=== PATIENT | male | born 1935 | race Caucasian/White ===

== ENCOUNTER 2017-03-16 20:12 | Emergency (ER) | payer OTHER ==
[~2017-03-16] VITALS: Ht 185.4 cm; Wt 86.5 kg
[2017-03-16 20:17] VITALS: TEMP 36.6; Ht 185.4 cm; Wt 86.5 kg
[2017-03-16] MEDS ORDERED: FURO-85 PO (20:41)
[2017-03-16] MEDS ORDERED: AMOX875T PO (20:41)
[2017-03-16] MEDS ORDERED: FLUT0.15 NAE (20:44)
[2017-03-16] MEDS ORDERED: AZEL0.1S2 NAE (20:44)
--- NOTE | 2017-03-16 20:58 | DIAGNOSTIC IMAGING REPORT ---
CHEST ONE VIEW PORTABLE CLINICAL HISTORY: cough dyspnea COMPARISON STUDY: No previous studies for comparison. FINDINGS: Heart top normal in terms of size. Minimal interstitial infiltrates both lung bases. Mid and upper lungs are clear. IMPRESSION: Minimal bibasilar parenchymal infiltrates. The above report was generated using voice recognition software. It may contain grammatical, syntax or spelling errors. Electronically signed by: Linden Briones M.D. 03/16/2017 8:57 PM Dictated Date/Time: 03/16/2017 8:57 PM
--- NOTE | 2017-03-16 21:20 | EMERGENCY ROOM VISIT NOTE ---
History Report prepared by Ghada: Nima Gates Under the Supervision of: Dr. Claude Roth D.O. First contact with patient: 20:20 Chief Complaint: CARDIAC ASSESSMENT Stated Complaint: HEART FAILURE History of Present Illness The patient is an 82 year old male who presents to the Emergency Room with complaints of constant lower extremity edema beginning a week ago. The patient states that he was told to come to the emergency department today for CHF by a nurse at [facility]. He notes that he went to [facility] today for sinus issues, and was put on amoxicillin and Lasix. He also complains of SOB and congestion. He reports that his legs are currently not as swollen and tight as they were yesterday. He states that his SOB symptoms worsen when he walks and uses the stairs, but thought this was due to his sinus infection. He denies any chest pain and leg pain. He states that he is currently taking a thyroid pill. Outpatient pro BNP was 1691, for his age greater than 1800 is considered abnormal. Additional blood work today showed a BUN of 24, creatine of 1.3. Electrolytes were normal, CBC was normal. Patient was started on Lasix 20mg 1-2 times per day for slight swelling and amoxicillin. Source of History: patient Onset: a week ago Position: other (lower extremities) Quality: other (edema) Timing: constant Modifying Factors (Worsening): movement, other (walking up the stairs) Associated Symptoms: + SOB, No chest pain Note: He also complains of congestion. He denies any leg pain. Review of Systems See HPI for pertinent positives & negatives. A total of 10 systems reviewed and were otherwise negative. Past Medical & Surgical Medical Problems: (1) Sinus infection Family History No pertinent family history stated. Social History Smoking Status: Never Smoker Marital Status: single Occupation Status: employed Current/Historical Medications Scheduled Amoxicillin & Pot Clavulanate (Augmentin 875-125 mg), 1 TAB PO BID Azelastine HCl (Azelastine Hydrochloride), 1 SPRAY EDELMIRA BID Fluticasone Propionate (Nasal) (Flonase Allergy Relief), 1 SPRAYS EDELMIRA BID Furosemide (Lasix), 20 MG PO DAILY Allergies Coded Allergies: Sulfa Antibiotics (Unverified Allergy, Unknown, RASH, 03/16/17) Physical Exam Vital Signs Date Time Temp Pulse Resp B/P (MAP) Pulse Ox O2 Delivery O2 Flow Rate FiO2 12/5/17 21:01 95 03/16/17 20:42 Room Air 03/16/17 20:17 36.6 109 22 155/83 96 Room Air Physical Exam CONSTITUTIONAL/VITAL SIGNS: Reviewed / noted above. GENERAL: Non-toxic in appearance. INTEGUMENTARY: Warm, dry, and [place]. HEAD: Normocephalic. EYES: without scleral icterus or trauma. ENT/OROPHARYNX: clear and moist. LYMPHADENOPATHY/NECK: Is supple without lymphadenopathy or meningismus. RESPIRATORY: Lungs clear and equal. CARDIOVASCULAR: Regular rate and rhythm. GI/ABDOMEN: Soft and nontender. No organomegaly or pulsatile mass. No rebound or guarding. Normal bowel sounds. EXTREMITIES: Warm and well perfused. Bilateral pitting pedal edema noted. BACK: No CVA tenderness. NEUROLOGICAL: Intact without focal deficits. PSYCHIATRIC: normal affect. MUSCULOSKELETAL: Normally developed with good muscle tone. Medical Decision & Procedures ER Provider Diagnostic Interpretation: Radiology results as stated below per my review and radiologist interpretation: CHEST ONE VIEW PORTABLE FINDINGS: Heart top normal in terms of size. Minimal interstitial infiltrates both lung bases. Mid and upper lungs are clear. IMPRESSION: Minimal bibasilar parenchymal infiltrates. The above report was generated using voice recognition software. It may contain grammatical, syntax or spelling errors. Electronically signed by: Linden Briones M.D. 03/16/2017 8:57 PM Laboratory Results Test 03/16/17 20:44 Bedside Troponin I 0.050 ng/ml (0-0.045) Laboratory results as stated above per my review. ECG Indication: SOB/dyspnea Rate (beats per minute): 106 Rhythm: sinus tachycardia Findings: RBBB, no ectopy, other (no acute injury) ED Course 2022: Previous medical records were reviewed. The patient was evaluated in room C6. A complete history and physical examination was performed. 2124: On reevaluation, the patient is doing well. I discussed the results and findings with the patient. He verbalized agreement of the treatment plan. The patient was discharged home. Medical Decision the differential was considered includes acute myocardial infarction, acute coronary syndrome, myocarditis, pericarditis, pericardial effusions /tamponade, esophageal perforation, pulmonary embolism, pneumonia, pneumothorax, cardiomyopathy, congestive heart, anemia , COPD/asthma exacerbation. This is an 82-year-old male who presents to the ED with a chief complaint of being called marylu and told to come in to the hospital for evaluation of congestive heart failure. The patient states that he went to the office today for sinus issues and lower extremity edema. He has had the edema for a couple of weeks now. This was new onset for him. The patient was discharged on Lasix for his lower extremity edema and also placed on Augmentin. The patient does have a little shortness of breath at times. He states that he feels like he has postnasal drip and has to cough to clear his throat on occasion. I did review the [facility] notes on the patient. The patient had blood work performed including a proBNP was noted to be 1691. The reference reports greater than 75 years old and needs to be greater than 1800 40 just heart failure. The patient's CBC was normal and the BUN is 24 and creatinine is 1.3. Complete metabolic panel was unremarkable. Today's twelve-lead EKG reveals a sinus tach at a rate of 106. The patient's exam reveals bilateral pitting pedal edema that is symmetric. He denies any calf pain, leg pain, chest pains or shortness of breath. He has not had recent surgery. The lungs are clear. Chest x-ray does report minimal bibasilar infiltrates. The patient was told to continue his Augmentin. He has not hypoxic and his breathing appears comfortable. He is felt to be stable for discharge and outpatient follow-up. He does have an echocardiogram scheduled. Blood Pressure Screening Patient's blood pressure: Elevated blood pressure Blood pressure disposition: Referred to PCP Impression Primary Impression: Pneumonia Additional Impression: Pedal edema Scribe Attestation The scribe's documentation has been prepared under my direction and personally reviewed by me in its entirety. I confirm that the note above accurately reflects all work, treatment, procedures, and medical decision making performed by me. Departure Information Dispostion Home / Self-Care Referrals No Doctor, Assigned (PCP) Forms IMPORTANT VISIT INFORMATION Patient Instructions My [facility], Pneumonia Additional Instructions Continue medications as prescribed by your doctor. Follow-up with them for outpatient echocardiogram. Return for any new or worsening symptoms. Problem Qualifiers
[2017-03-16 21:31] VITALS: BP 156/95; PULSE 107; O2SAT 95
== END 2017-03-16 21:31 | disposition home or self-care (01) ==
LOC: C.EDB 20:15 → C.EDC 21:31
DX: J18.9 Pneumonia, unspecified organism (principal); R60.0 Localized edema

== ENCOUNTER 2017-05-06 15:42 | Inpatient (IN) | payer OTHER ==
[~2017-05-06] VITALS: Ht 185.4 cm; Wt 77.1 kg
[~2017-05-06 15:42] MED LIST: AMOX875T PO; AZEL0.1S2 NAE; FLUT0.15 NAE; FURO-85 PO
[2017-05-06] MEDS ORDERED: ASPIRIN 325 MG ECTAB PO ONE (17:00)
--- NOTE | 2017-05-06 17:33 | DIAGNOSTIC IMAGING REPORT ---
CHEST ONE VIEW PORTABLE HISTORY: 82 years-old Male SOB, h/o pneumonia acute shortness of breath with history of pneumonia COMPARISON: Chest radiograph 03/16/2017 TECHNIQUE: Portable AP view of the chest FINDINGS: Cardiac silhouette is mildly enlarged, unchanged. Atherosclerosis of the aorta. There is no pneumothorax. Chronic coarse interstitial opacities redemonstrated. Similar appearing ill-defined subsegmental opacities of the left greater than right lung bases. Chronic appearing blunting of the costophrenic angles without large pleural effusion. No overt pulmonary edema. Bones of the chest appear grossly intact. Multilevel endplate spurring of the spine. IMPRESSION: 1. Similar-appearing subsegmental opacities of the left greater then right lung bases suggests atelectasis/scarring with pneumonia thought to be less likely. 2. Chronic coarse interstitial opacities. 3. Mild cardiomegaly without overt pulmonary edema. The above report was generated using voice recognition software. It may contain grammatical, syntax or spelling errors. Electronically signed by: Bassam Judd M.D. 05/06/2017 5:31 PM Dictated Date/Time: 05/06/2017 5:28 PM
[2017-05-06] MEDS ORDERED: LEVO1TAB35 PO (17:47)
[2017-05-06] MEDS ORDERED: ASPI-232 PO (17:47)
[2017-05-06] MEDS ORDERED: CARV3.122 PO (17:47)
[2017-05-06] MEDS ORDERED: LEVO50TA PO (17:47)
[2017-05-06] MEDS ORDERED: ATOR-22 PO (17:47)
[2017-05-06 17:53] LABS: BASO % 0.2 %; BASO ABS # 0.02 K/uL (0-0.2); EOS % 1.5 %; EOS ABS # 0.15 K/uL (0-0.5); HEMATOCRIT 45.8 % (42-52); HEMOGLOBIN 15.9 g/dL (14.0-18.0); IG# 0.08 K/uL (0.00-0.02); LYMPH % 18.6 %; MEAN CELL VOLUME 90.3 fL (80-100); MEAN CORPUSCULAR HEMOGLOBIN 31.4 pg (25-34); MEAN CORPUSCULAR HGB CONC 34.7 g/dl (32-36); MEAN PLATELET VOLUME 10.2 fL (7.4-10.4); MONO % 10.5 %; MONO ABS # 1.07 K/uL (0.11-0.59); NEUT % 68.4 %; NEUT ABS # 7.01 K/uL (1.4-6.5); PLATELET COUNT 248 K/uL (130-400); RED CELL DISTRIBUTION WIDTH CV 12.7 % (11.5-14.5); RED CELL DISTRIBUTION WIDTH SD 41.9 fL (36.4-46.3); WHITE BLOOD COUNT 10.23 K/uL (4.8-10.8)
--- NOTE | 2017-05-06 18:03 | EMERGENCY ROOM VISIT NOTE ---
ED Visit Note First contact with patient: 16:24 The patient was seen and examined with Dr. Linden Shea. I agree with the history, physical and findings. Please see the note for disposition and details. Patient's electrocardiogram was interpreted by me and stated below. Sinus rhythm with a rate of 88. WI intervals are within normal limits. QRS interval is increased at 105. QTc interval is increased at 527. No ST elevation or depression. No acute ischemic change. Compared to 03/16/17 - no change was noted. Patient was admitted to medicine for CHF exacerbation. Elevated pro BNP, elevated troponin. Elevated troponin is most likely thought to be due to CHF exacerbation. Discussed the findings with the hospitalist team who admitted the patient. They state they will trend troponins. ADDENDUM 0014 05/07/17: D-dimer was positive, called and alerted [facility] hospitalist who admitted the patient and notified him of results states he will follow up and order necessary diagnostic testing.
--- NOTE | 2017-05-06 18:09 | EMERGENCY ROOM VISIT NOTE ---
History First contact with patient: 16:24 Chief Complaint: SHORTNESS OF BREATH Stated Complaint: SOB, WEAKNESS- PNEUMONIA Nursing Triage Summary: "I ran out of breath. I can't walk across the room without gasping for air" Cough. No fever. Started on an ABX on 04/28 for presumed pneumonia per daughter. History of Present Illness 82M with a PMHX of Hypothyroidism and LE edema p/w with an acute (2 days) on chronic (x 2 months) exacerbation of SOB. Pt was talking to his daughter over the phone, daughter states that the patient was slightly more confused than usual yesterday, and today the patient felt so SOB that he requested his daughter bring him into the ER. Patient was recently in March started on Lasix for bilateral LE edema. He was also recently seen by his PCP and started on Levoquin for pneumonia. Patient denies any significant cardiac history however at a recent doctor's visit pt was told he had a heart attack in the past. Pt denies chest pain, he does have a non productive cough. Per [facility] chart review pt has orders to get a BNP. Recent [facility] Xrays in Apr showed evidence of Pneumonia and/or mild CHF. ROS: Recent weight loss due to poor appetite, no fevers, no chills, + SOB, no diarrhea, no vomiting, no hematuria. Meds: Synthroid, 20mg of Lasix BID since March, , Levofloxacin (Started on Apr 26) - last took meds this AM. SHX: Pt lives on his own and takes care of himself, performs all ADLs on his own. Never smoker. 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 Source of History: patient, other (daughter) Onset: two days ago Symptom Intensity: moderate Modifying Factors (Worsening): exertion (SOB worse on exertion) Modifying Factors (Relieving): rest (SOB improved w exertion) Associated Symptoms: + cough, + SOB, No LOC, No fevers, No chills, No headache, No chest pain, No nausea, No vomiting, No abdominal pain, No diarrhea Review of Systems See HPI for pertinent positives and negatives. A total of ten systems were reviewed and were otherwise negative. Past Medical/Surgical History Medical Problems: (1) Elevated troponin (2) Sinus infection (3) SOB (shortness of breath) on exertion Social History Smoking Status: Never Smoker Marital Status: single Occupation Status: employed Current/Historical Medications Scheduled Aspirin (Aspir-81), 81 MG PO DAILY Atorvastatin (Lipitor), 20 MG PO DAILY Azelastine HCl (Azelastine Hydrochloride), 1 SPRAY EDELMIRA BID Carvedilol (Coreg), 3.125 MG PO BID Fluticasone Propionate (Nasal) (Flonase Allergy Relief), 1 SPRAYS EDELMIRA BID Furosemide (Lasix), 20 MG PO BID17 Levofloxacin (Levaquin), 750 MG PO DAILY Levothyroxine Sodium (Synthroid), 50 MCG PO DAILY Physical Exam Vital Signs Date Time Temp Pulse Resp B/P (MAP) Pulse Ox O2 Delivery O2 Flow Rate FiO2 05/06/17 19:19 100 20 144/86 98 Room Air 05/06/17 18:27 97 05/06/17 18:25 96 20 146/87 97 Room Air 05/06/17 17:38 95 Room Air 05/06/17 17:18 88 20 127/77 97 Room Air 05/06/17 15:48 36.3 97 22 135/74 95 Room Air Physical Exam Gen: No acute distress. HEENT: Head - normocephalic and atraumatic. Pupils are equal, round, and reactive to light. Extraocular eye muscles are intact and sclera are anicteric. Nose - moist nasal mucosa without discharge. Mouth - moist buccal mucosa. Oropharynx is nonerythematous and there is no tonsillar exudate or edema noted. Neck: Supple; no JVD, nuchal rigidity, cervical lymphadenopathy, or auscultated bruits. Heart: Regular rate and rhythm. There is a normal S1 and S2 with no murmurs, clicks, or gallops appreciated. No JVD. Heart non displaced. * Lungs: Bilateral crackes on the lung bases. Abdomen: Soft, completely nontender, nondistended, with good bowel sounds. There are no palpable pulsatile masses or hepatosplenomegaly. There is no guarding, rigidity, or rebound noted. * Extremities: No evidence of cyanosis, clubbing, 2+ pitting edema. There are easily palpable peripheral pulses. Neuro:The patient is awake and alert, oriented to day, time, and place. Muscle strength is 5/5 in all 4 extremities. 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 There are no cerebellar signs. Medical Decision & Procedures ER Provider Diagnostic Interpretation: CHEST ONE VIEW PORTABLE HISTORY: 82 years-old Male SOB, h/o pneumonia acute shortness of breath with history of pneumonia COMPARISON: Chest radiograph 03/16/2017 TECHNIQUE: Portable AP view of the chest FINDINGS: Cardiac silhouette is mildly enlarged, unchanged. Atherosclerosis of the aorta. There is no pneumothorax. Chronic coarse interstitial opacities redemonstrated. Similar appearing ill-defined subsegmental opacities of the left greater than right lung bases. Chronic appearing blunting of the costophrenic angles without large pleural effusion. No overt pulmonary edema. Bones of the chest appear grossly intact. Multilevel endplate spurring of the spine. IMPRESSION: 1. Similar-appearing subsegmental opacities of the left greater then right lung bases suggests atelectasis/scarring with pneumonia thought to be less likely. 2. Chronic coarse interstitial opacities. 3. Mild cardiomegaly without overt pulmonary edema. Laboratory Results 05/06/17 17:32 Red Blood Count 5.07, Mean Corpuscular Volume 90.3, Mean Corpuscular Hemoglobin 31.4, Mean Corpuscular Hemoglobin Concent 34.7, Mean Platelet Volume 10.2, Neutrophils (%) (Auto) 68.4, Lymphocytes (%) (Auto) 18.6, Monocytes (%) (Auto) 10.5, Eosinophils (%) (Auto) 1.5, Basophils (%) (Auto) 0.2, Neutrophils # (Auto ) 7.01, Lymphocytes # (Auto) 1.90, Monocytes # (Auto) 1.07, Eosinophils # (Auto ) 0.15, Basophils # (Auto) 0.02 05/06/17 17:32 Test 05/06/17 17:32 05/06/17 17:35 05/06/17 20:09 White Blood Count 10.23 K/uL (4.8-10.8) Red Blood Count 5.07 M/uL (4.7-6.1) Hemoglobin 15.9 g/dL (14.0-18.0) Hematocrit 45.8 % (42-52) Mean Corpuscular Volume 90.3 fL (80-100) Mean Corpuscular Hemoglobin 31.4 pg (25-34) Mean Corpuscular Hemoglobin Concent 34.7 g/dl (32-36) Platelet Count 248 K/uL (130-400) Mean Platelet Volume 10.2 fL (7.4-10.4) Neutrophils (%) (Auto) 68.4 % Lymphocytes (%) (Auto) 18.6 % Monocytes (%) (Auto) 10.5 % Eosinophils (%) (Auto) 1.5 % Basophils (%) (Auto) 0.2 % Neutrophils # (Auto) 7.01 K/uL (1.4-6.5) Lymphocytes # (Auto) 1.90 K/uL (1.2-3.4) Monocytes # (Auto) 1.07 K/uL (0.11-0.59) Eosinophils # (Auto) 0.15 K/uL (0-0.5) Basophils # (Auto) 0.02 K/uL (0-0.2) RDW Standard Deviation 41.9 fL (36.4-46.3) RDW Coefficient of Variation 12.7 % (11.5-14.5) Immature Granulocyte % (Auto) 0.8 % Immature Granulocyte # (Auto) 0.08 K/uL (0.00-0.02) D-Dimer 620 ug/L FEU (0-500) Anion Gap 7.0 mmol/L (3-11) Est Creatinine Clear Calc Drug Dose 43.9 ml/min Estimated GFR () 56.7 Estimated GFR (Non- 48.9 BUN/Creatinine Ratio 16.5 (10-20) Calcium Level 8.4 mg/dl (8.5-10.1) Total Bilirubin 0.8 mg/dl (0.2-1) Aspartate Amino Transf (AST/SGOT) 28 U/L (15-37) Alanine Aminotransferase (ALT/SGPT) 28 U/L (12-78) Alkaline Phosphatase 56 U/L (45-117) Troponin I 0.077 ng/ml (0-0.045) Pro-B-Type Natriuretic Peptide 3273 pg/ml (0-1800) Total Protein 7.2 gm/dl (6.4-8.2) Albumin 3.1 gm/dl (3.4-5.0) Globulin 4.1 gm/dl (2.5-4.0) Albumin/Globulin Ratio 0.8 (0.9-2) Thyroid Stimulating Hormone (TSH) 3.660 uIu/ml (0.300-4.500) Free Thyroxine 1.25 ng/dl (0.80-1.60) Influenza Type A Antigen Neg for Influ A (NEG) Influenza Type B Antigen Neg for Influ B (NEG) Medications Administered Medications (Trade) Dose Ordered Sig/Angelique Route Start Time Stop Time Status Last Admin Dose Admin Aspirin (Ecotrin Tab) 325 mg NOW ONCE PO 05/06/17 17:00 05/06/17 17:01 DC 05/06/17 18:24 325 MG Medical Decision The patient's care and disposition was discussed with Dr. Kwon, Attending ED Physician. This is a 82M with SOB. Differential diagnosis include pneumonia, bronchitis, COPD/Asthma exacerbation, pneumothorax, pulmonary embolism, congestive heart failure, acute coronary syndrome. Triage Nursing notes were reviewed. ED Course included an extensive history and physical exam, labs, CXR and EKG. BNP = 3273 Trop = 0.077 TSH, CBC, CMP = normal 4:30 - Pt was seen by myself. 4:45 - Case was discussed with Dr. Kwon and initial ordered were placed. 6:00 - XRAY reviewed. 6:30 - Case was discussed with Dr. Kwon and it was determined that the pt would benefit from inpatient management for his CHF and elevated Troponin. 6:45- Family was updated. 7:15 - [facility] hospitalist was paged. 7:20 - [facility]. 7[facility]25 - D-Dimer ordered, 20mg IV Lasix and Diet order was placed for the patient. The patient meets criteria for hospital admission for CHF. Patient may also have an underlying pneumonia, however based on clinic exam and history I find that less likely. The pt was informed about the findings as listed above. All questions were answered. Impression Primary Impression: Congestive heart failure Additional Impression: Elevated troponin Departure Information Dispostion Home / Self-Care Condition FAIR Referrals Román Hawthorne D.OStephanie (PCP) Patient Instructions My [facility] Resident Involvement: Resident Care Provided Care Provided: Adult ED Problem Qualifiers
[2017-05-06 18:19] LABS: ALBUMIN 3.1 gm/dl (3.4-5.0); CALCIUM 8.4 mg/dl (8.5-10.1); CREATININE 1.35 mg/dl (0.60-1.40); POTASSIUM 3.9 mmol/L (3.5-5.1)
[2017-05-06 18:38] LABS: INFLUENZA B ANTIGEN Neg for Influ B (NEG)
[2017-05-06 18:39] LABS: TOTAL PROTEIN 7.2 gm/dl (6.4-8.2)
[2017-05-06] MEDS ORDERED: FUROSEMIDE INJ 20 MG in SYRINGE 0 ML IV ONE (19:30)
[2017-05-06] MEDS ORDERED: POLYETHYLENE (MIRALAX) 17 GM PACK PO PRN (19:45)
[2017-05-06] MEDS ORDERED: MAGNESIUM HYDROXIDE SUSP 30 ML UDC PO PRN (19:45)
[2017-05-06] MEDS ORDERED: ACETAMINOPHEN 325 MG TAB PO PRN (19:45)
[2017-05-06] MEDS ORDERED: NITROGLYCERIN 0.4 MG SL PER TAB CHARGE SL PRN (19:45)
[2017-05-06] MEDS ORDERED: ALUMINUM/MAGNESIUM/SIMETH (MAALOX MAX) 30 ML UDC PO PRN (19:45)
[2017-05-06] MEDS ORDERED: FUROSEMIDE 40 MG/4 ML VIAL ONE (20:32)
--- NOTE | 2017-05-06 20:51 | History and Physical ---
History & Physical Date & Time of Service: May 06, 2017 at 20:19 Chief Complaint: Sob, Weakness- Pneumonia Primary Care Physician: Román Hawthorne D.O. History of Present Illness Source: patient, family (daughter at bedside), clinic records, hospital records This is an 82yo M with a PMH of 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 Patient was seen in the clinic in March for sinusitis and SOB. Was started on Augmentin as well as lasix for SOB/bilateral lower extremity pitting edema. In April, patient was seen in clinic for continued SOB and was found to have bilateral lobe PNA and was given PO Levaquin. Was also evaluated in the cardio clinic with an echo and was found to have mild ischemic cardiomyopathy 2/2 a remote silent TX. Despite having intermittent SOB over the past 2 months, patient continued trying to exercise regularly. Over the last 2 days, however, patient noticed a significant increase in SOB, feeling unable to catch his breath walking from room to room in his home. Also endorses poor PO intake 2/2 reduced appetite. Denies any fever, chills, productive cough, sore throat, lightheadedness, palpitations, chest pain, abd pain, nausea, vomiting, dysuria, diarrhea or constipation. States that his legs were much more swollen earlier this week but has since increased his PO lasix dose to 40mg daily and swelling has decreased. Denies any history of DVTs/PEs. Has not increased sodium or fluid intake. Past Medical/Surgical History Medical Problems: (1) Hypothyroidism Status: Chronic (2) Ischemic cardiomyopathy Status: Chronic (3) Sinusitis, chronic Status: Chronic Family History Denies any history of heart disease. Social History Smoking Status: Never Smoker Alcohol Use: none Marital Status: Occupational Status: employed Allergies Coded Allergies: Sulfa Antibiotics (Unverified Allergy, Unknown, RASH, 05/06/17) Home Medications Scheduled Aspirin (Aspir-81), 81 MG PO DAILY Atorvastatin (Lipitor), 20 MG PO DAILY Azelastine HCl (Azelastine Hydrochloride), 1 SPRAY EDELMIRA BID Carvedilol (Coreg), 3.125 MG PO BID Fluticasone Propionate (Nasal) (Flonase Allergy Relief), 1 SPRAYS EDELMIRA BID Furosemide (Lasix), 20 MG PO BID17 Levofloxacin (Levaquin), 750 MG PO DAILY Levothyroxine Sodium (Synthroid), 50 MCG PO DAILY Review of Systems Ten systems reviewed and negative except as noted in the HPI. Physical Exam Vital Signs Date Time Temp Pulse Resp B/P (MAP) Pulse Ox O2 Delivery O2 Flow Rate FiO2 05/06/17 19:19 100 20 144/86 98 Room Air 05/06/17 18:27 97 05/06/17 18:25 96 20 146/87 97 Room Air 05/06/17 17:38 95 Room Air 05/06/17 17:18 88 20 127/77 97 Room Air 05/06/17 15:48 36.3 97 22 135/74 95 Room Air General Appearance: WD/WN, no apparent distress Head: normocephalic, atraumatic Eyes: normal inspection, PERRL, sclerae normal ENT: normal ENT inspection, hearing grossly normal, pharynx normal (moist mucous membranes ) Neck: supple, thyroid normal, trachea midline, + JVD Respiratory/Chest: chest non-tender, lungs clear, no respiratory distress, no accessory muscle use, + crackles (bibasilar crackles ) Cardiovascular: regular rate, rhythm, no murmur, normal peripheral pulses Abdomen/GI: non tender, soft, no organomegaly Back: normal inspection Extremities/Musculoskelatal: normal inspection, no calf tenderness, + pertinent finding (1+ pitting edema bilaterally ) Neurologic/Psych: no motor/sensory deficits, alert, normal mood/affect, oriented x 3 Skin: normal color, warm/dry, no rash Diagnostics Laboratory Results Results Past 24 Hours Test 05/06/17 17:32 05/06/17 17:35 05/06/17 20:09 Range/Units White Blood Count 10.23 4.8-10.8 K/uL Red Blood Count 5.07 4.7-6.1 M/uL Hemoglobin 15.9 14.0-18.0 g/dL Hematocrit 45.8 42-52 % Mean Corpuscular Volume 90.3 80-100 fL Mean Corpuscular Hemoglobin 31.4 25-34 pg Mean Corpuscular Hemoglobin Concent 34.7 32-36 g/dl Platelet Count 248 130-400 K/uL Mean Platelet Volume 10.2 7.4-10.4 fL Neutrophils (%) (Auto) 68.4 % Lymphocytes (%) (Auto) 18.6 % Monocytes (%) (Auto) 10.5 % Eosinophils (%) (Auto) 1.5 % Basophils (%) (Auto) 0.2 % Neutrophils # (Auto) 7.01 1.4-6.5 K/uL Lymphocytes # (Auto) 1.90 1.2-3.4 K/uL Monocytes # (Auto) 1.07 0.11-0.59 K/uL Eosinophils # (Auto) 0.15 0-0.5 K/uL Basophils # (Auto) 0.02 0-0.2 K/uL RDW Standard Deviation 41.9 36.4-46.3 fL RDW Coefficient of Variation 12.7 11.5-14.5 % Immature Granulocyte % (Auto) 0.8 % Immature Granulocyte # (Auto) 0.08 0.00-0.02 K/uL D-Dimer 620 0-500 ug/L FEU Sodium Level 136 136-145 mmol/L Potassium Level 3.9 3.5-5.1 mmol/L Chloride Level 102 98-107 mmol/L Carbon Dioxide Level 27 21-32 mmol/L Anion Gap 7.0 3-11 mmol/L Blood Urea Nitrogen 22 7-18 mg/dl Creatinine 1.35 0.60-1.40 mg/dl Est Creatinine Clear Calc Drug Dose 43.9 ml/min Estimated GFR () 56.7 Estimated GFR (Non- 48.9 BUN/Creatinine Ratio 16.5 10-20 Random Glucose 86 70-99 mg/dl Calcium Level 8.4 8.5-10.1 mg/dl Total Bilirubin 0.8 0.2-1 mg/dl Aspartate Amino Transf (AST/SGOT) 28 15-37 U/L Alanine Aminotransferase (ALT/SGPT) 28 12-78 U/L Alkaline Phosphatase 56 45-117 U/L Troponin I 0.077 0-0.045 ng/ml Pro-B-Type Natriuretic Peptide 3273 0-1800 pg/ml Total Protein 7.2 6.4-8.2 gm/dl Albumin 3.1 3.4-5.0 gm/dl Globulin 4.1 2.5-4.0 gm/dl Albumin/Globulin Ratio 0.8 0.9-2 Thyroid Stimulating Hormone (TSH) 3.660 0.300-4.500 uIu/ml Free Thyroxine 1.25 0.80-1.60 ng/dl Influenza Type A Antigen Neg for Influ A NEG Influenza Type B Antigen Neg for Influ B NEG Diagnostic Radiology CXR: IMPRESSION: 1. Similar-appearing subsegmental opacities of the left greater then right lung bases suggests atelectasis/scarring with pneumonia thought to be less likely. 2. Chronic coarse interstitial opacities. 3. Mild cardiomegaly without overt pulmonary edema. EKG Normal sinus rhythm, left axis deviation, right bundle branch block. No change from prior EKG Impression Assessment and Plan This is an 82yo M with a PMH of 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 Acute CHF exacerbation: -In setting of mild ischemic cardiomyopathy -SOB, bilateral LE swelling, JVD, bibasilar crackles on exam -CXR with mild cardiomegaly, congestion without overt pulmonary edema -BNP elevated to 3,273 -Given full dose aspirin, 20mg IV lasix dose in ED -Plan to continue with IV lasix 40mg BID -Cont baby aspirin, beta luana, atorvastatin -Recent echo with EF 45-49% -Cardio consulted -Repeat echo -Low Na diet Elevated troponin: -Likely demand ischemia in setting of poor PO intake x 3 weeks -No chest pain, no ischemic changes on EKG -Initial troponin of 0.077. Trend troponin -Repeat EKG in AM -Monitor on telemetry Hypothyroidism: -TSH, free T4 wnl -Cont home dose levothyroxine H/o bilateral lobe PNA, sinusitis: -Treated with PO Levaquin as out-patient -No remaining clinical concern for PNA -No leukocytosis DVT Ppx: SQ heparin Code status: FULL PCP: [facility] Dispo: Admitted to telemetry. Discharge planning ordered (patient lives alone and is >80yo). Patient seen in collaboration with Dr. Chopra. Please see addendum. ATTENDING ADDENDUM : pt seen and examined, care co ordinated with Madeleine Gordon PA-C labs and images reviewed 82 yo M with hx of ischemic Cardiomyopathy EF 45 % , presents with SOB , SIMPSON , orthopnea and swelling in bilateral lower ext P/E: GEN ; elderly male , appears to be younger than his stated age , no sign of distress, pleasant HEENT; + JVD HT : regular s1/s2 LUNGS; + crackles at both base ABDOMEN : soft, non tender EXT : + 1 bilat edema NEURO: No focal neurological deficit A/P: ACUTE DECOMPENSATED CHF WITH SYSTOLIC DYSFUNCTION : presents with vol overload given 40 mg IV Lasix in ER pt reports improvement of symptom -SOB cont diuresis 40 mg IV BID monitor Vol status daily PRP to assess renal function while getting Lasix ECHO , cardiology consulted please refer to documentation of Madeleine Gordon PA-C for further discussion of other issues Nicolasa Chopra MD Level of Care Telemetry Resuscitation Status FULL RESUSCITATION VTE Prophylaxis VTE Risk Assessment Done? Y/N: Yes Risk Level: Moderate Given or contraindicated: Unfractionated heparin SQ
[2017-05-06] MEDS: FUROSEMIDE INJ 40 MG in SYRINGE 0 ML IV SCH (21:00)
[2017-05-06 21:06] VITALS: BP 142/84; PULSE 113; TEMP 36.6; O2SAT 95; BMI 23.2
[2017-05-06 21:25] LABS: INR 1.1 (0.9-1.1)
[2017-05-06] MEDS: FLUTICASONE PROPIONATE NA SPR 16 GM BTL NAE SCH (21:56)
[2017-05-06] MEDS: CARVEDILOL 3.125 MG TAB PO SCH (21:58)
[2017-05-06 23:10] VITALS: BP 110/66; PULSE 90; TEMP 36.8; O2SAT 95
[2017-05-07] VITALS (7 sets, daily range): BP systolic 97–150; BP diastolic 58–87; PULSE 76–98; TEMP 36.6–36.9; O2SAT 94–99
[2017-05-07] MEDS: HEPARIN SOD 5000 UNIT/0.5 ML CARP SQ SCH ×4 (00:11→22:00)
[2017-05-07] MEDS: LEVOTHYROXINE 50 MCG TAB PO SCH (06:08)
[2017-05-07 07:44] LABS: HEMATOCRIT 45.8 % (42-52); HEMOGLOBIN 15.6 g/dL (14.0-18.0); MEAN CELL VOLUME 91.2 fL (80-100); MEAN CORPUSCULAR HEMOGLOBIN 31.1 pg (25-34); MEAN CORPUSCULAR HGB CONC 34.1 g/dl (32-36); PLATELET COUNT 244 K/uL (130-400); RED CELL DISTRIBUTION WIDTH CV 12.9 % (11.5-14.5); RED CELL DISTRIBUTION WIDTH SD 42.6 fL (36.4-46.3); WHITE BLOOD COUNT 9.82 K/uL (4.8-10.8)
--- NOTE | 2017-05-07 07:49 | Clinical Documentation Query ---
CLINICAL DOCUMENTATION QUERY QUERY 1 OF 2 An 82yo M with a PMH of mild ischemic cardiomyopathy (EF: 45-49%), hypothyroidism and chronic sinusitis who presents with worsening SOB x 2 days and admitted with acute CHF exacerbation. In your clinical opinion is this patient being managed for: ( ) Type 2 DC due to demand ischemia ( x ) Not Agree ( ) Other explanation of clinical findings (Please Explain) ( ) Unable to determine (Please Define) ( ) Need to Discuss The medical record reflects the following clinical findings, treatment, and risk factors. Clinical Indicators: Troponin 0.077 trending up to 0.089, ischemic cardiomyopathy, SOB Treatment: Telemetry, serial troponins, O2, Cardiology consult Risk Factors: Age, acute CHF, hx pneumonia, hx "silent DC" QUERY 2 OF 2 In your clinical opinion is this patient being managed for: ( x ) Acute systolic CHF ( ) Acute diastolic CHF ( ) Not Agree ( ) Other explanation of clinical findings (Please Explain) ( ) Unable to determine (Please Define) ( ) Need to Discuss The medical record reflects the following clinical findings, treatment, and risk factors. Clinical Indicators: Mild cardiomegaly, EF = 45-49%, bilateral lower leg edema, bibasilar crackles breath sounds, BNP = 3273 Treatment: IV Lasix, I&O, Echo, Cardiology consult Risk Factors: Age, cardiomyopathy, hx pneumonia, HTN, hx "remote silent DC" Please clarify and document your clinical opinion in the progress notes and discharge summary. Terms such as "probable", "suspected", "likely", "questionable", "possible", or "still to be ruled out" are acceptable. IF IN AGREEMENT, YOU MUST DOCUMENT ABOVE DIAGNOSTIC STATEMENT IN DAILY PROGRESS NOTES AND DISCHARGE SUMMARY. This document is not part of the patient's record. Thank You, Beatriz Morrow RN [phone]
[2017-05-07] MEDS: FLUTICASONE PROPIONATE NA SPR 16 GM BTL NAE SCH ×2 (08:12→20:07)
[2017-05-07] MEDS: FUROSEMIDE INJ 40 MG in SYRINGE 0 ML IV SCH ×2 (08:12→20:06)
[2017-05-07] MEDS: ASPIRIN 81 MG ECTAB PO SCH (08:13)
[2017-05-07] MEDS: ATORVASTATIN 20 MG TAB PO SCH (08:13)
[2017-05-07] MEDS: CARVEDILOL 3.125 MG TAB PO SCH ×2 (08:13→21:00)
[2017-05-07 08:14] LABS: CALCIUM 8.9 mg/dl (8.5-10.1); CREATININE 1.38 mg/dl (0.60-1.40); POTASSIUM 4.1 mmol/L (3.5-5.1)
--- NOTE | 2017-05-07 11:47 | Cardiology Consultation ---
Cardiology Consultation Date of Consultation: May 07, 2017 Requesting Physician: Nav Attending Or Manager: Jose (Linden Lemus PA-C) History of Present Illness Mr. Desai is a very pleasant 82 year old male who is being seen at the request of Dr. Chopra. Reasons for consultation include congestive heart failure and elevated troponin Mr. Desai notes chronic issues with sinusitis of many years duration. In March he presented with sinus drainage and was noted to have bilateral lower extremity peripheral edema. He was given furosemide to take as needed and referred for resting echocardiography which showed evidence of an old inferior wall myocardial infarction, mild ischemic cardiomyopathy with an EF of 45-49%. He was seen in the ER in March 2017 and diagnosed with pneumonia. Over the last 7-10 days he noted worsening sinus drainage, "fluid filling up my lungs." He also notes increased peripheral edema for which he increased his furosemide with improvement. He notes becoming markedly dyspneic yesterday, "I got to where I wasn't functioning." He notes becoming markedly dyspnea with any activity, comfortable only at rest. His daughter visited yesterday afternoon and advised ER evaluation. He was given IV furosemide and admitted with further IV furosemide administered. He notes improvement in his sinus drainage/ congestion, some improvement in his dyspnea, and improvement in his lower extremity peripheral edema. + Cough. + Sinus and chest congestion. + Peripheral edema. No abdominal bloating. No penile/scrotal edema. One pillow orthopnea without PND. He denies chest pain. Denies palpitations. No lightheadedness, dizziness, near syncope or syncope. No fevers or chills. No night sweats. Appetite has been OK. No rash. (Linden Lemus PA-C) Past Medical/Surgical History Problem List: Silent RCA distribution myocardial infarction. Mild ischemic cardiomyopathy, EF 45% to 49%. Hypothyroidism Hernia repair Sinus surgery (Linden Lemus PA-C) Family History Not notable for CAD. Father with stomach cancer. (Linden Lemus PA-C) Social History Nonsmoker. Remote heavy alcohol use while in the service. No illegal drug use. 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 . Lives alone. Grown children. (Linden Lemus PA-C) Review Of Systems General: No fever, chills, or night sweats. HEENT: No headache. No head trauma. Cardiovascular: See above. No near syncope or syncope. Pulmonary: + Cough productive of slimy phlegm. No hemoptysis. Gastrointestinal: No nausea, vomiting, diarrhea, or significant constipation. No melena or hematochezia. Skin: No rash. Musculoskeletal: Arthritis. Neurological: Denies history of TIA, CVA, or seizures Complete review of systems is as stated above, negative, or noncontributory. (Linden Lemus PA-C) Allergies Coded Allergies: Sulfa Antibiotics (Unverified Allergy, Unknown, RASH, 05/06/17) Medications Reported Home Medications Medications Dose Route/Sig Max Daily Dose Days Date Category Dose Instructions Aspir-81 (Aspirin) 81 Mg Tab 81 Mg PO DAILY 05/06/17 Reported Lipitor (Atorvastatin Calcium) 20 Mg Tab 20 Mg PO DAILY 05/06/17 Reported Coreg (Carvedilol) 3.125 Mg Tab 3.125 Mg PO BID 05/06/17 Reported Levaquin (Levofloxacin) 750 Mg Tab 750 Mg PO DAILY 10 05/06/17 Reported STARTED 04/28/17 Synthroid (Levothyroxine Sodium) 50 Mcg Tab 50 Mcg PO DAILY 05/06/17 Reported Azelastine Hydrochloride (Azelastine HCl) 0.1 % Spr 1 Shelby EDELMIRA BID 03/16/17 Reported Flonase Allergy Relief (Fluticasone Propionate (Nasal)) 50 Mcg/Act Spr 1 Sprays EDELMIRA BID 03/16/17 Reported Lasix (Furosemide) 20 Mg Tab 20 Mg PO BID17 03/16/17 Reported (Linden Lemus PA-C) Physical Exam Vital Signs (Last 8hrs): Last 8 Hrs Date Time Temp Pulse Resp B/P (MAP) Pulse Ox O2 Delivery O2 Flow Rate FiO2 05/07/17 08:00 Room Air 05/07/17 07:48 36.8 82 18 112/66 (81) 99 05/07/17 04:00 Room Air 05/07/17 03:50 36.8 87 16 100/66 (77) 94 Room Air General: Alert and Oriented x3. Conversational dyspnea. HEENT: Normocephalic Atraumatic. PERRLA, EOMI, conjunctiva and sclera clear Neck: Elevated JVD, 6 cm. + HJD. Respiratory: Bibasilar rales. No wheeze. No rhonchi. Cardiovascular: Irregular around 100 bpm. + Gallop. No rub. PMI is not displaced. Abdomen: Normal bowel sounds, soft nontender. no abdominal bruits. Extremities: Minimal edema. Mild chronic changes. No clubbing. No cyanosis. Distal pulses 2/4 bilaterally. Neuro: No focal deficits. Psychiatric: Normal affect. (Linden Lemus, MILLY) Data Last 24 Hours Test 05/06/17 17:32 05/06/17 17:35 05/07/17 01:32 05/07/17 07:24 White Blood Count 10.23 K/uL 9.82 K/uL Red Blood Count 5.07 M/uL 5.02 M/uL Hemoglobin 15.9 g/dL 15.6 g/dL Hematocrit 45.8 % 45.8 % Mean Corpuscular Volume 90.3 fL 91.2 fL Mean Corpuscular Hemoglobin 31.4 pg 31.1 pg Mean Corpuscular Hemoglobin Concent 34.7 g/dl 34.1 g/dl Platelet Count 248 K/uL 244 K/uL Mean Platelet Volume 10.2 fL 10.0 fL Neutrophils (%) (Auto) 68.4 % Lymphocytes (%) (Auto) 18.6 % Monocytes (%) (Auto) 10.5 % Eosinophils (%) (Auto) 1.5 % Basophils (%) (Auto) 0.2 % Neutrophils # (Auto) 7.01 K/uL Lymphocytes # (Auto) 1.90 K/uL Monocytes # (Auto) 1.07 K/uL Eosinophils # (Auto) 0.15 K/uL Basophils # (Auto) 0.02 K/uL RDW Standard Deviation 41.9 fL 42.6 fL RDW Coefficient of Variation 12.7 % 12.9 % Immature Granulocyte % (Auto) 0.8 % Immature Granulocyte # (Auto) 0.08 K/uL Prothrombin Time 11.4 SECONDS Prothromb Time International Ratio 1.1 D-Dimer 620 ug/L FEU Sodium Level 136 mmol/L 138 mmol/L Potassium Level 3.9 mmol/L 4.1 mmol/L Chloride Level 102 mmol/L 103 mmol/L Carbon Dioxide Level 27 mmol/L 28 mmol/L Anion Gap 7.0 mmol/L 6.0 mmol/L Blood Urea Nitrogen 22 mg/dl 24 mg/dl Creatinine 1.35 mg/dl 1.38 mg/dl Est Creatinine Clear Calc Drug Dose 43.9 ml/min 46.6 ml/min Estimated GFR () 56.7 55.2 Estimated GFR (Non- 48.9 47.6 BUN/Creatinine Ratio 16.5 17.4 Random Glucose 86 mg/dl 91 mg/dl Calcium Level 8.4 mg/dl 8.9 mg/dl Total Bilirubin 0.8 mg/dl Aspartate Amino Transf (AST/SGOT) 28 U/L Alanine Aminotransferase (ALT/SGPT) 28 U/L Alkaline Phosphatase 56 U/L Troponin I 0.077 ng/ml 0.089 ng/ml 0.074 ng/ml Pro-B-Type Natriuretic Peptide 3273 pg/ml Total Protein 7.2 gm/dl Albumin 3.1 gm/dl Globulin 4.1 gm/dl Albumin/Globulin Ratio 0.8 Thyroid Stimulating Hormone (TSH) 3.660 uIu/ml Free Thyroxine 1.25 ng/dl Influenza Type A Antigen Neg for Influ A Influenza Type B Antigen Neg for Influ B Magnesium Level 2.1 mg/dl April 07, 2017 Interpretation Summary (Dr. Med Larkin): The left ventricular cavity size is normal. The LV wall thickness is moderately increased (concentric). The inferior and posterior robbins are hypokinetic at the base and lmid level with all other wall segments bianka in a low normal fashion. The qualitative LV ejection fraction is 45-49% (mildly reduced). Mild aortic valve regurgitation is present. Mild mitral regurgitation is present. There is no evidence of pulmonary hypertension. EKG dated and timed 06-MAY-2017 @ 16:59:28: Normal sinus rhythm at 88 bpm with possible Left atrial enlargement, left axis deviation, right bundle branch block , old inferior infarct. EKG dated and timed 07-MAY-2017 @ 06:18:23: Normal sinus rhythm at 82 bpm with left axis deviation, right bundle branch block Telemetry: Currently sinus tachycardia at 110 bpm. Bradycardia down to 44 bpm overnight. Atrial and ventricular ectopy including PAC's, PVC's in singles and couplets, intermittent right bundle branch block. Admission CXR: Subsegmental opacities of the left greater then right lung bases suggests atelectasis/scarring with pneumonia thought to be less likely. Chronic coarse interstitial opacities. Mild cardiomegaly without overt pulmonary edema. (Linden Lemus PA-C) Assessment & Plan Signs and symptoms of acute decompensated systolic congestive heart failure though the degree of reported/observed dyspnea appears to be out of proportion to his physical examination findings this morning. History of mild ischemic cardiomyopathy with EF 45-49% RECOMMENDATIONS/PLAN: Consider further evaluation of PE. Resting echocardiography Continue IV furosemide Add Losartan 25 mg/day Continue evidence based beta-luana, ASA and statin Maintain telemetry ? Lexiscan nuclear stress testing versus diagnostic cardiac catheterization when compensated. Further recommendations pending the above, evaluation by Dr. Garcia, and his ongoing hospitalization. (Linden Lemus PA-C) Cardiology attending: Pt seen and examined, agree with findings and assessment as per Linden Jim. Pt does not examine as significantly volume overloaded and given acute sob would recommend PE work-up. Cardiac gaston would continue outpatient regimen along with addition of losartan as above. Will consider outpatient Lexiscan nuclear stress test based on follow up evaluation but no sign of active ischemia at this time. (Brendon Garcia, Wilmer.O.)
[2017-05-07] MEDS ORDERED: OPTIRAY 320 IV PRN (15:15)
--- NOTE | 2017-05-07 15:47 | DIAGNOSTIC IMAGING REPORT ---
CT ANGIOGRAM OF THE CHEST CLINICAL HISTORY: Dyspnea. COMPARISON STUDY: Chest x-ray dated 05/06/2017. TECHNIQUE: Following the IV administration of 94 cc of Optiray 320, CT angiogram of the chest was performed from the upper abdomen to the thoracic inlet utilizing the pulmonary embolus protocol. Images are reviewed in the axial, sagittal, and coronal planes. 3-D MIPS images are created and assessed. IV contrast was administered without complication. A dose lowering technique was utilized adhering to the principles of ALARA. The examination is moderately compromised by motion artifact. CT DOSE: 334.57 mGy.cm FINDINGS: Thyroid: Atrophic. Thoracic aorta: The thoracic aorta is normal in caliber and demonstrates standard 3-vessel arch anatomy. The thoracic aorta is not well opacified. Pulmonary vasculature: The pulmonary trunk is normal in caliber. There are no filling defects identified in main, lobar, or proximal segmental pulmonary branches to suggest pulmonary embolus. Evaluation of the peripheral vessels is degraded by motion artifact. Heart: The heart is markedly enlarged and there is a small pericardial effusion. The coronary arteries are densely calcified. Lungs and pleural spaces: Evaluation of the lung parenchyma is degraded by motion artifact. Subpleural reticulation is seen throughout both lungs, greatest at the lung bases where there is associated dependent groundglass change. No lobar consolidation or pleural effusion is identified. The trachea and central airways appear clear. Scattered calcified granulomas are identified. Mediastinum: There is no mediastinal lymphadenopathy. Veronica: Clear. Axillae: There is no axillary lymphadenopathy. Upper abdomen: Partially visualized upper abdominal viscera is within normal limits. Skeletal structures: The skeletal structures are osteopenic. Mild degenerative change is noted throughout the thoracic spine. No lytic or blastic bony lesions are seen. IMPRESSION: 1. There is no evidence of pulmonary embolus in the main, lobar, or proximal segmental pulmonary arteries. Evaluation of the peripheral branches is degraded by motion artifact. 2. Marked cardiomegaly and small pericardial effusion. 3. There is no lobar consolidation or pleural effusion. 4. Subpleural reticulation is seen throughout both lungs and is likely related to chronic lung disease. Dependent groundglass change is seen at both lung bases. This could be related to chronic lung disease, atelectasis, and/or an infectious/inflammatory pneumonitis. Clinical correlation will be required. Electronically signed by: Pino Yeager M.D. 05/07/2017 3:46 PM Dictated Date/Time: 05/07/2017 3:42 PM
--- NOTE | 2017-05-07 19:00 | Progress Note ---
Medicine Progress Note Date & Time of Visit: May 07, 2017 at 18:57. Subjective Patient states his only complaint is sinus drainage and ongoing post nasal drip. He feels his breathing has improved. No overnight events noted. Tolerating PO without difficulty. Has been ambulating without difficulty. LE edema improved. Objective Last 8 Hrs Date Time Temp Pulse Resp B/P (MAP) Pulse Ox O2 Delivery O2 Flow Rate FiO2 05/07/17 16:00 95 Room Air 05/07/17 15:03 36.6 76 18 100/63 (75) 95 Room Air 05/07/17 12:00 Room Air 05/07/17 11:43 36.7 92 16 113/75 (88) 98 Physical Exam: GENERAL: Patient is in no acute distress. HEENT: No acute trauma, normocephalic, mucous membranes moist, no nasal congestion, no scleral icterus, conjunctivae clear. NECK: No stridor, trachea is midline. LUNGS: Clear to auscultation bilaterally, no wheeze, no rhonchi, breath sounds equal. HEART: + gallop, regular rate and rhythm. S1 and S2 auscultated ABDOMEN: Soft, nontender, bowel sounds positive, no hepatosplenomegaly EXTREMITIES: No cyanosis or edema, full range of motion of all the joints without pain or difficulty, no signs for acute trauma. NEUROLOGIC: Oriented x 3, no acute motor or sensory deficits, no focal weakness. SKIN: No rash, no jaundice, no diaphoresis. Laboratory Results: Last 24 Hours Test 05/07/17 01:32 05/07/17 07:24 05/07/17 14:02 Troponin I 0.089 ng/ml 0.074 ng/ml 0.071 ng/ml White Blood Count 9.82 K/uL Red Blood Count 5.02 M/uL Hemoglobin 15.6 g/dL Hematocrit 45.8 % Mean Corpuscular Volume 91.2 fL Mean Corpuscular Hemoglobin 31.1 pg Mean Corpuscular Hemoglobin Concent 34.1 g/dl RDW Standard Deviation 42.6 fL RDW Coefficient of Variation 12.9 % Platelet Count 244 K/uL Mean Platelet Volume 10.0 fL Sodium Level 138 mmol/L Potassium Level 4.1 mmol/L Chloride Level 103 mmol/L Carbon Dioxide Level 28 mmol/L Anion Gap 6.0 mmol/L Blood Urea Nitrogen 24 mg/dl Creatinine 1.38 mg/dl Est Creatinine Clear Calc Drug Dose 46.6 ml/min Estimated GFR () 55.2 Estimated GFR (Non- 47.6 BUN/Creatinine Ratio 17.4 Random Glucose 91 mg/dl Calcium Level 8.9 mg/dl Magnesium Level 2.1 mg/dl Assessment & Plan ACUTE CHF EXACERBATION: -In setting of mild ischemic cardiomyopathy -SOB, bilateral LE swelling, JVD, bibasilar crackles on exam -CXR with mild cardiomegaly, congestion without overt pulmonary edema -BNP elevated to 3,273 -Given full dose aspirin, 20mg IV lasix dose in ED -Plan to continue with IV lasix 40mg BID -Cont baby aspirin, beta luana, atorvastatin -Recent echo with EF 45-49% -Cardio consulted, appreciate recs -TTE: -Low Na diet -CT negative for PE TROPONIN ELEVATION: -Likely demand ischemia in setting of poor PO intake x 3 weeks -No chest pain, no ischemic changes on EKG -Initial troponin of 0.077. Trend troponin -Repeat EKG in AM -Monitor on telemetry HYPOTHYROIDISM: -TSH, free T4 normal -continue home dose levothyroxine RECENT PNEUMONIA and SINUSITIS: -Treated with PO Levaquin as out-patient -No remaining clinical concern for infection but patient does complain of persistent drainage Current Inpatient Medications: Current Inpatient Medications Medications (Trade) Dose Ordered Sig/Angelique Route Start Time Stop Time Status Last Admin Dose Admin Heparin Sodium (Porcine) (Heparin Sq 5000 Unit/0.5ml) 5,000 unit Q8 SQ 05/06/17 23:00 06/05/17 22:59 05/07/17 13:31 5,000 UNIT Acetaminophen (Tylenol Tab) 650 mg Q4H PRN PO 05/06/17 19:45 06/05/17 19:44 Al Hydrox/Mg Hydrox/Simethicone (Maalox Max Susp) 15 ml Q4H PRN PO 05/06/17 19:45 06/05/17 19:44 Magnesium Hydroxide (Milk Of Magnesia Susp) 30 ml Q12H PRN PO 05/06/17 19:45 06/05/17 19:44 Nitroglycerin (Nitrostat Tab) 0.4 mg UD PRN SL 05/06/17 19:45 06/05/17 19:44 Aspirin (Ecotrin Tab) 81 mg QAM PO 05/07/17 09:00 06/06/17 08:59 05/07/17 08:13 81 MG Polyethylene (Miralax Powder Packet) 17 gm DAILY PRN PO 05/06/17 19:45 06/05/17 19:44 Furosemide 40 mg/ Syringe 4 ml @ 4 mls/min Q12 IV 05/06/17 21:00 06/05/17 20:59 05/07/17 08:12 4 MLS/MIN Atorvastatin Calcium (Lipitor Tab) 20 mg DAILY PO 05/07/17 09:00 06/06/17 08:59 05/07/17 08:13 20 MG Carvedilol (Coreg Tab) 3.125 mg BID PO 05/06/17 21:00 06/05/17 20:59 05/07/17 08:13 3.125 MG Fluticasone Propionate (Flonase Nasal [place]) 1 sprays BID EDELMIRA 05/06/17 21:00 06/05/17 20:59 05/07/17 08:12 1 SPRAYS Levothyroxine Sodium (Synthroid Tab) 50 mcg DAILYBB PO 05/07/17 06:00 06/06/17 06:59 05/07/17 06:08 50 MCG Losartan Potassium (coZAAR TAB) 25 mg QPM PO 05/07/17 21:00 06/06/17 20:59 Ioversol (Optiray 320) 100 ml UD PRN IV 05/07/17 15:15 05/11/17 15:14
[2017-05-07] MEDS: LOSARTAN POTASSIUM 25 MG TAB PO SCH (20:09)
[2017-05-08 03:55] VITALS: BP 103/63; PULSE 87; TEMP 36.9; O2SAT 96
[2017-05-08] MEDS: HEPARIN SOD 5000 UNIT/0.5 ML CARP SQ SCH ×3 (06:17→21:10)
[2017-05-08] MEDS: LEVOTHYROXINE 50 MCG TAB PO SCH (06:17)
[2017-05-08 06:42] LABS: HEMATOCRIT 48.2 % (42-52); HEMOGLOBIN 16.6 g/dL (14.0-18.0); MEAN CELL VOLUME 91.8 fL (80-100); MEAN CORPUSCULAR HEMOGLOBIN 31.6 pg (25-34); MEAN CORPUSCULAR HGB CONC 34.4 g/dl (32-36); PLATELET COUNT 279 K/uL (130-400); RED CELL DISTRIBUTION WIDTH CV 13.1 % (11.5-14.5); RED CELL DISTRIBUTION WIDTH SD 43.3 fL (36.4-46.3); WHITE BLOOD COUNT 15.05 K/uL (4.8-10.8)
[2017-05-08 07:16] LABS: CALCIUM 9.1 mg/dl (8.5-10.1); CREATININE 1.9 mg/dl (0.60-1.40); POTASSIUM 3.6 mmol/L (3.5-5.1)
[2017-05-08 07:42] VITALS: BP 103/61; PULSE 70; TEMP 36.5; O2SAT 97
[2017-05-08] MEDS: FLUTICASONE PROPIONATE NA SPR 16 GM BTL NAE SCH ×2 (09:26→21:08)
[2017-05-08] MEDS: ATORVASTATIN 20 MG TAB PO SCH (09:26)
[2017-05-08] MEDS: CARVEDILOL 3.125 MG TAB PO SCH ×2 (09:26→21:09)
[2017-05-08] MEDS: FUROSEMIDE INJ 40 MG in SYRINGE 0 ML IV SCH (09:26)
[2017-05-08] MEDS: ASPIRIN 81 MG ECTAB PO SCH (09:27)
[2017-05-08 11:15] VITALS: BP 95/60; PULSE 75; TEMP 36.6; O2SAT 96
[2017-05-08] MEDS ORDERED: SODIUM CHLORIDE 0.9% 500ML 500 ML IV SCH (11:15)
[2017-05-08 12:05] LABS: CALCIUM 8.9 mg/dl (8.5-10.1); CREATININE 1.57 mg/dl (0.60-1.40); PHOSPHORUS 4.5 mg/dl (2.5-4.9); POTASSIUM 3.5 mmol/L (3.5-5.1)
--- NOTE | 2017-05-08 12:18 | PROGRESS NOTE ---
DATE: 05/08/2017 FOLLOWUP VISIT SUBJECTIVE: This is an 82-year-old male patient who was admitted with shortness of breath. The patient has chronic sinusitis with postnasal drip, which may be contributing to his shortness of breath as he only was found to have a mild ischemic cardiomyopathy with an estimated left ventricular ejection fraction of 45%-49% in the past. The patient does have an echocardiogram pending. This morning, he had some dizziness, which may have been brought on by intravenous Lasix that was given to him. He is receiving some IV fluids. He is also eating lunch. OBJECTIVE: VITAL SIGNS: Blood pressure is 90/60, pulse is regular at 75. He is afebrile. GENERAL: He is alert and oriented, no acute distress. HEENT: Normocephalic. Pupils are equal and reactive to light. Extraocular muscles are intact bilaterally. NECK: The neck veins are flat. Carotids have good upstrokes bilaterally without bruits. Thyroid is nonpalpable. RESPIRATORY: Breath sounds equal bilaterally and clear to auscultation. CARDIOVASCULAR: Heart has a regular rhythm. Normal S1, S2. No S3, S4. No cardiac rubs or murmurs. GASTROINTESTINAL: Abdomen is soft, nontender without organomegaly. EXTREMITIES: Free of edema, digit clubbing, or cyanosis. NEUROLOGIC: Grossly intact. SKIN: Warm to touch. LYMPH NODES: Negative to palpation. LABORATORY DATA: WBC count is 15, hemoglobin 16.6, potassium is 3.6, creatinine is 1.9. IMPRESSION: 1. Chronic sinusitis with possible bronchitis. 2. Mild congestive heart failure. RECOMMENDATIONS: As mentioned above, the patient was given IV diuretics this morning and then became dizzy with hypotension. The diuretics have been cut back. At this point, I will review his echocardiogram when it is completed and make further recommendations following the above.
[2017-05-08 14:58] VITALS: BP 111/66; PULSE 86; TEMP 36.4; O2SAT 94
[2017-05-08] MEDS: FUROSEMIDE 20 MG TAB PO SCH (16:58)
--- NOTE | 2017-05-08 18:26 | Progress Note ---
Medicine Progress Note Date & Time of Visit: May 08, 2017 at 18:26. Subjective Patient was having a great deal of cramping in his legs overnight and also began having episodes of dizziness with standing or position changes. No other overnight events noted. Has been taking in PO well. Daughter was at the bedside and was updated. Re-evaluated later after a small amount of IV fluids and patient's symptoms of dizziness and cramping have improved. Objective Last 8 Hrs Date Time Temp Pulse Resp B/P (MAP) Pulse Ox O2 Delivery O2 Flow Rate FiO2 05/08/17 16:00 Room Air 05/08/17 14:58 36.4 86 20 111/66 (81) 94 Room Air 05/08/17 12:00 Room Air 05/08/17 11:15 36.6 75 18 95/60 (72) 96 Room Air Physical Exam: GENERAL: Patient is in no acute distress. HEENT: No acute trauma, normocephalic, mucous membranes moist, no nasal congestion, no scleral icterus, conjunctivae clear. NECK: No stridor, trachea is midline. LUNGS: Clear to auscultation bilaterally, no wheeze, no rhonchi, breath sounds equal. HEART: + gallop, regular rate and rhythm. S1 and S2 auscultated ABDOMEN: Soft, nontender, bowel sounds positive, no hepatosplenomegaly EXTREMITIES: No cyanosis or edema, full range of motion of all the joints without pain or difficulty, no signs for acute trauma. NEUROLOGIC: Oriented x 3, no acute motor or sensory deficits, no focal weakness. SKIN: No rash, no jaundice, no diaphoresis. Laboratory Results: Last 24 Hours Test 05/08/17 06:16 05/08/17 11:02 05/08/17 11:12 White Blood Count 15.05 K/uL Red Blood Count 5.25 M/uL Hemoglobin 16.6 g/dL Hematocrit 48.2 % Mean Corpuscular Volume 91.8 fL Mean Corpuscular Hemoglobin 31.6 pg Mean Corpuscular Hemoglobin Concent 34.4 g/dl RDW Standard Deviation 43.3 fL RDW Coefficient of Variation 13.1 % Platelet Count 279 K/uL Mean Platelet Volume 10.0 fL Sodium Level 134 mmol/L 134 mmol/L Potassium Level 3.6 mmol/L 3.5 mmol/L Chloride Level 98 mmol/L 100 mmol/L Carbon Dioxide Level 28 mmol/L 24 mmol/L Anion Gap 8.0 mmol/L 10.0 mmol/L Blood Urea Nitrogen 36 mg/dl 37 mg/dl Creatinine 1.90 mg/dl 1.57 mg/dl Est Creatinine Clear Calc Drug Dose 33.5 ml/min 40.5 ml/min Estimated GFR () 37.5 47.2 Estimated GFR (Non- 32.3 40.7 BUN/Creatinine Ratio 18.8 23.5 Random Glucose 130 mg/dl 124 mg/dl Calcium Level 9.1 mg/dl 8.9 mg/dl Magnesium Level 2.4 mg/dl 2.2 mg/dl Bedside Glucose 117 mg/dl Phosphorus Level 4.5 mg/dl Troponin I 0.059 ng/ml Assessment & Plan ACUTE CHF EXACERBATION: -in setting of mild ischemic cardiomyopathy -on presentation was SOB, with bilateral LE swelling, JVD, bibasilar crackles on exam -CXR with mild cardiomegaly, congestion without overt pulmonary edema -BNP elevated to 3,273 -Given full dose aspirin, 20mg IV lasix dose in ED -was on IV lasix 40mg BID, stopped today and switched to PO -continue aspirin, beta luana, atorvastatin -Recent echo with EF 45-49% -Cardio consulted, appreciate recs -TTE repeat: -CT negative for PE, no evidence of pneumonia TROPONIN ELEVATION: -likely from demand ischemia -No chest pain, no ischemic changes on EKG -Initial troponin of 0.077. Trended down -Monitor on telemetry HYPOTHYROIDISM: -TSH, free T4 normal -continue home dose levothyroxine RECENT PNEUMONIA and SINUSITIS: -completed a course of PO Levaquin as outpatient -No remaining clinical concern for infection but patient does complain of persistent drainage Current Inpatient Medications: Current Inpatient Medications Medications (Trade) Dose Ordered Sig/Angelique Route Start Time Stop Time Status Last Admin Dose Admin Heparin Sodium (Porcine) (Heparin Sq 5000 Unit/0.5ml) 5,000 unit Q8 SQ 05/06/17 23:00 06/05/17 22:59 05/08/17 14:06 5,000 UNIT Acetaminophen (Tylenol Tab) 650 mg Q4H PRN PO 05/06/17 19:45 06/05/17 19:44 Al Hydrox/Mg Hydrox/Simethicone (Maalox Max Susp) 15 ml Q4H PRN PO 05/06/17 19:45 06/05/17 19:44 Magnesium Hydroxide (Milk Of Magnesia Susp) 30 ml Q12H PRN PO 05/06/17 19:45 06/05/17 19:44 Nitroglycerin (Nitrostat Tab) 0.4 mg UD PRN SL 05/06/17 19:45 06/05/17 19:44 Aspirin (Ecotrin Tab) 81 mg QAM PO 05/07/17 09:00 06/06/17 08:59 05/08/17 09:27 81 MG Polyethylene (Miralax Powder Packet) 17 gm DAILY PRN PO 05/06/17 19:45 06/05/17 19:44 Atorvastatin Calcium (Lipitor Tab) 20 mg DAILY PO 05/07/17 09:00 06/06/17 08:59 05/08/17 09:26 20 MG Carvedilol (Coreg Tab) 3.125 mg BID PO 05/06/17 21:00 06/05/17 20:59 05/08/17 09:26 3.125 MG Fluticasone Propionate (Flonase Nasal [place]) 1 sprays BID EDELMIRA 05/06/17 21:00 06/05/17 20:59 05/08/17 09:26 1 SPRAYS Levothyroxine Sodium (Synthroid Tab) 50 mcg DAILYBB PO 05/07/17 06:00 06/06/17 06:59 05/08/17 06:17 50 MCG Losartan Potassium (coZAAR TAB) 25 mg QPM PO 05/07/17 21:00 06/06/17 20:59 05/07/17 20:09 25 MG Ioversol (Optiray 320) 100 ml UD PRN IV 05/07/17 15:15 05/11/17 15:14 Furosemide (Lasix Tab) 20 mg BID17 PO 05/08/17 17:00 06/07/17 16:59 05/08/17 16:58 20 MG Enteral Nutritional Formula (Boost) 1 can DAILY PO 05/09/17 09:00 06/08/17 08:59
[2017-05-08 18:40] VITALS: Ht 185.4 cm; Wt 77.1 kg
[2017-05-08 19:25] VITALS: BP 113/65; PULSE 87; TEMP 36.4; O2SAT 93
[2017-05-08] MEDS: LOSARTAN POTASSIUM 25 MG TAB PO SCH (21:09)
[2017-05-08 23:22] VITALS: BP 103/57; PULSE 89; TEMP 36.7; O2SAT 95
[2017-05-09] VITALS (8 sets, daily range): BP systolic 95–127; BP diastolic 56–73; PULSE 76–91; TEMP 36.5–37; O2SAT 94–97
[2017-05-09] MEDS: LEVOTHYROXINE 50 MCG TAB PO SCH (05:47)
[2017-05-09] MEDS: HEPARIN SOD 5000 UNIT/0.5 ML CARP SQ SCH ×3 (05:48→21:46)
[2017-05-09 06:34] LABS: HEMATOCRIT 43.5 % (42-52); HEMOGLOBIN 14.8 g/dL (14.0-18.0); MEAN CORPUSCULAR HEMOGLOBIN 31.3 pg (25-34); MEAN PLATELET VOLUME 10.3 fL (7.4-10.4); PLATELET COUNT 258 K/uL (130-400); RED CELL DISTRIBUTION WIDTH CV 12.9 % (11.5-14.5); RED CELL DISTRIBUTION WIDTH SD 43.4 fL (36.4-46.3); WHITE BLOOD COUNT 10.29 K/uL (4.8-10.8)
[2017-05-09 06:42] LABS: CALCIUM 8.6 mg/dl (8.5-10.1); CREATININE 1.5 mg/dl (0.60-1.40); POTASSIUM 3.9 mmol/L (3.5-5.1)
[2017-05-09] MEDS: FLUTICASONE PROPIONATE NA SPR 16 GM BTL NAE SCH ×2 (08:06→20:50)
[2017-05-09] MEDS: BOOST VANILLA PO SCH (08:06)
[2017-05-09] MEDS: ASPIRIN 81 MG ECTAB PO SCH (08:07)
[2017-05-09] MEDS: ATORVASTATIN 20 MG TAB PO SCH (08:07)
[2017-05-09] MEDS: CARVEDILOL 3.125 MG TAB PO SCH (08:07)
[2017-05-09] MEDS: FUROSEMIDE 20 MG TAB PO SCH (08:07)
--- NOTE | 2017-05-09 11:39 | PROGRESS NOTE ---
DATE: 05/09/2017 FOLLOWUP VISIT SUBJECTIVE: The patient is an 82-year-old male who was admitted with mild congestive heart failure, but has been having symptoms of dizziness and what he describes as wooziness since at home and now after admission. He states this morning he was fine and then got up to do his bathroom routine and just has not felt well. He feels out of sorts, lightheadedness and woozy. He denies shortness of breath or chest pain. He had an echocardiogram that was ordered earlier in the admission that has not been completed and I will call the cardiopulmonary lab to see if that can be done today. OBJECTIVE: VITAL SIGNS: Blood pressure is 95/60 and pulse is regular at 88. He is afebrile. HEENT: Normocephalic. Pupils are equal and reactive to light. Extraocular muscles are intact bilaterally. NECK: The neck veins are flat. Carotids have good upstrokes bilaterally without bruits. Thyroid is nonpalpable. RESPIRATORY: Breath sounds are equal bilaterally and clear to auscultation. CARDIOVASCULAR: Heart has a regular rhythm. Normal S1 and S2. No S3 or S4. No cardiac rubs or murmurs. GASTROINTESTINAL: Abdomen is soft and nontender without organomegaly. EXTREMITIES: Free of edema, digit clubbing, or cyanosis. NEUROLOGIC: Grossly intact. SKIN: Warm to touch. LYMPH NODES: Negative to palpation. IMPRESSION: 1. Dizziness and wooziness, which may be related to low blood pressure and to the addition of medications this admission. 2. Mild congestive heart failure. 3. Mild systolic dysfunction. RECOMMENDATIONS: The patient has been given Lasix and started on losartan since his admission here to the hospital. His blood pressure is low this morning and may be contributing to the above symptoms. His Lasix was discontinued and I agree with that maneuver. I would also hold his carvedilol for now and allow his blood pressure to come up. As stated above, the echocardiogram that was ordered earlier in the admission has not been completed and I will check cardiopulmonary to make sure that is done today.
--- NOTE | 2017-05-09 13:17 | ECHOCARDIOGRAM REPORT ---
*NOTICE TO RECEIVING DEMOCRAT AGENCY This information is strictly Confidential and protected under [place] law. [place] law prohibits you from making any further disclosure of this information unless further disclosure is expressly permitted by the written consent of the person to whom it pertains or is authorized by law. A general authorization for the release of medical or other information is not sufficient for this purpose. Hospital accepts no responsibility if the information is made available to any other person, INCLUDING THE PATIENT. Interpretation Summary * Name: VICTOR HUGO GODDARD Study Date: 05/09/2017 11:10 AM BP: 95/58 mmHg * Patient Location: C.2T\S\S239\S\2 HR: 88 * : 1935 (M/d/yyy) Gender: Male Height: 72 in * Age: 82 yrs Ethnicity: [place] Weight: 171 lb * Ordering Physician: Silvio Houston * Referring Physician: Self, Referred * Performed By: Janay Quigley RDCS * * Reason For Study: Congestive Heart Failure * BSA: 2.0 m2 * -- Conclusions -- * The left ventricular cavity is small. * There is severe concentric left ventricular hypertrophy. * Ejection Fraction = 50-55%. * The right ventricular systolic function is normal. * The left atrium is mildly dilated. * The right atrium is mildly dilated. * Mild aortic regurgitation. * There is trace mitral regurgitation. * There is mild to moderate tricuspid regurgitation. Procedure Details * A complete two-dimensional transthoracic echocardiogram was performed (2D, M-mode, Doppler and color flow Doppler). Left Ventricle * The left ventricular cavity is small. * There is severe concentric left ventricular hypertrophy. * Ejection Fraction = 50-55%. * Left ventricular systolic function is normal. * The left ventricular wall motion is normal. Right Ventricle * The right ventricle is normal size. * The right ventricular systolic function is normal. Atria * The left atrium is mildly dilated. * The right atrium is mildly dilated. * The interatrial septum is intact with no evidence for an atrial septal defect. Mitral Valve * The mitral valve leaflets appear thickened, but open well. * There is trace mitral regurgitation. Tricuspid Valve * The tricuspid valve is not well visualized, but is grossly normal. * There is mild to moderate tricuspid regurgitation. Aortic Valve * The aortic valve is tricuspid. The leaflet thickness if normal. There is no aortic stenosis, and no significant insufficiency. * The aortic valve opens well. * Mild aortic regurgitation. Pulmonic Valve * The pulmonic valve is not well visualized. Great Vessels * The aortic root and proximal ascending aorta are normal sized. Pericardium/Pleural * There is no pericardial effusion. MMode 2D Measurements and Calculations IVSd 1.6 cm IVSs 1.7 cm LVIDd 3.9 cm LVIDs 2.9 cm LVPWd 1.8 cm LVPWs 2.2 cm IVS/LVPW 0.90 FS 25.6 % EDV(Teich) 64.4 ml ESV(Teich) 31.5 ml EF(Teich) 51.1 % EDV(cubed) 57.6 ml ESV(cubed) 23.7 ml EF(cubed) 58.8 % % IVS thick 8.4 % % LVPW thick 23.5 % LV mass(C)d 269.7 grams LV mass(C)dI 135.3 grams/m\S\2 LV mass(C)s 244.2 grams LV mass(C)sI 122.5 grams/m\S\2 SV(Teich) 32.9 ml SI(Teich) 16.5 ml/m\S\2 SV(cubed) 33.9 ml SI(cubed) 17.0 ml/m\S\2 EPSS 1.3 cm Ao root diam 3.0 cm Ao root area 7.3 cm\S\2 ACS 2.0 cm LA dimension 4.1 cm LA/Ao 1.3 LVAd ap4 26.8 cm\S\2 LVLd ap4 8.9 cm EDV(MOD-sp4) 72.0 ml EDV(sp4-el) 68.8 ml LVAs ap4 17.4 cm\S\2 LVLs ap4 8.1 cm ESV(MOD-sp4) 36.1 ml ESV(sp4-el) 31.8 ml EF(MOD-sp4) 49.9 % EF(sp4-el) 53.8 % LVAd ap2 21.0 cm\S\2 LVLd ap2 8.9 cm EDV(MOD-sp2) 43.2 ml EDV(sp2-el) 42.4 ml LVAs ap2 13.9 cm\S\2 LVLs ap2 8.0 cm ESV(MOD-sp2) 21.3 ml ESV(sp2-el) 20.6 ml EF(MOD-sp2) 50.7 % EF(sp2-el) 51.4 % LVLd %diff -0.14 % EDV(MOD-bp) 55.7 ml LVLs %diff -1.18 % ESV(MOD-bp) 27.6 ml EF(MOD-bp) 50.4 % SV(MOD-sp4) 35.9 ml SI(MOD-sp4) 18.0 ml/m\S\2 SV(MOD-sp2) 21.9 ml SI(MOD-sp2) 11.0 ml/m\S\2 SV(MOD-bp) 28.1 ml SI(MOD-bp) 14.1 ml/m\S\2 SV(sp4-el) 37.0 ml SI(sp4-el) 18.6 ml/m\S\2 SV(sp2-el) 21.8 ml SI(sp2-el) 10.9 ml/m\S\2 Doppler Measurements and Calculations MV E max palomo 75.9 cm/sec MV dec time 0.31 sec Ao V2 max 100.0 cm/sec Ao max PG 4.0 mmHg Ao max PG (full) 0.47 mmHg AI max palomo 349.7 cm/sec AI max PG 49.8 mmHg AI dec slope 279.5 cm/sec\S\2 AI P1/2t 366.5 msec LV V1 max PG 3.5 mmHg LV V1 max 94.0 cm/sec MR max palomo 404.6 cm/sec MR max PG 65.5 mmHg MR mean aplomo 311.4 cm/sec MR mean PG 42.4 mmHg MR VTI 112.5 cm PA V2 max 79.3 cm/sec PA max PG 2.5 mmHg PI max palomo 91.2 cm/sec PI max PG 3.3 mmHg PI dec slope 101.7 cm/sec\S\2 PI P1/2t 262.6 msec TR max palomo 240.9 cm/sec
--- NOTE | 2017-05-09 18:21 | Progress Note ---
Medicine Progress Note Date & Time of Visit: May 09, 2017 at 18:21. Subjective Patient is complaining of feeling a bit lightheaded today; is worried that he will have to come back to the hospital if he were to go home. No overnight events noted. He had some cramping in his legs last night. States he was fine until he took his AM meds. Objective Last 8 Hrs Date Time Temp Pulse Resp B/P (MAP) Pulse Ox O2 Delivery O2 Flow Rate FiO2 05/09/17 16:00 Room Air 05/09/17 15:24 36.5 87 20 127/73 (91) 96 Room Air 05/09/17 12:00 Room Air 05/09/17 11:00 89 108/56 (73) 05/09/17 11:00 84 104/57 (73) 05/09/17 11:00 36.6 80 20 103/62 (76) 94 Room Air Physical Exam: GENERAL: Patient is in no acute distress. HEENT: No acute trauma, normocephalic, mucous membranes moist, no nasal congestion, no scleral icterus, conjunctivae clear. NECK: No stridor, trachea is midline. LUNGS: Clear to auscultation bilaterally, no wheeze, no rhonchi, breath sounds equal. HEART: + gallop, regular rate and rhythm. S1 and S2 auscultated ABDOMEN: Soft, nontender, bowel sounds positive, no hepatosplenomegaly EXTREMITIES: No cyanosis or edema, full range of motion of all the joints without pain or difficulty, no signs for acute trauma. NEUROLOGIC: Oriented x 3, no acute motor or sensory deficits, no focal weakness. SKIN: No rash, no jaundice, no diaphoresis. Laboratory Results: Last 24 Hours Test 05/09/17 05:41 White Blood Count 10.29 K/uL Red Blood Count 4.73 M/uL Hemoglobin 14.8 g/dL Hematocrit 43.5 % Mean Corpuscular Volume 92.0 fL Mean Corpuscular Hemoglobin 31.3 pg Mean Corpuscular Hemoglobin Concent 34.0 g/dl RDW Standard Deviation 43.4 fL RDW Coefficient of Variation 12.9 % Platelet Count 258 K/uL Mean Platelet Volume 10.3 fL Sodium Level 136 mmol/L Potassium Level 3.9 mmol/L Chloride Level 101 mmol/L Carbon Dioxide Level 32 mmol/L Anion Gap 4.0 mmol/L Blood Urea Nitrogen 32 mg/dl Creatinine 1.50 mg/dl Est Creatinine Clear Calc Drug Dose 42.4 ml/min Estimated GFR () 49.9 Estimated GFR (Non- 43.0 BUN/Creatinine Ratio 21.1 Random Glucose 92 mg/dl Calcium Level 8.6 mg/dl Magnesium Level 2.3 mg/dl Assessment & Plan ACUTE CHF EXACERBATION: -in setting of mild ischemic cardiomyopathy -on presentation was SOB, with bilateral LE swelling, JVD, bibasilar crackles on exam -CXR with mild cardiomegaly, congestion without overt pulmonary edema -BNP elevated to 3,273 -Given full dose aspirin, 20mg IV lasix dose in ED -was on IV lasix 40mg BID, stopped today and switched to PO; held for today since this AM was feeling dizzy and hypotensive -continue aspirin, beta luana, atorvastatin; coreg held for today per Cardio due to hypotension and dizziness -Recent echo with EF 45-49% -Cardio consulted, appreciate recs -TTE repeat: -CT negative for PE, no evidence of pneumonia TROPONIN ELEVATION: -likely from demand ischemia -No chest pain, no ischemic changes on EKG -Initial troponin of 0.077. Trended down -Monitor on telemetry HYPOTHYROIDISM: -TSH, free T4 normal -continue home dose levothyroxine RECENT PNEUMONIA and SINUSITIS: -completed a course of PO Levaquin as outpatient -No remaining clinical concern for infection but patient does complain of persistent drainage Current Inpatient Medications: Current Inpatient Medications Medications (Trade) Dose Ordered Sig/Angelique Route Start Time Stop Time Status Last Admin Dose Admin Heparin Sodium (Porcine) (Heparin Sq 5000 Unit/0.5ml) 5,000 unit Q8 SQ 05/06/17 23:00 06/05/17 22:59 05/09/17 13:58 5,000 UNIT Acetaminophen (Tylenol Tab) 650 mg Q4H PRN PO 05/06/17 19:45 06/05/17 19:44 Al Hydrox/Mg Hydrox/Simethicone (Maalox Max Susp) 15 ml Q4H PRN PO 05/06/17 19:45 06/05/17 19:44 Magnesium Hydroxide (Milk Of Magnesia Susp) 30 ml Q12H PRN PO 05/06/17 19:45 06/05/17 19:44 Nitroglycerin (Nitrostat Tab) 0.4 mg UD PRN SL 05/06/17 19:45 06/05/17 19:44 Aspirin (Ecotrin Tab) 81 mg QAM PO 05/07/17 09:00 06/06/17 08:59 05/09/17 08:07 81 MG Polyethylene (Miralax Powder Packet) 17 gm DAILY PRN PO 05/06/17 19:45 06/05/17 19:44 Atorvastatin Calcium (Lipitor Tab) 20 mg DAILY PO 05/07/17 09:00 06/06/17 08:59 05/09/17 08:07 20 MG Fluticasone Propionate (Flonase Nasal [place]) 1 sprays BID EDELMIRA 05/06/17 21:00 06/05/17 20:59 05/09/17 08:06 1 SPRAYS Levothyroxine Sodium (Synthroid Tab) 50 mcg DAILYBB PO 05/07/17 06:00 06/06/17 06:59 05/09/17 05:47 50 MCG Losartan Potassium (coZAAR TAB) 25 mg QPM PO 05/07/17 21:00 06/06/17 20:59 05/08/17 21:09 25 MG Ioversol (Optiray 320) 100 ml UD PRN IV 05/07/17 15:15 05/11/17 15:14 Furosemide (Lasix Tab) 20 mg BID17 PO 05/08/17 17:00 06/07/17 16:59 Future Hold 05/09/17 08:07 20 MG Enteral Nutritional Formula (Boost) 1 can DAILY PO 05/09/17 09:00 06/08/17 08:59 05/09/17 08:06 1 CAN
[2017-05-09] MEDS: LOSARTAN POTASSIUM 25 MG TAB PO SCH (20:50)
[2017-05-10 03:45] VITALS: BP 106/65; PULSE 86; TEMP 36.7; O2SAT 98
[2017-05-10 04:00] VITALS: O2SAT 98
[2017-05-10] MEDS: LEVOTHYROXINE 50 MCG TAB PO SCH (05:41)
[2017-05-10] MEDS: HEPARIN SOD 5000 UNIT/0.5 ML CARP SQ SCH (05:46)
[2017-05-10 07:05] LABS: HEMATOCRIT 44.1 % (42-52); MEAN CELL VOLUME 92.1 fL (80-100); MEAN CORPUSCULAR HEMOGLOBIN 31.3 pg (25-34); MEAN PLATELET VOLUME 9.8 fL (7.4-10.4); PLATELET COUNT 256 K/uL (130-400); RED CELL DISTRIBUTION WIDTH SD 43.7 fL (36.4-46.3); WHITE BLOOD COUNT 13.04 K/uL (4.8-10.8)
[2017-05-10 07:36] LABS: CALCIUM 8.8 mg/dl (8.5-10.1); CREATININE 1.37 mg/dl (0.60-1.40); POTASSIUM 4.2 mmol/L (3.5-5.1)
[2017-05-10 07:37] VITALS: BP 99/62; PULSE 87; TEMP 37; O2SAT 95
[2017-05-10] MEDS: BOOST VANILLA PO SCH (08:23)
[2017-05-10] MEDS: ASPIRIN 81 MG ECTAB PO SCH (08:23)
[2017-05-10] MEDS: FLUTICASONE PROPIONATE NA SPR 16 GM BTL NAE SCH (08:23)
[2017-05-10] MEDS: ATORVASTATIN 20 MG TAB PO SCH (08:23)
--- NOTE | 2017-05-10 10:16 | PROGRESS NOTE ---
DATE: 05/10/2017 FOLLOWUP VISIT SUBJECTIVE: The patient is an 82-year-old admitted with mild congestive heart failure and symptoms of dizziness and wooziness while at home. His medications have been adjusted. We stopped his carvedilol yesterday. He is feeling much improved and he has had no further symptoms of dizziness, lightheadedness or wheeziness. He feels well enough and wants to go home today. OBJECTIVE: GENERAL: He is alert and oriented in no acute distress. VITAL SIGNS: Blood pressure is 100/60, pulse is regular at 87 beats per minute. He is afebrile. HEENT: Normocephalic. Pupils are equal and reactive to light. Extraocular muscles are intact bilaterally. NECK: The neck veins are flat. Carotids have good upstrokes bilaterally without bruits. Thyroid is nonpalpable. RESPIRATORY: Breath sounds equal bilaterally and clear to auscultation. CARDIOVASCULAR: Heart has a regular rhythm. Normal S1, S2. No S3, S4. No cardiac rubs or murmurs. GASTROINTESTINAL: Abdomen is soft, nontender without organomegaly. EXTREMITIES: Free of edema, digit clubbing, or cyanosis. NEUROLOGIC: Grossly intact. SKIN: Warm to touch. LYMPH NODES: Negative to palpation. IMPRESSION: 1. Mild congestive heart failure. 2. Mild systolic dysfunction. RECOMMENDATIONS: I believe the patient may be discharged to outpatient followup. He has no new complaints today. He is on a good and stable group of medications. I will arrange followup.
--- NOTE | 2017-05-10 10:27 | Discharge Instructions ---
Discharge Instructions Date of Service May 10, 2017. Admission Reason for Admission: Elevated Troponin, Sob On Exertion Discharge Discharge Diagnosis / Problem: Dyspnea, elevated troponin, dizziness/ lightheadedness Discharge Goals Goal(s): Therapeutic intervention Activity Recommendations Activity Limitations: as noted below Lifting Limitations: gradually increase as tolerated Exercise/Sports Limitations: gradually increase as tolerated . Instructions / Follow-Up Instructions / Follow-Up Please see Dr. Hawthorne on May 12 at 11 AM for hospital follow up Please follow up with Cardiology as scheduled Please follow up with ENT (Otolaryngology) June 10 at 8 AM with Shayy Mitchell Current Hospital Diet Patient's current hospital diet: Low Sodium Diet (2gm Na) Discharge Diet Recommended Diet: AHA Diet (Heart Healthy) Pending Studies Studies pending at discharge: no Medical Emergencies . Who to Call and When: Medical Emergencies: If at any time you feel your situation is an emergency, please call 911 immediately. . Non-Emergent Contact Non-Emergency issues call your: Primary Care Provider, Forest Manager . . "Provider Documentation" section prepared by Sakshi Yanez. . VTE Core Measure Inpt VTE Proph given/why not?: Unfractionated heparin SQ
--- NOTE | 2017-05-10 10:30 | Discharge Summary ---
Discharge Summary Date of Service May 10, 2017. Discharge Summary Admission Date: May 06, 2017 at 19:35 Discharge Date: May 10, 2017 Medication Reconciliation Continued Medications: Aspirin (Aspir-81) 81 Mg Tab 81 MG PO DAILY, TAB Atorvastatin (Lipitor) 20 Mg Tab 20 MG PO DAILY, TAB Azelastine HCl (Azelastine Hydrochloride) 0.1 % Spr 1 SPRAY EDELMIRA BID Carvedilol (Coreg) 3.125 Mg Tab 3.125 MG PO BID, TAB Fluticasone Propionate (Nasal) (Flonase Allergy Relief) 50 Mcg/Act Spr 1 SPRAYS EDELMIRA BID Furosemide (Lasix) 20 Mg Tab 20 MG PO BID17, TAB Levofloxacin (Levaquin) 750 Mg Tab 750 MG PO DAILY for 10 Days, TAB STARTED 04/28/17 Levothyroxine Sodium (Synthroid) 50 Mcg Tab 50 MCG PO DAILY, TAB Admission Information HPI (per Admitting provider): This is an 82yo M with a PMH of 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 Patient was seen in the clinic in March for sinusitis and SOB. Was started on Augmentin as well as lasix for SOB/bilateral lower extremity pitting edema. In April, patient was seen in clinic for continued SOB and was found to have bilateral lobe PNA and was given PO Levaquin. 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 Despite having intermittent SOB over the past 2 months, patient continued trying to exercise regularly. Over the last 2 days, however, patient noticed a significant increase in SOB, feeling unable to catch his breath walking from room to room in his home. Also endorses poor PO intake 2/2 reduced appetite. Denies any fever, chills, productive cough, sore throat, lightheadedness, palpitations, chest pain, abd pain, nausea, vomiting, dysuria, diarrhea or constipation. States that his legs were much more swollen earlier this week but has since increased his PO lasix dose to 40mg daily and swelling has decreased. Denies any history of DVTs/PEs. Has not increased sodium or fluid intake. Physical Exam (per Admitting): General Appearance: WD/WN, no apparent distress Head: normocephalic, atraumatic Eyes: normal inspection, PERRL, sclerae normal ENT: normal ENT inspection, hearing grossly normal, pharynx normal (moist mucous membranes ) Neck: supple, thyroid normal, trachea midline, + JVD Respiratory/Chest: chest non-tender, lungs clear, no respiratory distress, no accessory muscle use, + crackles (bibasilar crackles ) Cardiovascular: regular rate, rhythm, no murmur, normal peripheral pulses Abdomen/GI: non tender, soft, no organomegaly Back: normal inspection Extremities/Musculoskelatal: normal inspection, no calf tenderness, + pertinent finding (1+ pitting edema bilaterally ) Neurologic/Psych: no motor/sensory deficits, alert, normal mood/affect, oriented x 3 Skin: normal color, warm/dry, no rash Hospital Course ACUTE CHF EXACERBATION: -in setting of mild ischemic cardiomyopathy -on presentation was SOB, with bilateral LE swelling, JVD, bibasilar crackles on exam -CXR with mild cardiomegaly, congestion without overt pulmonary edema -BNP elevated to 3,273 -Given full dose aspirin, 20mg IV lasix dose in ED -was on IV lasix 40mg BID, stopped today and switched to PO; held for today since this AM was feeling dizzy and hypotensive -continue aspirin, beta luana, atorvastatin; coreg held for today per Cardio due to hypotension and dizziness -Recent echo with EF 45-49% -Cardio consulted, appreciate recs -TTE repeat: -CT negative for PE, no evidence of pneumonia TROPONIN ELEVATION: -likely from demand ischemia -No chest pain, no ischemic changes on EKG -Initial troponin of 0.077. Trended down -Monitor on telemetry HYPOTHYROIDISM: -TSH, free T4 normal -continue home dose levothyroxine RECENT PNEUMONIA and SINUSITIS: -completed a course of PO Levaquin as outpatient -No remaining clinical concern for infection but patient does complain of persistent drainage Total time spent on discharge = This includes examination of the patient, discharge planning, medication reconciliation, and communication with other providers. Discharge Instructions 05/10/17 06:53 05/10/17 06:53 Test 05/10/17 06:53 Red Blood Count 4.79 M/uL (4.7-6.1) Mean Corpuscular Volume 92.1 fL (80-100) Mean Corpuscular Hemoglobin 31.3 pg (25-34) Mean Corpuscular Hemoglobin Concent 34.0 g/dl (32-36) RDW Standard Deviation 43.7 fL (36.4-46.3) RDW Coefficient of Variation 13.0 % (11.5-14.5) Mean Platelet Volume 9.8 fL (7.4-10.4) Anion Gap 8.0 mmol/L (3-11) Est Creatinine Clear Calc Drug Dose 46.1 ml/min Estimated GFR () 55.7 Estimated GFR (Non- 48.0 BUN/Creatinine Ratio 19.2 (10-20) Calcium Level 8.8 mg/dl (8.5-10.1) Magnesium Level 2.3 mg/dl (1.8-2.4)
[2017-05-10 11:06] VITALS: BP 99/62; PULSE 87; TEMP 37; O2SAT 95
[2017-05-10 11:22] VITALS: BP 117/67; PULSE 88; TEMP 36.5; O2SAT 95
== END 2017-05-10 12:20 | disposition home or self-care (01) | DRG 292 ==
LOC: C.EDB 15:43 → C.2T 19:35 → ENRESERV 20:01 → C.2T 05-08 13:55
PROVIDERS: ADMIT Hospitalist; ATTEND Internal Medicine
DX: I50.23 Acute on chronic systolic (congestive) heart failure (principal); I24.8 Other forms of acute ischemic heart disease; I25.5 Ischemic cardiomyopathy; I25.2 Old myocardial infarction; J32.9 Chronic sinusitis, unspecified; E03.9 Hypothyroidism, unspecified; Z51.81 Encounter for therapeutic drug level monitoring; Z79.899 Other long term (current) drug therapy; Z79.82 Long term (current) use of aspirin; Z87.01 Personal history of pneumonia (recurrent); Z82.49 Family history of ischemic heart disease and other diseases of the circulatory system; Z80.0 Family history of malignant neoplasm of digestive organs

== ENCOUNTER 2020-10-25 15:45 | Inpatient (IN) ==
--- NOTE | 2020-10-25 16:08 | Emergency Department Note ---
Impression & Plan Congestive heart failure, SOB (shortness of breath), Bilateral lower extremity edema, Elevated troponin ED Provider Note INFORMANT: Patient ED PROVIDER(S): Ismael Blanco MD CHIEF COMPLAINT: Shortness of breath PLAN: Disposition: Admitted Condition: Good Outpatient prescription management: none Referral: None MEDICAL DECISION MAKING: Patient presented secondary to shortness of breath. His physical examination was concerning for possible CHF. Chest x-ray was performed and revealed findings concerning for CHF. Patient's blood work and ECG revealed some mild tachycardia, and unremarkable CBC and elevated BNP and troponin. The patient was reassessed. He denied any chest pain. His ECG did not show any obvious ischemia. He does have inferior and anterior Q waves. The patient was given a dose of IV Lasix. Further management in the hospital was deemed appropriate. Consultation was made with the [facility]. Patient will be admitted by Dr. Vargas for further management. Triage Nursing notes reviewed and agree them. Vital Signs: reviewed and remarkable for no significant abnormalities Differential diagnosis: CHF, Infection, dehydration, metabolic abnormality, hypo/hyperglycemia, electrolyte disturbance, anemia, hypoxia, cardiac sources, intracerebral event, toxicologic, neurologic, as well as other pathologies. Diagnostics interpreted by me: ECG: Rate:112 Rhythm: sinus tach [place]:LAD QRS:RBBB ST segements:No elevation or depression Other:No PACs or PVCs, inf and ant Q waves Cardiac Monitoring:Cardiac monitoring ordered by me: The patient was placed on continuous cardiac monitoring and observed. It revealed a ST rhythm at 108 beats per minute without ectopy or evidence of dysrhythmia. Imaging studies: Chest x-ray shows cardiomegaly, pleural effusion, and increased markings kyle rning for CHF. HPI: The patient is a 85 year old male who presents to the Emergency Room with complaints of SOB. This started a few weeks ago and is worsening. The patient also notes the following associated symptoms, weakness, leg swelling, lack of energy. Today the weakness was significant and he called EMS. The patient has been trying lasix for relieving factors. Current pain is rated as 0/10. Pt denies LOC, headache, fevers, chills, diaphoresis, visual changes, neck pain, chest pain, nausea, vomiting, abdominal pain, back pain, melena, hematochezia, urinary symptoms, numbness, lymphadenopathy, rash, or other complaints. ROS: See above HPI for pertinent positives & negatives. A total of 10 systems reviewed and were otherwise negative. PAST MEDICAL HISTORY:See Below , CM PAST SURGICAL HISTORY:See Below, FAMILY HISTORY:See Below SOCIAL HISTORY:See Below, retired HOME MEDICATIONS:See Below ALLERGIES:See Below VITALS:See Below PHYSICAL EXAMINATION: GENERAL: Awake, tired-appearing, in no distress HENT: Normocephalic, atraumatic. Oropharynx unremarkable. EYES: Normal conjunctiva. Sclera non-icteric. NECK: Inspection normal. Non-tender. Supple. No nuchal rigidity. FROM. No masses. RESPIRATORY: Clear to auscultation. No wheezes. No rales. Normal respiratory effort. CARDIAC: Borderline tachycardic rate. Normal rhythm. No murmurs. No rubs. Extremities warm and well perfused. Pulses equal. + JVD. GI: Soft, non-distended. No tenderness to palpation. No rebound or guarding. No masses. RECTAL: Deferred. MUSCULOSKELETAL: Atraumatic. Chest examination reveals no tenderness. The back is symmetrical on inspection without obvious abnormality. There is no CVA tenderness to palpation. No joint edema. LOWER EXTREMITIES: Calves are equal size bilaterally and non-tender. +2 edema. Chronic venous discoloration. NEURO: Normal sensorium. No sensory or motor deficits noted. SKIN: No rash or jaundice noted. CRITICAL CARE I have personally spent greater than 31 minutes of critical care time in the direct management of this patient. This includes bedside care, interpretation of diagnostic studies, and testing, discussion with consultants, patient, and family members, and other required patient management activities. These minutes are in excess of all separately billable procedures. Ismael Blanco MD Past Med/Surg History Social History (System 10/02/19 @ 14:39 by Pearl Alegria) Smoking Status: Never smoker Feels Safe at Home: Yes Allergies Allergies Allergy/AdvReac Type Severity Reaction Status Date / Time Sulfa (Sulfonamide Allergy Unknown RASH Unverified 10/25/20 17:37 Antibiotics) Home Meds Home Medications Medication Instructions Recorded Confirmed aspirin 81 mg tablet,delayed 81 mg PO DAILY 10/25/20 10/25/20 release atorvastatin 20 mg tablet 20 mg PO DAILY 10/25/20 10/25/20 azelastine 137 mcg (0.1 %) nasal 1 - 2 spray INTRANASAL BID 10/25/20 10/25/20 spray aerosol carvedilol 3.125 mg tablet 3.125 mg PO BID 10/25/20 10/25/20 fluticasone propionate 50 1 - 2 spray INTRANASAL Q12H 10/25/20 10/25/20 mcg/actuation nasal spray,suspension (Flonase Allergy Relief) furosemide 20 mg tablet 40 mg PO DAILY 10/25/20 10/25/20 levothyroxine 50 mcg tablet 50 mcg PO DAILYBB 10/25/20 10/25/20 omeprazole 20 mg tablet,delayed 20 mg PO DAILY 10/25/20 10/25/20 release polyethylene glycol 3350 17 17 g PO DIRECTED PRN 10/25/20 10/25/20 gram/dose oral powder (Miralax) Results & Data (ED) Vital Signs Vital Signs - 24 hr 10/25/20 15:49 10/25/20 15:54 10/25/20 16:19 Temperature 36.6 C Temperature Source Oral Pulse Rate 112 H 112 H Pulse Rate from SpO2 Sensor 115 H Respiratory Rate 27 H 23 Respiratory Effort / Characteristics Non-Labored Spontaneous Respiratory Depth Normal Blood Pressure 119/76 119/76 Blood Pressure Mean 90 90 Blood Pressure Position Sitting Pulse Oximetry 94 96 96 Oxygen Delivery Method Room Air Room Air Sepsis Recent Fever Within 48 Hours No Sepsis New/Unexplained Change in Mental Status No Sepsis Action Taken by Nursing Physician Notified 10/25/20 16:53 10/25/20 17:00 10/25/20 17:30 Temperature Temperature Source Pulse Rate 111 H 106 H 110 H Pulse Rate from SpO2 Sensor 112 H 113 H 114 H Respiratory Rate 35 H 34 H 32 H Respiratory Effort / Characteristics Respiratory Depth Blood Pressure 139/87 132/84 140/85 Blood Pressure Mean 104 100 103 Blood Pressure Position Pulse Oximetry 90 95 90 Oxygen Delivery Method Sepsis Recent Fever Within 48 Hours Sepsis New/Unexplained Change in Mental Status Sepsis Action Taken by Nursing 10/25/20 18:00 10/25/20 18:30 Temperature Temperature Source Pulse Rate 111 H 111 H Pulse Rate from SpO2 Sensor 112 H 117 H Respiratory Rate 25 H 23 Respiratory Effort / Characteristics Respiratory Depth Blood Pressure 127/95 123/95 Blood Pressure Mean 105 104 Blood Pressure Position Pulse Oximetry 90 95 Oxygen Delivery Method Sepsis Recent Fever Within 48 Hours Sepsis New/Unexplained Change in Mental Status Sepsis Action Taken by Nursing Laboratory Data Result diagrams: 10/25/20 16:00 10/25/20 16:00 Lab Results 10/25/20 10/25/20 10/25/20 Range/Units 16:00 16:00 16:40 WBC 7.54 (4.8-10.8) K/uL RBC 5.01 (4.7-6.1) M/uL Hgb 16.2 (14.0-18.0) g/dL Hct 48.2 (42-52) % MCV 96.2 (80-100) fL MCH 32.3 (25-34) pg MCHC 33.6 (32-36) g/dL RDW Std Deviation 53.2 H (36.4-46.3) fL RDW Coeff of Lesley 15.2 H (11.5-14.5) % Plt Count 177 (130-400) K/uL MPV 10.7 H (7.4-10.4) fL Immature Gran % (Auto) 0.1 % Neut % (Auto) 64.5 % Lymph % (Auto) 18.8 % [place] % (Auto) 15.0 % Eos % (Auto) 1.3 % Baso % (Auto) 0.3 % Neut # (Auto) 4.86 (1.4-6.5) K/uL Lymph # (Auto) 1.42 (1.2-3.4) K/uL [place] # (Auto) 1.13 H (0.11-0.59) K/uL Eos # (Auto) 0.10 (0-0.5) K/uL Baso # (Auto) 0.02 (0-0.2) K/uL Immature Gran # (Auto) 0.01 (0.00-0.02) K/uL Sodium 139 (136-145) mmol/L Potassium 4.2 (3.5-5.1) mmol/L Chloride 111 H (98-107) mmol/L Carbon Dioxide 23 (21-32) mmol/L Anion Gap 5.0 (3-11) BUN 51 H (7-18) mg/dl Creatinine 1.59 H (0.6-1.4) mg/dl Est Cr Clr Drug Dosing 38.5 ml/min Est GFR ( Amer) 45.5 ml/min Est GFR (Non-Af Amer) 39.3 ml/min BUN/Creatinine Ratio 32.1 H (10-20) Glucose 108 H (70-99) mg/dl Calcium 9.2 (8.5-10.1) mg/dl Magnesium 2.4 (1.8-2.4) mg/dl Total Bilirubin 2.8 H (0.2-1) mg/dl AST 29 (15-37) U/L ALT 25 (12-78) U/L Alkaline Phosphatase 94 (45-117) U/L Troponin I 0.056 H* (0-0.045) ng/ml NT-Pro-B Natriuret Pep 9232 H (0-1800) pg/ml Total Protein 7.3 (6.4-8.2) gm/dl Albumin 3.4 (3.4-5.0) gm/dl Globulin 3.9 (2.5-4.0) gm/dl Albumin/Globulin Ratio 0.9 (0.9-2) COVID-19 Eval Order Covid19 at [facility] SARS-CoV-2 (PCR) (Negative) 10/25/20 Range/Units 16:40 WBC (4.8-10.8) K/uL RBC (4.7-6.1) M/uL Hgb (14.0-18.0) g/dL Hct (42-52) % MCV (80-100) fL MCH (25-34) pg MCHC (32-36) g/dL RDW Std Deviation (36.4-46.3) fL RDW Coeff of Lesley (11.5-14.5) % Plt Count (130-400) K/uL MPV (7.4-10.4) fL Immature Gran % (Auto) % Neut % (Auto) % Lymph % (Auto) % [place] % (Auto) % Eos % (Auto) % Baso % (Auto) % Neut # (Auto) (1.4-6.5) K/uL Lymph # (Auto) (1.2-3.4) K/uL [place] # (Auto) (0.11-0.59) K/uL Eos # (Auto) (0-0.5) K/uL Baso # (Auto) (0-0.2) K/uL Immature Gran # (Auto) (0.00-0.02) K/uL Sodium (136-145) mmol/L Potassium (3.5-5.1) mmol/L Chloride (98-107) mmol/L Carbon Dioxide (21-32) mmol/L Anion Gap (3-11) BUN (7-18) mg/dl Creatinine (0.6-1.4) mg/dl Est Cr Clr Drug Dosing ml/min Est GFR ( Amer) ml/min Est GFR (Non-Af Amer) ml/min BUN/Creatinine Ratio (10-20) Glucose (70-99) mg/dl Calcium (8.5-10.1) mg/dl Magnesium (1.8-2.4) mg/dl Total Bilirubin (0.2-1) mg/dl AST (15-37) U/L ALT (12-78) U/L Alkaline Phosphatase (45-117) U/L Troponin I (0-0.045) ng/ml NT-Pro-B Natriuret Pep (0-1800) pg/ml Total Protein (6.4-8.2) gm/dl Albumin (3.4-5.0) gm/dl Globulin (2.5-4.0) gm/dl Albumin/Globulin Ratio (0.9-2) COVID-19 Eval Order SARS-CoV-2 (PCR) NEGATIVE (Negative) Administered Medications Discontinued Medications Furosemide (Furosemide 40 Mg/4 Ml Vial) 40 mg IV NOW STA Stop: 10/25/20 17:08 Last Admin: 10/25/20 17:58 Dose: 40 mg Documented by: [id number] Imaging Data Radiologist's Impression: Chest X-Ray 10/25/20 16:00 XR chest 1V portable HISTORY: Dyspnea COMPARISON: Chest 05/06/2017. FINDINGS: No pneumothorax. The cardiac silhouette is moderately enlarged. This has progressed in the interval. There are small bilateral pleural effusions and diffuse interstitial/vascular thickening consistent with pulmonary edema. IMPRESSION: Interval progression of the cardiomegaly, small bilateral pleural effusions, and mild interstitial pulmonary edema. ACT 112: Negative or not required by law. Electronically signed by: Mikel Whitfield M.D. 10/25/2020 4:24 PM Discharge Plan Visit Data Chief Complaint: Shortness of Breath/Dyspnea Stated Complaint: Increased SOB/Leg Swelling ED Provider: Ismael Blanco Discharge Problem: Congestive heart failure, SOB (shortness of breath), Bilateral lower extremity edema, Elevated troponin Forms Stand Alone Forms: My [facility] Prescriptions Prescriptions: No Action atorvastatin 20 mg tablet 20 mg PO DAILY RF: 0 aspirin 81 mg Tablet,Delayed Release (Dr/Ec) 81 mg PO DAILY RF: 0 carvedilol 3.125 mg tablet 3.125 mg PO BID RF: 0 levothyroxine 50 mcg Tablet 50 mcg PO DAILYBB RF: 0 furosemide 20 mg tablet 40 mg PO DAILY RF: 0 azelastine 137 mcg (0.1 %) Aerosol,[place] 1 - 2 spray INTRANASAL BID RF: 0 polyethylene glycol 3350 [Miralax] 17 gram/dose Powder 17 g PO DIRECTED PRN (Reason: Constipation) RF: 0 fluticasone propionate [Flonase Allergy Relief] 50 mcg/actuation [place],Suspension 1 - 2 spray INTRANASAL Q12H RF: 0 omeprazole 20 mg Tablet,Delayed Release (Dr/Ec) 20 mg PO DAILY RF: 0 Referrals Referrals: Román Hawthorne DO [Primary Care Provider] -
[2020-10-25 16:11] LABS: Basophils # (auto) 0.02 K/uL (0-0.2); Basophils % (auto) 0.3 %; Eosinophils % (auto) 1.3 %; Hematocrit (blood only) 48.2 % (42-52); Hemoglobin 16.2 g/dL (14.0-18.0); Immature Granulocytes # (auto) 0.01 K/uL (0.00-0.02); Immature Granulocytes % (auto) 0.1 %; Lymphocytes # (auto) 1.42 K/uL (1.2-3.4); Lymphocytes % (auto) 18.8 %; Mean Corpuscular Hemoglobin 32.3 pg (25-34); Mean Corpuscular Hgb Conc 33.6 g/dL (32-36); Mean Corpuscular Volume 96.2 fL (80-100); Mean Platelet Volume 10.7 fL (7.4-10.4); Monocytes # (auto) 1.13 K/uL (0.11-0.59); Neutrophils # (auto) 4.86 K/uL (1.4-6.5); Neutrophils % (auto) 64.5 %; Platelet Count 177 K/uL (130-400); RDW Coefficient of Variation 15.2 % (11.5-14.5); RDW Standard Deviation 53.2 fL (36.4-46.3); Red Blood Count 5.01 M/uL (4.7-6.1); White Blood Count 7.54 K/uL (4.8-10.8)
--- NOTE | 2020-10-25 16:25 | XRay Report ---
XR chest 1V portable HISTORY: Dyspnea COMPARISON: Chest 05/06/2017. FINDINGS: No pneumothorax. The cardiac silhouette is moderately enlarged. This has progressed in the interval. There are small bilateral pleural effusions and diffuse interstitial/vascular thickening co nsistent with pulmonary edema. IMPRESSION: Interval progression of the cardiomegaly, small bilateral pleural effusions, and mild interstitial pu lmonary edema. ACT 112: Negative or not required by law. Electronically signed by: Mikel Whitfield M.D. 10/25/2020 4:24 PM
[2020-10-25 16:34] LABS: Albumin Level 3.4 gm/dl (3.4-5.0); BUN Creatinine Ratio 32.1 (10-20); Calcium 9.2 mg/dl (8.5-10.1); Creatinine Clr Calc Pharmacy 38.5 ml/min; Est GFR (African American) 45.5 ml/min; Est GFR (Non-African American) 39.3 ml/min; Magnesium 2.4 mg/dl (1.8-2.4); Potassium 4.2 mmol/L (3.5-5.1)
[2020-10-25 16:45] LABS: Albumin Globulin Ratio 0.9 (0.9-2); Bilirubin,Total 2.8 mg/dl (0.2-1); Globulin 3.9 gm/dl (2.5-4.0); Total Protein 7.3 gm/dl (6.4-8.2); Troponin I 0.056 ng/ml (0-0.045)
[2020-10-25] MEDS ORDERED: FUROSEMIDE 40 MG/4 ML VIAL IV STA (17:07)
--- NOTE | 2020-10-25 19:57 | History & Physical Report ---
Date of Service October 25, 2020 Assessment & Plan (1) Acute on chronic combined systolic and diastolic heart failure: Plan: Pt is 85 y/o M with PMH CAD, ischemic cardiomyopathy, EF: 36% on 09/24/2020, grade III diastolic dysfunction, CKD III, hypothyroidism presented to ER with complaint of increased lower extremity edema, SOB x1-2 weeks. CXR:Interval progression of the cardiomegaly, small bilateral pleural effusions, and mild interstitial pulmonary edema. BNP: 9232 In ER given Lasix 40 mg IV Monitor I's and O's, daily weights, low-sodium diet Lasix 40 mg IV twice daily Recent echo from 09/24/2020: EF: 36%, grade III diastolic dysfunction (EF had decreased from prior echo with EF 45-49%) Will hold on additional echo at this time Cardiology consult CBC, BMP in a.m. (2) Generalized weakness: Plan: Complains of generalized weakness past week UA unremarkable No focal weakness on exam PT/OT eval (3) CAD (coronary artery disease): (4) Elevated troponin: Plan: History CAD/[place] Troponin: 0.056. History troponin elevation in past 0.07 Trend troponin Continue atorvastatin, carvedilol, aspirin EKG in a.m. (5) CKD (chronic kidney disease), stage III: Plan: Cr: 1.5. Baseline~1.3 Monitor renal functions, avoid nephrotoxic agents when possible (6) Hypothyroidism: Plan: Continue levothyroxine DVT Prophylaxis Heparin SQ Full Code as per discussion with pt Follows with Dr Hawthorne for routine care Pt was seen and care coordinated with Dr Vargas. See addendum History of Present Illness Chief Complaint: Leg edema Primary Care Provider: Román Hawthorne DO Pt is 85 y/o M with PMH CAD, ischemic cardiomyopathy, EF: 36% on 09/24/2020, grade III diastolic dysfunction, CKD III, hypothyroidism presented to ER with complaint of increased lower extremity edema x1-2 weeks. Patient also reports increased shortness of breath, orthopnea. He also reports increased generalized weakness and having difficulty ambulating recently. denies fall or trauma. In 09/2020 patient's Lasix was increased by cardiology to 40 mg a day. Patient rep orts med compliance and following low-sodium diet. He reports drinking 4 glasses of water, 1 cup coffee and 2 to 3 cups of tea daily. Denies fever/chills, diaphoresis, N/V/D/C, BONNER, dizziness, syncope, vision changes, neck pain, CP, palpitations, cough, sore throat, choking, otalgia, rhinorrhea, abdominal pain, paresthesias, rashes, urinary symptoms. Allergies Allergy/AdvReac Type Severity Reaction Status Date / Time Sulfa (Sulfonamide Allergy Unknown RASH Unverified 10/25/20 17:37 Antibiotics) Home Medications Medication Instructions Recorded Confirmed Type aspirin 81 mg tablet,delayed 81 mg PO DAILY 10/25/20 10/25/20 History release atorvastatin 20 mg tablet 20 mg PO DAILY 10/25/20 10/25/20 History azelastine 137 mcg (0.1 %) nasal 1 - 2 spray INTRANASAL BID 10/25/20 10/25/20 History spray aerosol carvedilol 3.125 mg tablet 3.125 mg PO BID 10/25/20 10/25/20 History fluticasone propionate 50 1 - 2 spray INTRANASAL Q12H 10/25/20 10/25/20 History mcg/actuation nasal spray,suspension (Flonase Allergy Relief) furosemide 20 mg tablet 40 mg PO DAILY 10/25/20 10/25/20 History levothyroxine 50 mcg tablet 50 mcg PO DAILYBB 10/25/20 10/25/20 History omeprazole 20 mg tablet,delayed 20 mg PO DAILY 10/25/20 10/25/20 History release polyethylene glycol 3350 17 17 g PO DIRECTED PRN 10/25/20 10/25/20 History gram/dose oral powder (Miralax) Past Med/Surg History Medical History (Updated 10/25/20 @ 21:51 by Maryse Leon PA-C) CAD (coronary artery disease) CKD (chronic kidney disease), stage III Diastolic CHF, chronic Hypothyroidism Ischemic cardiomyopathy Surgical History (Updated 10/25/20 @ 21:38 by Maryse Leon PA-C) History of cataract surgery History of inguinal hernia repair History of nasal septoplasty Family History (Updated 10/25/20 @ 21:38 by Maryse Leon PA-C) Father Cancer Social History (Updated 10/25/20 @ 21:38 by Maryse Leon PA-C) Smoking Status: Never smoker Hx Alcohol Use: Yes Alcohol Intake Frequency: Monthly or Less Hx Substance Use: No Preferred Language: Bruneian Communication Ability: Effective Materials Analyst Required: No Beliefs That Will Affect Care: None Current Living Situation: Alone Other Information That Helps Us Care for You: No Feels Safe at Home: Yes Assistive Devices: Glasses Review of Systems Review of Systems: All systems reviewed & are unremarkable except as noted in HPI & below Physical Exam Physical Exam: General: no distress, WDWN Head: normocephalic, atraumatic Eyes: PERRL, EOM's intact, conjunctiva non-injected, anicteric ENT: normal inspection external ears, nose, mucous membranes moist Neck: supple, trachea midline Lungs: no respiratory distress, +rales bases bilaterally CV: tachycardia, rate 108, regular rhythm, 2-3+ pretibial edema Abd: normal BS, soft, non-tender Ext: no cyanosis, no calf tenderness Neuro: A&O x 3, no focal deficits noted, normal affect Skin: warm, dry Results & Data Results & Data ([facility]) Vital Signs (Past 12 Hours) Vital Signs Temp Pulse Resp BP Pulse Ox 10/25/20 18:30 111 H 23 123/95 95 10/25/20 18:00 111 H 25 H 127/95 90 10/25/20 17:30 110 H 32 H 140/85 90 10/25/20 17:00 106 H 34 H 132/84 95 10/25/20 16:53 111 H 35 H 139/87 90 10/25/20 16:19 96 10/25/20 15:54 36.6 C 112 H 23 119/76 96 10/25/20 15:49 112 H 27 H 119/76 94 Laboratory Results Short CBC 10/25/20 Range/Units 16:00 WBC 7.54 (4.8-10.8) K/uL Hgb 16.2 (14.0-18.0) g/dL Hct 48.2 (42-52) % Plt Count 177 (130-400) K/uL BMP 10/25/20 16:00 Sodium 139 Potassium 4.2 Chloride 111 H Carbon Dioxide 23 BUN 51 H Creatinine 1.59 H Glucose 108 H Calcium 9.2 Cardiac Enzymes 10/25/20 Range/Units 16:00 Troponin I 0.056 H* (0-0.045) ng/ml Liver Function 10/25/20 Range/Units 16:00 Total Bilirubin 2.8 H (0.2-1) mg/dl AST 29 (15-37) U/L ALT 25 (12-78) U/L Alkaline Phosphatase 94 (45-117) U/L Albumin 3.4 (3.4-5.0) gm/dl Urine 10/25/20 Range/Units 20:00 Urine Color Dark Yellow Urine Appearance Clear (Clear) Urine pH 5.0 (4.5-7.5) Ur Specific [place] 1.016 (1.000-1.030) Urine Protein 1+ H (Negative) Urine Glucose (UA) Negative (Negative) Diagnostic Findings Chest X-Ray 10/25/20 16:00 XR chest 1V portable HISTORY: Dyspnea COMPARISON: Chest 05/06/2017. FINDINGS: No pneumothorax. The cardiac silhouette is moderately enlarged. This has progressed in the interval. There are small bilateral pleural effusions and diffuse interstitial/vascular thickening consistent with pulmonary edema. IMPRESSION: Interval progression of the cardiomegaly, small bilateral pleural effusions, and mild interstitial pulmonary edema. ACT 112: Negative or not required by law. Electronically signed by: Mikel Whitfield M.D. 10/25/2020 4:24 PM ECG Rate (beats per minute): 112 Rhythm: sinus tachycardia Findings: + PVC, + Q waves (Inferior) and + RBBB Supervising Physician Co-Signing Physician Notes I have seen and examined the patient and have discussed the case with the dipak valencia above. I agree with the assessment and plan as stated. 85 yo M with progressive leg swelling and dyspnea on exertion. CXR reveals fluid overload and BNP elevated. Physical exam as above except I observed only 1+ edema bilaterally and lower extremity erythroderma with a pattern that may include leukocytoclastic vasculitis in the differential as patient states this is new for him about one month ago. May consider outpatient followup with dermatology for skin biopsy and PCP followup to see if this improves or changes with time. For now, agree with treatment plan as outlined above. Appreciate cardiology input. DO Sam
[2020-10-25 20:39] LABS: Appearance Urine Clear (Clear); Bacteria Urine Automated Negative (Negative); Bilirubin Urine Negative (Negative); Blood Urine Negative (Negative); Color Urine Dark Yellow; Epithelial Cell Urine Auto 0-5 /lpf (0-5); Glucose Urine UA Negative (Negative); Ketones Urine Negative (Negative); Leukocyte Esterase Urine Negative (Negative); Nitrite Urine Negative (Negative); Protein Urine 1+ (Negative); RBC Urine Automated 0-4 /hpf (0-4); Specific Gravity Urine 1.016 (1.000-1.030); Urobilinogen Urine Negative (Negative)
[2020-10-25] MEDS ORDERED: POLYETHYLENE (MIRALAX) 17 GM PACK PO PRN ×2 (21:29)
[2020-10-25] MEDS ORDERED: carvediloL 3.125 MG TAB PO SCH (21:29)
[2020-10-25] MEDS ORDERED: ACETAMINOPHEN 325 MG TAB PO PRN (21:29)
[2020-10-25] MEDS: HEPARIN SOD 5,000 UNIT/0.5 ML VIAL SQ SCH (22:41)
[2020-10-26] MEDS ORDERED: carvediloL 3.125 MG TAB PO SCH (03:35)
[2020-10-26 04:12] LABS: Basophils # (auto) 0.02 K/uL (0-0.2); Basophils % (auto) 0.2 %; Eosinophils # (auto) 0.18 K/uL (0-0.5); Eosinophils % (auto) 1.9 %; Hematocrit (blood only) 48.9 % (42-52); Hemoglobin 16.3 g/dL (14.0-18.0); Immature Granulocytes # (auto) 0.02 K/uL (0.00-0.02); Immature Granulocytes % (auto) 0.2 %; Lymphocytes # (auto) 1.74 K/uL (1.2-3.4); Lymphocytes % (auto) 18.6 %; Mean Corpuscular Hemoglobin 31.6 pg (25-34); Mean Corpuscular Hgb Conc 33.3 g/dL (32-36); Mean Corpuscular Volume 94.8 fL (80-100); Mean Platelet Volume 10.9 fL (7.4-10.4); Monocytes # (auto) 1.37 K/uL (0.11-0.59); Monocytes % (auto) 14.6 %; Neutrophils # (auto) 6.04 K/uL (1.4-6.5); Neutrophils % (auto) 64.5 %; Platelet Count 179 K/uL (130-400); RDW Coefficient of Variation 14.9 % (11.5-14.5); RDW Standard Deviation 51.3 fL (36.4-46.3); Red Blood Count 5.16 M/uL (4.7-6.1); White Blood Count 9.37 K/uL (4.8-10.8)
[2020-10-26 04:38] LABS: BUN Creatinine Ratio 27.7 (10-20); Calcium 9.3 mg/dl (8.5-10.1); Creatinine Clr Calc Pharmacy 32.3 ml/min; Est GFR (African American) 38.9 ml/min; Est GFR (Non-African American) 33.6 ml/min; Magnesium 2.3 mg/dl (1.8-2.4); Potassium 4.2 mmol/L (3.5-5.1)
[2020-10-26 04:45] LABS: Troponin I 0.074 ng/ml (0-0.045)
[2020-10-26] MEDS: LEVOTHYROXINE SODIUM 50 MCG TABLET PO SCH (06:04)
[2020-10-26] MEDS: HEPARIN SOD 5,000 UNIT/0.5 ML VIAL SQ SCH ×2 (08:18→20:50)
[2020-10-26] MEDS: ASPIRIN 81 MG ECTAB PO SCH (08:20)
[2020-10-26] MEDS: PANTOprazole 40 MG TAB PO SCH (08:21)
[2020-10-26] MEDS: ATORVASTATIN 20 MG TAB PO SCH (08:21)
[2020-10-26] MEDS ORDERED: FUROSEMIDE 40 MG in SYRINGE 0 ML IV SCH (09:00)
[2020-10-26] MEDS ORDERED: FUROSEMIDE 40 MG/4 ML VIAL IV SCH (09:00)
--- NOTE | 2020-10-26 10:28 | Electrocardiogram Report ---
Test Reason : Blood Pressure : / mmHG Vent. Rate : 112 BPM Atrial Rate : 112 BPM P-R Int : 180 ms QRS Dur : 166 ms QT Int : 404 ms P-R-T Axes : 101 -79 027 degrees QTc Int : 551 ms Probably an atrial flutter Left axis deviation Right bundle branch block Inferior infarct (cited on or before 16-MAR-2017) Anterior infarct , age undetermined Abnormal ECG When compared with ECG of 08-MAY-2017 11:05, Vent. rate has increased BY 45 BPM Anterior infarct is now Present Atrial flutter has replaced Normal sinus rhythm Confirmed by Freddy Floyd ([id number]) on 10/26/2020 10:28:14 AM Referred By: REFERRED SELF Confirmed By:Freddy Floyd
--- NOTE | 2020-10-26 10:49 | Electrocardiogram Report ---
Test Reason : Blood Pressure : / mmHG Vent. Rate : 110 BPM Atrial Rate : 110 BPM P-R Int : 216 ms QRS Dur : 166 ms QT Int : 372 ms P-R-T Axes : 122 -81 029 degrees QTc Int : 503 ms Atrial flutter Left anterior fascicular block Right bundle branch block Inferior infarct (cited on or before 16-MAR-2017) Anteroseptal infarct (cited on or before 25-OCT-2020) T wave abnormality, consider lateral ischemia Abnormal ECG When compared with ECG of 25-OCT-2020 15:54, (unconfirmed) No significant change was found Confirmed by Freddy Floyd ([id number]) on 10/26/2020 10:48:48 AM Referred By: REFERRED SELF Confirmed By:Freddy Floyd
--- NOTE | 2020-10-26 17:05 | Hospitalist Progress Note ---
Date of Service October 26, 2020 Assessment & Plan (1) Acute on chronic combined systolic and diastolic heart failure: Plan: Progressive shortness of breath over the last 2 weeks with progressive lower extremity edema, known history of 35% ejection fraction per echo in September 2020, along with interval progression of small bilateral pleural effusions and mild interstitial pulmonary edema and BNP of 9200 supported the diagnosis of acute systolic heart failure. The patient does have a grade 3 diastolic dysfunction noted on previous echocardiogram. He was given 40 mg of Lasix through his IV yesterday with good response however this was not tract as the patient does not have a Young in place. He additionally did not have any monitoring of his output overnight secondary to self-reported diarrhea making it difficult to catch the urine to be tracked. Diarrhea has since ceased per patient. Lasix was stopped by overnight physician. Cardiology consulted, appreciate recommendations. Continue low-salt diet, daily weights. (2) Sinus tachycardia: Plan: Uncertain cause with etiologies including but not limited to pain (patient states he has none), dehydration or hypovolemia (this is possible in setting of recent diuretic therapy although he was tachycardic on arrival to the ER. He did mention diarrhea overnight but denies any diarrhea prior to arrival), OH (clinical picture not consistent with ACS-serial trop elevated but not flat, thought 2/2 passive congestion in acute heart failure, patient denies chest pain), pulmonary embolus (again patient denies pain or pain with inspiration, l ow risk for this), toxins/stimulants (less likely), withdrawal from beta- blockade (still taking his home coreg), anxiety ? Cont to monitor on telemetry for now and cont to hold diuretic therapy. (3) ROSA (acute kidney injury): Plan: Slight worsening of creatinine to 1.81 likely related to diuretic therapy. Diuretics were stopped overnight. Repeat BMP in a.m. (4) CKD (chronic kidney disease), stage III: Plan: Cr: 1.8. Baseline~1.3 Monitor renal functions, avoid nephrotoxic agents when possible (5) CAD (coronary artery disease): Plan: Continue medical management with aspirin 81, atorvastatin 20 mg daily, Coreg 3.125 mg p.o. twice daily. (6) Hypothyroidism: Plan: Continue levothyroxine, with ongoing tachycardia, will repeat TSH which has not been updated in 6 months. (7) Generalized weakness: Plan: No gross focal deficits on exam. PT/OT to evaluate. (8) DVT prophylaxis: Plan: Heparin SQ Full Code Dispo-cont telemetry monitoring. DO [facility] Hospital[facility] Admission and Anticipated Discharge Date Admission Date: October 25, 2020 Subjective 85-year-old man with a history of ischemic cardiomyopathy presented with increased lower extremity edema and shortness of breath x2 weeks. Output was not tracked successfully overnight and patient reports 6 episodes of diarrhea and urine output that was not able to be tracked. Diarrhea has since slowed down. He is feeling better from a breathing standpoint. He feels his leg swelling is improving although still present. He denies any chest pain, coughing, shortness of breath or other issues at this time. Encouraged to ambulate. Sinus tachy on monitor overnight. Review of Systems Review of Systems: All systems were reviewed and negative except as indicated in HPI above. Physical Exam Physical Exam: CONSTITUTIONAL: WNWD, vitals as above, generally well- appearing EYES: normal conjunctivae, no scleral icterus ENT: external ear and nose normal, MMM RESPIRATORY: clear to auscultation bilaterally, no crackles, rales or wheezes, normal respiratory effort CARDIOVASCULAR: regular rate and rhythm, S1 and 2 heard without murmurs, gallops or rubs, no JVD, 1+ peripheral edema GASTROINTESTINAL: soft, nontender, nondistended. MUSCULOSKELETAL: strength 5/5 throughout, head is normocephalic and atraumatic SKIN: warm and dry NEUROLOGIC: CN 2-12 grossly intact, no sensory deficit, normal cognition, normal speech, no gross focal deficits. PSYCHIATRIC: alert cooperative and oriented to person, place and time. Results & Data Results & Data ([facility]) Vital Signs (Past 12 Hours) Vital Signs Temp Pulse Resp BP Pulse Ox 10/26/20 15:58 36.4 C L 18 L 20 117/79 96 10/26/20 07:41 36.8 C 110 H 20 102/68 93 Laboratory Results Short CBC 10/26/20 Range/Units 03:49 WBC 9.37 (4.8-10.8) K/uL Hgb 16.3 (14.0-18.0) g/dL Hct 48.9 (42-52) % Plt Count 179 (130-400) K/uL [facility] 10/26/20 03:49 Sodium 139 Potassium 4.2 Chloride 109 H Carbon Dioxide 25 BUN 50 H Creatinine 1.81 H Glucose 91 Calcium 9.3 Cardiac Enzymes 10/25/20 10/26/20 Range/Units 22:21 03:49 Troponin I 0.058 H* 0.074 H* (0-0.045) ng/ml Urine 10/25/20 Range/Units 20:00 Urine Color Dark Yellow Urine Appearance Clear (Clear) Urine pH 5.0 (4.5-7.5) Ur Specific [place] 1.016 (1.000-1.030) Urine Protein 1+ H (Negative) Urine Glucose (UA) Negative (Negative) Medications Administered Current Inpatient Medications Acetaminophen (Acetaminophen 325 Mg Tab) 650 mg PO Q4H PRN PRN Reason: Pain or Fever Stop: 11/24/20 21:28 Aspirin (Aspirin 81 Mg Ectab) 81 mg PO DAILY BRANDT Stop: 11/25/20 08:59 Last Admin: 10/26/20 08:20 Dose: 81 mg Documented by: Atorvastatin Calcium (Atorvastatin 20 Mg Tab) 20 mg PO DAILY BRANDT Stop: 11/25/20 08:59 Last Admin: 10/26/20 08:21 Dose: 20 mg Documented by: Carvedilol (Carvedilol 3.125 Mg Tab) 3.125 mg PO BID BRANDT Stop: 11/25/20 03:34 Last Admin: 10/26/20 04:17 Dose: 3.125 mg Documented by: Heparin Sodium (Porcine) (Heparin Sod 5,000 Unit/0.5 Ml Vial) 5,000 units SQ Q12 BRANDT Stop: 11/24/20 21:28 Last Admin: 10/26/20 08:18 Dose: 5,000 units Documented by: Levothyroxine Sodium (Levothyroxine Sodium 50 Mcg Tablet) 50 mcg PO DAILYBB [facility] Stop: 11/25/20 06:29 Last Admin: 10/26/20 06:04 Dose: 50 mcg Documented by: Pantoprazole Sodium (Pantoprazole 40 Mg Tab) 40 mg PO DAILY BRANDT Stop: 11/25/20 08:59 Last Admin: 10/26/20 08:21 Dose: 40 mg Documented by: Polyethylene Glycol (Polyethylene (Miralax) 17 Gm Pack) 17 gm PO DAILY PRN PRN Reason: Constipation Stop: 11/24/20 21:28
--- NOTE | 2020-10-26 18:15 | Cardiology Consultation ---
Date of Consultation October 26, 2020 Assessment & Plan (1) Acute on chronic combined systolic and diastolic heart failure: Echocardiogram performed as an outpatient 09/24/2020 reviewed independently revealing severe concentric left ventricular hypertrophy, moderate left ventricular systolic dysfunction, grade 3 diastolic dysfunction, small circumferential pericardial effusion. The patient has a longstanding history of severe concentric left ventricular hypertrophy on serial echocardiograms, that is out of proportion to his relatively mild degree of hypertension. Chest x-ray this admission reveals interstitial edema, fluid in the right horizontal fissure of the lung, increased cardiac silhouette. EKG this admission reveals chronic right bundle branch block. Is difficult distinguish whether or not he is in a sinus tachycardia or perhaps an atrial flutter. I am hesitant to anticoagulate him pending further assessment with repeat echocardiogram as his pericardial effusion could have progressed over the last month. Diagnostics: Repeat transthoracic echocardiogram. Work-up has been in progress for infiltrative cardiomyopathy as an outpatient. Proceed with serum immunofixation, urine immunofixation/electrophoresis for work-up of infiltrative cardiomyopathy/amyloidosis. Will discontinue carvedilol, transition to metoprolol for better rate control. He received a dose of IV furosemide initially in the emergency room. Held today as his creatinine had trended up to 1.86. Will reassess renal function tomorrow with regards to ongoing diuretic therapy. History of Present Illness Attending Physician: Pallavi Vargas, History of Present Illness Faizan Desai is an 85-year-old male seen in cardiology consultation per the request of Demi Leon PA-C for the evaluation of congestive heart failure. Patient tells me he presented due to worsening lower extremity edema and fatigue. He notes his legs are so tired that he could not get up to go shopping even though he tried on multiple occasions. He just did not have the energy. The patient's primary credit union field examiner is Dr. Garcia of our practice. He has a history of coronary heart disease with resultant ischemic cardiomyopathy. At the time of his most recent follow-up visit in our office on 10/03/2020 he described ongoing fatigue and lower extremity edema. Furosemide was increased to 40 mg daily. Recent echocardiogram performed as an outpatient on 09/24/2020 revealed severe concentric left ventricular hypertrophy with moderate diffuse left ventricular hypokinesis, LVEF 36%, moderate MR, moderate TR, small circumferential pericardial effusion with grade 3 diastolic dysfunction. 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 PAST MEDICAL HISTORY: 1.CAD, Silent RCA distribution myocardial infarction, first seen on echo in 2017 2.Mild ischemic cardiomyopathy, chronic systolic heart failure, EF 45-49%, reduced on echo 09/2020 36% 3.Hypothyroidism. 4.Chronic sinusitis. 5. COPD Allergies Allergy/AdvReac Type Severity Reaction Status Date / Time Sulfa (Sulfonamide Allergy Unknown RASH Unverified 10/25/20 17:37 Antibiotics) Home Medications Medication Instructions Recorded Confirmed Type aspirin 81 mg tablet,delayed 81 mg PO DAILY 10/25/20 10/25/20 History release atorvastatin 20 mg tablet 20 mg PO DAILY 10/25/20 10/25/20 History azelastine 137 mcg (0.1 %) nasal 1 - 2 spray INTRANASAL BID 10/25/20 10/25/20 History spray aerosol carvedilol 3.125 mg tablet 3.125 mg PO BID 10/25/20 10/25/20 History fluticasone propionate 50 1 - 2 spray INTRANASAL Q12H 10/25/20 10/25/20 History mcg/actuation nasal spray,suspension (Flonase Allergy Relief) furosemide 20 mg tablet 40 mg PO DAILY 10/25/20 10/25/20 History levothyroxine 50 mcg tablet 50 mcg PO DAILYBB 10/25/20 10/25/20 History omeprazole 20 mg tablet,delayed 20 mg PO DAILY 10/25/20 10/25/20 History release polyethylene glycol 3350 17 17 g PO DIRECTED PRN 10/25/20 10/25/20 History gram/dose oral powder (Miralax) Patient History Medical History CAD (coronary artery disease) CKD (chronic kidney disease), stage III Diastolic CHF, chronic Hypothyroidism Ischemic cardiomyopathy Surgical History History of cataract surgery History of inguinal hernia repair History of nasal septoplasty Family History Father Cancer Social History Smoking Status: Never smoker Hx Alcohol Use: Yes Alcohol Intake Frequency: Monthly or Less Hx Substance Use: No Preferred Language: Thai Communication Ability: Effective Operator Catalyst Concentration Required: No Beliefs That Will Affect Care: None Current Living Situation: Alone Other Information That Helps Us Care for You: No Feels Safe at Home: Yes Assistive Devices: Glasses Review of Systems Review of Systems: All systems reviewed & are unremarkable except as noted in HPI & below Physical Exam Physical Exam: Temp Pulse Resp BP Pulse Ox 36.4 C L 18 L 20 117/79 96 10/26/20 15:58 10/26/20 15:58 10/26/20 15:58 10/26/20 15:58 10/26/20 15:58 Constitutional: cooperative; no acute distress (Chronically ill in appearance) Respiratory: Mildly decreased breath sounds at the bases bilaterally Cardiovascular: Extremities: + edema (1+ bilateral lower extremity edema, chronic venous stasis changes) Regular rhythm, no murmurs Neurologic: PERRL, EOMI, accommodation nl, no face palsy, no dysarthria Results & Data ([facility]) Vital Signs (Past 12 Hours) Vital Signs Temp Pulse Resp BP Pulse Ox 10/26/20 15:58 36.4 C L 18 L 20 117/79 96 10/26/20 07:41 36.8 C 110 H 20 102/68 93 Diagnostic Findings EKG performed today reveals sinus tachycardia versus atrial flutter at 110 bpm, right bundle branch block pattern, age-indeterminate inferior infarct pattern. CXR :IMPRESSION: Interval progression of the cardiomegaly, small bilateral pleural effusions, and mild interstitial pulmonary edema.
[2020-10-26] MEDS ORDERED: METOPROLOL TARTRATE 25 MG TAB PO SCH (21:00)
[2020-10-27] MEDS ORDERED: ALBUMIN 25% 12.5 GM/50 ML VIAL IV ONE ×2 (00:43→02:02)
[2020-10-27 01:06] LABS: Appearance Urine Clear (Clear); Bacteria Urine Automated Negative (Negative); Bilirubin Urine Negative (Negative); Blood Urine Negative (Negative); Color Urine Dark Yellow; Epithelial Cell Urine Auto 0-5 /lpf (0-5); Glucose Urine UA Negative (Negative); Ketones Urine Negative (Negative); Leukocyte Esterase Urine Negative (Negative); Nitrite Urine Negative (Negative); Protein Urine 1+ (Negative); RBC Urine Automated 0-4 /hpf (0-4); Specific Gravity Urine 1.022 (1.000-1.030); Urobilinogen Urine Negative (Negative); WBC Urine Automated 0 /hpf (0-5)
[2020-10-27 01:19] LABS: Basophils # (auto) 0.02 K/uL (0-0.2); Basophils % (auto) 0.2 %; Eosinophils # (auto) 0.19 K/uL (0-0.5); Eosinophils % (auto) 2.1 %; Hemoglobin 17.7 g/dL (14.0-18.0); Immature Granulocytes # (auto) 0.02 K/uL (0.00-0.02); Immature Granulocytes % (auto) 0.2 %; Lymphocytes # (auto) 2.35 K/uL (1.2-3.4); Lymphocytes % (auto) 25.6 %; Mean Corpuscular Hemoglobin 32.2 pg (25-34); Mean Corpuscular Hgb Conc 33.4 g/dL (32-36); Mean Corpuscular Volume 96.4 fL (80-100); Monocytes # (auto) 1.13 K/uL (0.11-0.59); Monocytes % (auto) 12.3 %; Neutrophils # (auto) 5.48 K/uL (1.4-6.5); Neutrophils % (auto) 59.6 %; Platelet Count 192 K/uL (130-400); RDW Coefficient of Variation 15.1 % (11.5-14.5); RDW Standard Deviation 53.4 fL (36.4-46.3); White Blood Count 9.19 K/uL (4.8-10.8)
[2020-10-27] MEDS: MELATONIN 3 MG TAB PO PRN (01:26)
[2020-10-27 01:35] LABS: BUN Creatinine Ratio 26.2 (10-20); Calcium 9.2 mg/dl (8.5-10.1); Est GFR (African American) 34.1 ml/min; Est GFR (Non-African American) 29.4 ml/min; Magnesium 2.5 mg/dl (1.8-2.4); Potassium 4.4 mmol/L (3.5-5.1)
[2020-10-27 01:46] LABS: Thyroid Stimulating Hormone 5.9 uIu/ml (0.300-4.500)
--- NOTE | 2020-10-27 01:57 | Communication Note ---
Date of Service: October 27, 2020 12:35 AM Patient noted to be confused as per RN. serum crea 2.02 from 1.81 yesterday ammonia 90s Ap Encephalopathy Multifactorial Hyperammonemia, no prior documentation of liver disease Worsening kidney dysfunction Lactulose Liver ultrasound, may need GI consult if abnormalities found Baseline UA, renal ultrasound, monitor creatinine response to IVF (colloid preferred over crystalloid given pulmonary congestion on x-ray) Will relay to AM provider.
[2020-10-27 01:58] LABS: T4 Free Thyroxine 1.12 ng/dl (0.8-1.6)
[2020-10-27] MEDS ORDERED: ACETAMINOPHEN 325 MG TAB PO PRN (02:15)
[2020-10-27 02:19] LABS: Albumin Level 3.6 gm/dl (3.4-5.0); Bilirubin Direct 1.4 mg/dl (0-0.2); Bilirubin,Total 2.6 mg/dl (0.2-1); Total Protein 7.7 gm/dl (6.4-8.2)
[2020-10-27] MEDS: LACTULOSE SYRUP 30 GM/45 ML UDP PO SCH ×2 (02:34→08:33)
[2020-10-27] MEDS: METOPROLOL TARTRATE 25 MG TAB PO SCH ×2 (06:25→20:30)
[2020-10-27] MEDS: LEVOTHYROXINE SODIUM 50 MCG TABLET PO SCH (06:25)
[2020-10-27 07:11] LABS: INR 1.4 (0.9-1.1); Prothrombin Time 14.1 Seconds (9.0-12.0)
[2020-10-27 07:27] LABS: Albumin Level 3.7 gm/dl (3.4-5.0); BUN Creatinine Ratio 27.4 (10-20); Calcium 9.3 mg/dl (8.5-10.1); Creatinine Clr Calc Pharmacy 30.3 ml/min; Est GFR (Non-African American) 31.1 ml/min; Potassium 4.2 mmol/L (3.5-5.1)
[2020-10-27 07:30] LABS: Bilirubin,Total 2.9 mg/dl (0.2-1); Globulin 3.6 gm/dl (2.5-4.0); Total Protein 7.3 gm/dl (6.4-8.2)
--- NOTE | 2020-10-27 08:02 | Ultrasound Report ---
RENAL ULTRASOUND CLINICAL HISTORY: Renal failure. COMPARISON STUDY: None. TECHNIQUE: Sonography of the kidneys and the urinary bladder was performed. FINDINGS: Right kidney measures 10.8 cm in maximal dimension and the left measures 10.6 cm. There is no hydronephrosis. Several bilateral renal cysts measure up to 2.5 cm. No renal calculi or solid mass es are identified by sonography. Both ureteral jets were identified. Bladder wall thickening and irre gularity is noted with trabeculations. Prostate is enlarged and indents the base of the bladder. IMPRESSION: 1. No hydronephrosis. 2. Enlarged prostate. Thickened, trabeculated bladder wall, likely chronic. ACT 112: Negative or not required by law. Electronically signed by: Praful Rizo M.D. 10/27/2020 8:00 AM
--- NOTE | 2020-10-27 08:04 | Ultrasound Report ---
US liver CLINICAL HISTORY: hyperammonemia. Evaluate for liver disease. COMPARISON STUDY: No previous studies for comparison. FINDINGS: Right pleural effusion is incidentally noted. There is no biliary ductal dilatation. The co mmon bile duct measures 4 mm in caliber. Pancreas is obscured. No hepatic lesions are identified. The re is a small amount of perihepatic ascites. There is slight nodularity of the liver surface. Gallbla dder is normal. There are no gallstones. There is no right hydronephrosis. IMPRESSION: 1. No gallstones or biliary ductal dilatation. 2. Slight nodularity of the liver surface. This may indicate cirrhosis. Small amount of perihepatic a scites. 3. Right pleural effusion. ACT 112: Negative or not required by law. Electronically signed by: Praful Rizo M.D. 10/27/2020 8:02 AM
[2020-10-27] MEDS: PANTOprazole 40 MG TAB PO SCH (08:30)
[2020-10-27] MEDS: ASPIRIN 81 MG ECTAB PO SCH (08:30)
[2020-10-27] MEDS: ATORVASTATIN 20 MG TAB PO SCH (08:30)
[2020-10-27] MEDS: HEPARIN SOD 5,000 UNIT/0.5 ML VIAL SQ SCH ×2 (08:31→21:12)
--- NOTE | 2020-10-27 08:44 | XRay Report ---
XR chest 1V portable HISTORY: renal failure COMPARISON: Chest 10/25/2020. FINDINGS: No pneumothorax. The heart remains enlarged. Slight progression of the asymmetric pulmonary edema and small bilateral pleural effusion/densities. IMPRESSION: Interval progression of the asymmetric pulmonary edema and bibasilar effusions/densities. ACT 112: Negative or not required by law. Electronically signed by: Mikel Whitfield M.D. 10/27/2020 8:43 AM
[2020-10-27] MEDS ORDERED: FUROSEMIDE 20 MG in SYRINGE 0 ML IV ONE (11:09)
--- NOTE | 2020-10-27 11:21 | Cardiology Progress Note ---
Date of Service October 27, 2020 Assessment & Plan (1) Tachycardia: (2) Acute on chronic combined systolic and diastolic heart failure: (3) Pericardial effusion: (4) ROSA (acute kidney injury): Plan: I reviewed echo results with the patient. The LVEF had previously been 45-50% historically, down to 36% September,, and 25-30% now with a small circumferential pericardial effusion. Patient likely has ROSA from cardiorenal syndrome with poor cardiac output, congestive hepatopathy. Will proceed with another trial of low dose IV furosemide as BP and renal function permits. Discussed placing Young catheter given patient's exhaustion walking to the bathroom, he prefers to delay this for now. With regards to his tachycardia. Difficult to discern if this is sinus tachycardia or atrial flutter. May be a physiologic sinus tachycardia due to low LVEF . Was in SR in the 80s a month ago. I am hesitant to anticoagulate him as his INR is already 1.4, and want to minimize risk of bleeding into the pericardial space. With regards to the differential diagnosis, severe global left ventricular hypokinesis as well as right ventricular hypokinesis is present, I think is echocardiogram is more compatible with a nonischemic cardiomyopathy rather than ischemic cardiomyopathy. Given the degree of left ventricular hypertrophy as well as the pericardial effusion, this raises the question of an infiltrative cardiomyopathy such as AL amyloidosis or transthyretin amyloidosis. Work-up to this regard has been initiated with serum and urine immunofixation, kappa and lambda serum protein levels. Another concern is that he did receive COVID-19 vaccine in August/September, timeframe, and he feels like his symptoms have been present for about a month dating back to September, and then is of course when he presented acutely and had his echocardiogram performed and therefore a COVID-19 vaccine related myocarditis is also a consideration , however typically has been seen in adolescents and young adults. Case discussed with Dr Vargas. I called patient's daughter Becki and provided her updates. Admission and Anticipated Discharge Date Admission Date: October 25, 2020 Subjective Patient seen in cardiology follow-up. His mental status is improved compared to when he had been seen by the on-call hospitalist last night for change in mental status. He notes ongoing severe fatigue minimal exertion such as walking to the bathroom for a bowel movement. Telemetry reveals ongoing right bundle branch block with tachycardia in the range of 110 bpm. Review of Systems Review of Systems: All systems reviewed & are unremarkable except as noted in HPI & below Physical Exam Physical Exam: Temp Pulse Resp BP Pulse Ox 36.3 C L 108 H 18 122/81 93 10/27/20 07:21 18 07:21 18 07:21 10/27/20 07:21 10/27/20 07:21 Constitutional: ill in appearance without distress Respiratory: Auscultation: + diminished lung sounds (decreased breath sounds at the bases ) Neurologic: PERRL, EOMI, accommodation nl, no face palsy, no dysarthria Results & Data ([facility]) Vital Signs (Past 12 Hours) Vital Signs Temp Pulse Pulse Resp BP Pulse Ox 10/27/20 07:21 36.3 C L 108 H 18 122/81 93 10/27/20 06:37 107 H 10/27/20 04:14 36.4 C L 107 H 18 119/67 95 10/27/20 00:00 109 H 10/26/20 23:27 36.3 C L 109 H 18 105/69 93 Laboratory Results UA: 1 + urine protein Ammonia level: 91 Cardiac Enzymes 10/27/20 10/27/20 Range/Units 00:59 06:28 AST 35 34 (15-37) U/L Coagulation INR 1.4 10/27/20 Range/Units 06:28 PT 14.1 H (9.0-12.0) Seconds CBC 10/27/20 Range/Units 00:59 WBC 9.19 (4.8-10.8) K/uL RBC 5.50 (4.7-6.1) M/uL Hgb 17.7 (14.0-18.0) g/dL Hct 53.0 H (42-52) % Plt Count 192 (130-400) K/uL Neut # (Auto) 5.48 (1.4-6.5) K/uL Lymph # (Auto) 2.35 (1.2-3.4) K/uL Boyd # (Auto) 1.13 H (0.11-0.59) K/uL Eos # (Auto) 0.19 (0-0.5) K/uL Baso # (Auto) 0.02 (0-0.2) K/uL Comprehensive Metabolic Panel 10/27/20 10/27/20 Range/Units 00:59 06:28 Sodium 137 140 (136-145) mmol/L Potassium 4.4 4.2 (3.5-5.1) mmol/L Chloride 109 H 108 H (98-107) mmol/L Carbon Dioxide 20 L 25 (21-32) mmol/L BUN 53 H 53 H (7-18) mg/dl Creatinine 2.02 H 1.93 H (0.6-1.4) mg/dl Glucose 143 H 106 H (70-99) mg/dl Calcium 9.2 9.3 (8.5-10.1) mg/dl Direct Bilirubin 1.4 H (0-0.2) mg/dl AST 35 34 (15-37) U/L ALT 28 26 (12-78) U/L Alkaline Phosphatase 109 91 (45-117) U/L Total Protein 7.7 7.3 (6.4-8.2) gm/dl Albumin 3.6 3.7 (3.4-5.0) gm/dl Intake and Output 10/26/20 10/27/20 10/27/20 22:59 06:59 14:59 Intake Total 450 / 1080 Output Total 125 / 125 Balance 325 / 955 Intake: IV 100 / 100 Albumin 25% 12.5 gm In 50 ml @ 100 / 100 50 mls/hr IV ONE ONE Rx#: [id number] Oral 350 / 980 Output: Urine 125 / 125 Other: # Unmeasured Voids 1 Weight 75.3 kg
--- NOTE | 2020-10-27 15:11 | Hospitalist Progress Note ---
Date of Service October 27, 2020 Assessment & Plan (1) Acute on chronic combined systolic and diastolic heart failure: Plan: Progressive shortness of breath over the last 2 weeks with progressive lower extremity edema, known history of 35% ejection fraction per echo in September 2020, along with interval progression of small bilateral pleural effusions and mild interstitial pulmonary edema and BNP of 9200 supported the diagnosis of acute systolic heart failure. The patient does have a grade 3 diastolic dysfunction noted on previous echocardiogram. Echo performed this admission now reveals EF of 25 to 30% with a new small circumferential pericardial effusion. Patient is thought to have ROSA from cardiorenal syndrome with poor cardiac output and congestive hepatopathy. Lasix trial has been resumed as blood pressure and renal function permits. Patient still declines Young catheter. (2) Sinus tachycardia: Plan: Possible physiologic sinus tachycardia due to low ejection fraction. He also has extreme diarrhea from receiving 2 doses of lactulose overnight. He is already had 10 bowel movements this morning alone. Encouraged to hydrate orally including water and Powerade. We will not restrict fluids at this time but will avoid IV fluids given low ejection fraction. Continue monitoring telemetry. (3) Diarrhea: Plan: 2/2 lactulose given overnight which has been stopped. Encourage hydration and would not fluid restrict at this time. May add to worsening renal function. Encourage Powerade/Gatorade. (4) ROSA (acute kidney injury): Plan: Slight worsening of creatinine to 1.81 likely related to diuretic therapy but consideration also given to cardiorenal syndrome per cardiology notes. Resume Lasix trial, BMP in a.m. If creatinine continues to rise, consider consulting nephrology. (5) CKD (chronic kidney disease), stage III: Plan: Cr: 2.0. Baseline~1.3 Monitor renal functions, avoid nephrotoxic agents when possible (6) CAD (coronary artery disease): Plan: Continue medical management with aspirin 81, atorvastatin 20 mg daily, Coreg 3.125 mg p.o. twice daily. (7) Hypothyroidism: Plan: Continue levothyroxine, with ongoing tachycardia, repeat TSH is only slightly elevated from normal range. No adjustments to Synthroid. (8) Generalized weakness: Plan: No gross focal deficits on exam. PT/OT to evaluate. (9) DVT prophylaxis: Plan: Heparin SQ Full Code Dispo-cont telemetry monitoring. Transferred to PCU. Pallavi Vargas DO [facility] Hospitalist Admission and Anticipated Discharge Date Admission Date: October 25, 2020 Subjective 85-year-old man with a history of ischemic cardiomyopathy presented with increased lower extremity edema and shortness of breath x2 weeks. Still reports some dyspnea with exertion but denies giovanna SOB or chest pain. Reports swelling in his legs has improved. Oriented, but evidently he had some confusion overnight. An ammonia was drawn and elevated and lactulose 30gm x 2 doses was given. Unfortunately, he has had severe diarrhea all day as a result with >10 episodes of stool so far. Tolerating PO. Review of Systems Review of Systems: All systems were reviewed and negative except as indicated in HPI above. Physical Exam Physical Exam: CONSTITUTIONAL: WNWD, vitals as above, generally well- appearing EYES: normal conjunctivae, no scleral icterus ENT: external ear and nose normal, MMM RESPIRATORY: mild crackles at bases bilaterally, no rales or wheezes, normal respiratory effort CARDIOVASCULAR: tachy rate and rhythm, S1 and 2 heard without murmurs, gallops or rubs, no JVD, 1+ peripheral edema GASTROINTESTINAL: soft, nontender, nondistended. MUSCULOSKELETAL: strength 5/5 throughout, head is normocephalic and atraumatic SKIN: warm and dry NEUROLOGIC: CN 2-12 grossly intact, no sensory deficit, normal cognition, normal speech, no gross focal deficits. PSYCHIATRIC: alert cooperative and oriented to person, place and time. Results & Data Results & Data ([facility]) Vital Signs (Past 12 Hours) Vital Signs Temp Pulse Pulse Resp BP Pulse Ox 10/27/20 11:22 36.4 C L 109 H 20 132/87 98 10/27/20 07:21 36.3 C L 108 H 18 122/81 93 10/27/20 06:37 107 H 10/27/20 04:14 36.4 C L 107 H 18 119/67 95 Laboratory Results Short CBC 10/27/20 Range/Units 00:59 WBC 9.19 (4.8-10.8) K/uL Hgb 17.7 (14.0-18.0) g/dL Hct 53.0 H (42-52) % Plt Count 192 (130-400) K/uL BMP 10/27/20 10/27/20 00:59 06:28 Sodium 137 140 Potassium 4.4 4.2 Chloride 109 H 108 H Carbon Dioxide 20 L 25 BUN 53 H 53 H Creatinine 2.02 H 1.93 H Glucose 143 H 106 H Calcium 9.2 9.3 Liver Function 10/27/20 10/27/20 Range/Units 00:59 06:28 Total Bilirubin 2.6 H 2.9 H (0.2-1) mg/dl Direct Bilirubin 1.4 H (0-0.2) mg/dl AST 35 34 (15-37) U/L ALT 28 26 (12-78) U/L Alkaline Phosphatase 109 91 (45-117) U/L Albumin 3.6 3.7 (3.4-5.0) gm/dl Urine 10/26/20 Range/Units 23:30 Urine Color Dark Yellow Urine Appearance Clear (Clear) Urine pH 5.0 (4.5-7.5) Ur Specific [place] 1.022 (1.000-1.030) Urine Protein 1+ H (Negative) Urine Glucose (UA) Negative (Negative) Medications Administered Current Inpatient Medications Acetaminophen (Acetaminophen 325 Mg Tab) 325 mg PO Q6H PRN PRN Reason: Mild Pain Stop: 11/26/20 02:14 Aspirin (Aspirin 81 Mg Ectab) 81 mg PO DAILY BRANDT Stop: 11/25/20 08:59 Last Admin: 10/27/20 08:30 Dose: 81 mg Documented by: Atorvastatin Calcium (Atorvastatin 20 Mg Tab) 20 mg PO DAILY BRANDT Stop: 11/25/20 08:59 Last Admin: 10/27/20 08:30 Dose: 20 mg Documented by: Heparin Sodium (Porcine) (Heparin Sod 5,000 Unit/0.5 Ml Vial) 5,000 units SQ Q12 BRANDT Stop: 11/24/20 21:28 Last Admin: 10/27/20 08:31 Dose: 5,000 units Documented by: Furosemide 20 mg/ Syringe 2 mls @ 4 mls/min IV BID@0800,1400 BRANDT Stop: 11/27/20 07:59 Lactulose (Lactulose Syrup 30 Gm/45 Ml Udp) 30 gm PO TID BRANDT Stop: 11/26/20 01:59 Last Admin: 10/27/20 08:33 Dose: 30 gm Documented by: Levothyroxine Sodium (Levothyroxine Sodium 50 Mcg Tablet) 50 mcg PO DAILYBB BRANDT Stop: 11/25/20 06:29 Last Admin: 10/27/20 06:25 Dose: 50 mcg Documented by: Melatonin (Melatonin 3 Mg Tab) 3 mg PO HS PRN PRN Reason: Sleep Stop: 11/26/20 00:38 Last Admin: 10/27/20 01:26 Dose: 3 mg Documented by: Metoprolol Tartrate (Metoprolol Tartrate 25 Mg Tab) 25 mg PO BID BRANDT Stop: 11/26/20 05:19 Last Admin: 10/27/20 06:25 Dose: 25 mg Documented by: Pantoprazole Sodium (Pantoprazole 40 Mg Tab) 40 mg PO DAILY BRANDT Stop: 11/25/20 08:59 Last Admin: 10/27/20 08:30 Dose: 40 mg Documented by: Polyethylene Glycol (Polyethylene (Miralax) 17 Gm Pack) 17 gm PO DAILY PRN PRN Reason: Constipation Stop: 11/24/20 21:28
[2020-10-28 06:03] LABS: Calcium 9.4 mg/dl (8.5-10.1); Creatinine Clr Calc Pharmacy 31.3 ml/min; Est GFR (African American) 37.4 ml/min; Est GFR (Non-African American) 32.3 ml/min; Magnesium 2.3 mg/dl (1.8-2.4); Potassium 3.9 mmol/L (3.5-5.1)
[2020-10-28] MEDS: LEVOTHYROXINE SODIUM 50 MCG TABLET PO SCH (06:04)
[2020-10-28] MEDS: FUROSEMIDE 20 MG in SYRINGE 0 ML IV SCH ×2 (08:42→13:51)
[2020-10-28] MEDS: HEPARIN SOD 5,000 UNIT/0.5 ML VIAL SQ SCH ×2 (08:43→20:14)
--- NOTE | 2020-10-28 10:04 | Hospitalist Progress Note ---
Date of Service October 28, 2020 Assessment & Plan (1) Acute on chronic combined systolic and diastolic heart failure: Plan: Progressive shortness of breath over the last 2 weeks with progressive lower extremity edema, known history of 35% ejection fraction per echo in September 2020, along with interval progression of small bilateral pleural effusions and mild interstitial pulmonary edema and BNP of 9200 supported the diagnosis of acute systolic heart failure. The patient does have a grade 3 diastolic dysfunction noted on previous echocardiogram. Echo performed this admission now reveals EF of 25 to 30% with a new small circumferential pericardial effusion. Patient is thought to have ROSA from cardiorenal syndrome with poor cardiac output and congestive hepatopathy. Lasix trial has been resumed as blood pressure and renal function permits. Patient still declines Young catheter. (2) Sinus tachycardia: Plan: Possible physiologic sinus tachycardia due to low ejection fraction. He also has extreme diarrhea from receiving 2 doses of lactulose overnight. He is already had 10 bowel movements this morning alone. Encouraged to hydrate orally including water and Powerade. We will not restrict fluids at this time but will avoid IV fluids given low ejection fraction. Continue monitoring telemetry. (3) Diarrhea: Plan: 2/2 lactulose given overnight which has been stopped. Encourage hydration and would not fluid restrict at this time. May add to worsening renal function. Encourage Powerade/Gatorade. (4) ROSA (acute kidney injury): Plan: Slight worsening of creatinine to 1.81 likely related to diuretic therapy but consideration also given to cardiorenal syndrome per cardiology notes. Resume Lasix trial, BMP in a.m. If creatinine continues to rise, consider consulting nephrology. (5) CKD (chronic kidney disease), stage III: Plan: Cr: 2.0. Baseline~1.3 Monitor renal functions, avoid nephrotoxic agents when possible (6) CAD (coronary artery disease): Plan: Continue medical management with aspirin 81, atorvastatin 20 mg daily, Coreg 3.125 mg p.o. twice daily. (7) Hypothyroidism: Plan: Continue levothyroxine, with ongoing tachycardia, repeat TSH is only slightly elevated from normal range. No adjustments to Synthroid. (8) Generalized weakness: Plan: No gross focal deficits on exam. PT/OT to evaluate. (9) DVT prophylaxis: Plan: Heparin SQ Full Code Dispo-cont telemetry monitoring. Labs checked Plan: 85-year-old man with a history of ischemic cardiomyopathy presented with increased lower extremity edema and shortness of breath x2 weeks. ROS-No Headache, No Visual Changes, No Nausea, No Vomiting, No Fever, No Chills, No Neck Pain or Stiffness, No Chest Pain, No Palpitations, No SOB, No SIMPSON, No Cough, No Sputum, No Wheezing, No Abdominal Pain, No Diarrhea, No Hematemesis, No Hemoptysis, No Unexpected Weight Loss, No Flank pain, No Melena, No Hematochezia, No Frequency, No Urgency, No Burning, No Hematuria, No Rashes, No Diaphoresis. Appetite is Normal Physical Exam Gen-AAO x 3, NAD, Afebrile Head-NCAT, EOMI, PERRLA, Anicteric Sclera, No Posterior Pharyngeal Erythema Neck-Supple, No JVD, No Thyromegaly, No Masses, No LAD, No Bruits Lungs-Clear to Auscultation Bilaterally, No Rales, No Rhonchi, No Wheezing, No Crepitus Chest-Tachy, Regular, No S4, +S1, +S2, No S3, No Murmurs, No Rubs, No Gallops, No Ectopy Abdomen-Soft, Bowel Sounds Present, Non Tender, Non Distended, No Hepatomegaly, No Splenomegaly, No Palpable Masses, No Rebound, No Rigidity, No Guarding Musculoskeletal-Full Range of Motion Bilaterally, No CVAT Extremities-No Cyanosis, No Clubbing, No Edema Nuero-Cranial Nerves II-XII grossly intact, Motor WNL, DTRs WNL, Strength WNL, Non Focal Psych-Normal Mood Admission and Anticipated Discharge Date Admission Date: October 25, 2020 Results & Data Results & Data ([facility]) Vital Signs (Past 12 Hours) Vital Signs Temp Pulse Resp BP Pulse Ox 10/28/20 07:06 36.6 C 110 H 24 128/82 97 10/28/20 03:59 36.6 C 110 H 26 H 118/72 93 10/27/20 22:55 36.5 C 112 H 20 130/82 95
[2020-10-28] MEDS: ATORVASTATIN 20 MG TAB PO SCH (10:13)
[2020-10-28] MEDS: PANTOprazole 40 MG TAB PO SCH (10:13)
[2020-10-28] MEDS: METOPROLOL TARTRATE 25 MG TAB PO SCH ×2 (10:14→20:14)
[2020-10-28] MEDS: ASPIRIN 81 MG ECTAB PO SCH (10:14)
[2020-10-28] MEDS ORDERED: FUROSEMIDE 10 MG/ML 10 ML VIAL IV ONE (13:42)
[2020-10-28] MEDS ORDERED: FUROSEMIDE 100 MG in SYRINGE 0 ML IV ONE (13:45)
[2020-10-28] MEDS ORDERED: Nursing to Pharmacy Communication SCH (14:00)
[2020-10-28] MEDS ORDERED: FUROSEMIDE 80 MG in SYRINGE 0 ML IV ONE (14:00)
--- NOTE | 2020-10-28 14:09 | XRay Report ---
XR chest 1V portable CLINICAL HISTORY: Shortness of breath COMPARISON STUDY: 10/27/2020 FINDINGS: 1. Cardiomegaly and radiographic findings consistent with congestive failure/fluid overload with smal l bilateral pleural effusions[ IMPRESSION: No active disease in the chest. ACT 112: Negative or not required by law. Electronically signed by: Michael Curiel M.D. 10/28/2020 2:07 PM
[2020-10-28 14:30] LABS: Base Excess ABG -2.5 mEq/L (-9-1.8); HCO3 ABG 21 mmol/L (19-24); Oxygen Saturation ABG 98.3 % (90-95); PCO2 ABG 32 mmHg (35-46); PO2 ABG 113 mmHg (80-95); pH ABG 7.43 (7.35-7.45)
--- NOTE | 2020-10-28 14:30 | Cardiology Progress Note ---
Date of Service October 28, 2020 Assessment & Plan (1) Tachycardia: (2) Acute on chronic combined systolic and diastolic heart failure: (3) Pericardial effusion: (4) ROSA (acute kidney injury): Plan: With regards to his tachycardia. It is ifficult to discern if this is sinus tachycardia or atrial flutter (favoring atrial flutter as of 10/28/20). May be a physiologic sinus tachycardia due to low LVEF . Was in SR in the 80s a month ago. I am hesitant to anticoagulate him as his INR is already 1.4, and want to minimize risk of bleeding into the pericardial space. With regards to the differential diagnosis, severe global left ventricular hypokinesis as well as right ventricular hypokinesis is present, I think is echocardiogram is more compatible with a nonischemic cardiomyopathy rather than ischemic cardiomyopathy. Given the degree of left ventricular hypertrophy as well as the pericardial effusion, this raises the question of an infiltrative cardiomyopathy such as AL amyloidosis or transthyretin amyloidosis. Work-up to this regard has been initiated with serum and urine immunofixation, kappa and lambda serum protein levels. Another concern is that he did receive COVID-19 vaccine in August/September, timeframe, and he feels like his symptoms have been present for about a month dating back to September. Inflammatory markers however are negative, and literature suggests this is limited to adolescents and young adults, no typically in patients of his age and presentation. Continue furosemide. Metoprolol. Increase metoprolol dose. Admission and Anticipated Discharge Date Admission Date: October 25, 2020 Subjective Patient with ongoing fatigue and shortness of breath. Daughter, Becki, at the bedside. LE edema improved. Telemetry with ongoing tachycardia, likely AFL at 108 bpm. Physical Exam Physical Exam: Temp Pulse Resp BP Pulse Ox 36.5 C 103 H 18 121/76 95 10/28/20 11:00 10/28/20 11:00 10/28/20 11:00 10/28/20 11:10/28/20 11:00 Constitutional: + ill appearing and + cachectic Respiratory: Auscultation: + diminished lung sounds (decreased BS at the bases ) Gastrointestinal (Abdomen): normal bowel sounds, soft, nontender, no hepatosplenomegaly Neurologic: PERRL, EOMI, accommodation nl, no face palsy, no dysarthria Results & Data ([facility]) Vital Signs (Past 12 Hours) Vital Signs Temp Pulse Resp BP Pulse Ox 10/28/20 11:00 36.5 C 103 H 18 121/76 95 10/28/20 07:06 36.6 C 110 H 24 128/82 97 10/28/20 03:59 36.6 C 110 H 26 H 118/72 93
[2020-10-28 14:32] LABS: Allen Test Pos (Pos)
[2020-10-29 05:49] LABS: Hematocrit (blood only) 48.7 % (42-52); Hemoglobin 16.2 g/dL (14.0-18.0); Mean Corpuscular Hemoglobin 31.7 pg (25-34); Mean Corpuscular Hgb Conc 33.3 g/dL (32-36); Mean Corpuscular Volume 95.3 fL (80-100); Mean Platelet Volume 10.8 fL (7.4-10.4); Platelet Count 172 K/uL (130-400); RDW Coefficient of Variation 15.3 % (11.5-14.5); RDW Standard Deviation 53.1 fL (36.4-46.3); Red Blood Count 5.11 M/uL (4.7-6.1); White Blood Count 8.78 K/uL (4.8-10.8)
[2020-10-29] MEDS: LEVOTHYROXINE SODIUM 50 MCG TABLET PO SCH (06:02)
[2020-10-29 06:18] LABS: Calcium 9.2 mg/dl (8.5-10.1); Creatinine Clr Calc Pharmacy 26.9 ml/min; Est GFR (African American) 32.3 ml/min; Est GFR (Non-African American) 27.9 ml/min; Potassium 3.8 mmol/L (3.5-5.1)
--- NOTE | 2020-10-29 09:01 | Hospitalist Progress Note ---
Date of Service October 29, 2020 Assessment & Plan (1) Acute on chronic combined systolic and diastolic heart failure: Plan: Progressive shortness of breath over the last 2 weeks with progressive lower extremity edema, known history of 35% ejection fraction per echo in September 2020, along with interval progression of small bilateral pleural effusions and mild interstitial pulmonary edema and BNP of 9200 supported the diagnosis of acute systolic heart failure. The patient does have a grade 3 diastolic dysfunction noted on previous echocardiogram. Echo performed this admission now reveals EF of 25 to 30% with a new small circumferential pericardial effusion. Patient is thought to have ROSA from cardiorenal syndrome with poor cardiac output and congestive hepatopathy. On Lasix. (2) Sinus tachycardia: Plan: Possible physiologic sinus tachycardia due to low ejection fraction. He also has extreme diarrhea from receiving 2 doses of lactulose overnight. He is already had 10 bowel movements this morning alone. Encouraged to hydrate orally including water and Powerade. Cr 2.11 today. We will not restrict fluids at this time but will avoid IV fluids given low ejection fraction. Continue mo nitoring telemetry. (3) Diarrhea: Plan: Encourage Powerade/Gatorade. (4) ROSA (acute kidney injury): Plan: Slight worsening of creatinine to 2.11 likely related to diuretic therapy but consideration also given to cardiorenal syndrome per cardiology notes. Resume Lasix trial, monitor BMP. Consult Nephrology. (5) CKD (chronic kidney disease), stage III: Plan: Cr: 2.11. Baseline~1.3 Monitor renal functions, avoid nephrotoxic agents when possible (6) CAD (coronary artery disease): Plan: Continue medical management with aspirin 81, atorvastatin 20 mg daily, Metoprolol replaced Coreg. (7) Hypothyroidism: Plan: Continue levothyroxine, with ongoing tachycardia, repeat TSH is only slightly elevated from normal range. No adjustments to Synthroid. (8) Generalized weakness: Plan: No gross focal deficits on exam. PT/OT. (9) DVT prophylaxis: Plan: Heparin SQ Full Code Dispo-cont telemetry monitoring. Labs checked Plan: 85-year-old man with a history of ischemic cardiomyopathy presented with increased lower extremity edema and shortness of breath x2 weeks. ROS-No Headache, No Visual Changes, No Nausea, No Vomiting, No Fever, No Chills, No Neck Pain or Stiffness, No Chest Pain, No Palpitations, No SOB, No SIMPSON, No Co ugh, No Sputum, No Wheezing, No Abdominal Pain, No Diarrhea, No Hematemesis, No Hemoptysis, No Unexpected Weight Loss, No Flank pain, No Melena, No Hematochezia, No Frequency, No Urgency, No Burning, No Hematuria, No Rashes, No Diaphoresis. Appetite is Normal Physical Exam Gen-AAO x 3, NAD, Afebrile Head-NCAT, EOMI, PERRLA, Anicteric Sclera, No Posterior Pharyngeal Erythema Neck-Supple, No JVD, No Thyromegaly, No Masses, No LAD, No Bruits Lungs-Clear to Auscultation Bilaterally, No Rales, No Rhonchi, No Wheezing, No Crepitus Chest-Tachy, Regular, No S4, +S1, +S2, No S3, No Murmurs, No Rubs, No Gallops, No Ectopy Abdomen-Soft, Bowel Sounds Present, Non Tender, Non Distended, No Hepatomegaly, No Splenomegaly, No Palpable Masses, No Rebound, No Rigidity, No Guarding Musculoskeletal-Full Range of Motion Bilaterally, No CVAT Extremities-No Cyanosis, No Clubbing, No Edema Nuero-Cranial Nerves II-XII grossly intact, Motor WNL, DTRs WNL, Strength WNL, Non Focal Psych-Normal Mood Admission and Anticipated Discharge Date Admission Date: October 25, 2020 Results & Data Results & Data ([facility]) Vital Signs (Past 12 Hours) Vital Signs Temp Pulse Resp BP Pulse Ox 10/29/20 07:48 36.6 C 106 H 16 109/67 94 10/29/20 03:54 36.7 C 103 H 18 103/73 98 10/28/20 22:29 36.7 C 104 H 20 100/68 99
[2020-10-29] MEDS: FUROSEMIDE 20 MG in SYRINGE 0 ML IV SCH ×2 (09:20→14:08)
[2020-10-29] MEDS: METOPROLOL TARTRATE 25 MG TAB PO SCH ×2 (09:39→20:14)
[2020-10-29] MEDS: PANTOprazole 40 MG TAB PO SCH (09:40)
[2020-10-29] MEDS: ASPIRIN 81 MG ECTAB PO SCH (09:40)
[2020-10-29] MEDS: ATORVASTATIN 20 MG TAB PO SCH (09:40)
[2020-10-29] MEDS: HEPARIN SOD 5,000 UNIT/0.5 ML VIAL SQ SCH ×2 (09:40→20:14)
--- NOTE | 2020-10-29 12:12 | Consultation Report ---
NEPHROLOGY CONSULTATION DATE OF CONSULTATION: 10/29/2020 REASON FOR CONSULTATION: Acute on chronic renal failure. HISTORY OF PRESENT ILLNESS: The patient is an 85-year-old male who was admitted 4 days ago with increasing shortness of breath, orthopnea and increasing lower extremity edema with fatigue. The patient has a history of coronary artery disease with ischemic cardiomyopathy with an EF of 36%. His Lasix dose was increased recently to 40 mg daily as an outpatient. The patient says he was not doing as good as he was supposed to do with the fluid as well as taking the medication prior to hospital admission. Since admission, he has received some IV Lasix and he is still getting Lasix 20 IV twice daily. His baseline creatinine is hard to pinpoint as it does fluctuate based on hydration status. He presented with a creatinine of 1.59, which is pretty close to his baseline and since then it has very slowly gone up steadily and is now 2.11. BUN has also gone up slowly. Other electrolytes are reasonable. BNP was elevated. Chest x-ray did show CHF and pulmonary congestion with small bilateral pleural effusion. He has had echocardiogram done since admission and has been closely followed by cardiology. The patient feels significantly better than when he came to the hospital. His edema is almost totally gone. He feels better from a breathing standpoint and is overall quite happy with his progress. Heart rate is still high at 106 per minute. Blood pressure is on the low end. He is not requiring any oxygen and he feels pretty comfortable at this point. ALLERGIES: ALLERGY LIST IS REVIEWED. MEDICATIONS: Home medication list was reviewed in detail and is as per the reconciliation list. Of special interest to nephrology, his most recent outpatient dose of Lasix was 40 mg daily, although it is not entirely clear whether he was actually taking that medicine as prescribed or not. PAST MEDICAL AND SURGICAL HISTORY: Coronary artery disease, chronic kidney disease stage III with baseline creatinine anywhere from low to mid 1s with frequent fluctuation. Diastolic congestive heart failure, chronic, with disproportionately severe concentric LVH. Hypothyroidism, ischemic cardiomyopathy versus nonischemic. PAST SURGICAL HISTORY: Cataract, inguinal hernia, nasal septoplasty. SOCIAL HISTORY: Never smoked. No alcohol. He lives alone. No oxygen. No walking aid. REVIEW OF SYSTEMS: As detailed in HPI. It was positive for lower extremity edema, shortness of breath, but otherwise unremarkable and negative for 12 systems. PHYSICAL EXAMINATION: GENERAL: Elderly white male who is not in any overt respiratory distress at this point of time, he was watching TV news appropriately and had normal speech and accurate interview. VITAL SIGNS: Blood pressure 109/67, pulse rate 106, temperature 36.6, 94% on room air. HEENT: Mucous membranes moist. NECK: No jugular venous distention. CHEST: Bilateral decreased breath sounds with occasional crackles and diminished lung sounds. CARDIOVASCULAR: Regular rate and rhythm, tachycardic. Soft systolic murmur heard. EXTREMITIES: Show no edema at this point in the ankles as well as upper thigh or in the presacral region. SKIN: Does show skin changes from chronic venous stasis. NEUROLOGIC: Awake, alert and oriented. Normal speech, normal affect. LABORATORY TEST: At the time of admission, his creatinine was pretty close to baseline at 1.59, but since then has steadily gone up to 2.11 today. This morning labs, his BUN 57, sodium 138, potassium 3.8, chloride 107, CO2 of 26, magnesium 2.3. Chest x-ray shows bilateral pleural effusion with CHF. ASSESSMENT AND PLAN: An 85-year-old male admitted with symptomatic congestive heart failure. The patient does have baseline chronic kidney disease with baseline creatinine around 1.3-1.5 range. Creatinine has gone up steadily in the last 4 days since admission for which I have been consulted. Acute renal failure on background chronic kidney disease III. The acute component is pretty minimal and it is not unexpected in the current setting. This is related with renal hemodynamic changes, does not have any blood and has about 1+ protein, so not really acting like a nephrotic syndrome or any types of glomerulonephritis. Some rise in creatinine with diuresis is to be expected at this age. But this is more likely his true creatinine than his admission one, which was misleading because of hemodilution. In any case, I expect his renal function to stabilize in the coming days. Continue IV Lasix as is being done today. If the creatinine is still rising tomorrow, we can cut back on the dose. Cardiology has started investigation for infiltrative cardiomyopathy at this point, which is appropriate. The results of that are still pending and will not be back for almost a week. Renal ultrasound was already done a few days ago and does not show any obstructive uropathy. We can check spot urine protein to creatinine ratio as the result of that will come a lot sooner. Job ID: [id number] INÉS
--- NOTE | 2020-10-29 16:10 | Cardiology Progress Note ---
Date of Service October 29, 2020 Assessment & Plan (1) Tachycardia: (2) Acute on chronic combined systolic and diastolic heart failure: (3) Pericardial effusion: (4) ROSA (acute kidney injury): Plan: He is likely an atrial flutter with ventricular rates of 108 -110 bpm. I am hesitant to anticoagulate him as his INR is already 1.4, and want to minimize risk of bleeding into the pericardial space. With regards to the differential diagnosis, severe global left ventricular hypokinesis as well as right ventricular hypokinesis is present, I think is echocardiogram is more compatible with a nonischemic cardiomyopathy rather than ischemic cardiomyopathy. Given the degree of left ventricular hypertrophy as well as the pericardial effusion, this raises the question of an infiltrative cardiomyopathy such as AL amyloidosis or transthyretin amyloidosis. Work-up to this regard has been initiated with serum and urine immunofixation, kappa and lambda serum protein levels. Nephrology input noted, does of furosemide 20 mg IV given today. Hold tomorrow's dose pending results of am labs. Continue low dose metoprolol. Admission and Anticipated Discharge Date Admission Date: October 25, 2020 Subjective Patient without acute complaint. Mentating well. His daughter is at the bedside. Physical Exam Physical Exam: Temp Pulse Resp BP Pulse Ox 36.8 C 108 H 16 115/72 95 10/29/20 12:13 10/29/20 12:13 10/29/20 12:13 10/29/20 12:13 10/29/20 12:13 Constitutional: + ill appearing and + cachectic Respiratory: Auscultation: + diminished lung sounds (mildly decreased BS at the bases); no crackles and no rales Cardiovascular: Rate/Rhythm: regular rate and + tachycardic Heart Sounds: no murmur Gastrointestinal (Abdomen): normal bowel sounds, soft, nontender, no hepatosplenomegaly Neurologic: PERRL, EOMI, accommodation nl, no face palsy, no dysarthria Results & Data ([facility]) Vital Signs (Past 12 Hours) Vital Signs Temp Pulse Resp BP Pulse Ox 10/29/20 12:13 36.8 C 108 H 16 115/72 95 10/29/20 07:48 36.6 C 106 H 16 109/67 94
[2020-10-30 05:44] LABS: Hematocrit (blood only) 48.4 % (42-52); Hemoglobin 16.3 g/dL (14.0-18.0); Mean Corpuscular Hgb Conc 33.7 g/dL (32-36); Mean Corpuscular Volume 95.1 fL (80-100); Mean Platelet Volume 11.1 fL (7.4-10.4); Platelet Count 186 K/uL (130-400); RDW Coefficient of Variation 15.4 % (11.5-14.5); RDW Standard Deviation 53.1 fL (36.4-46.3); Red Blood Count 5.09 M/uL (4.7-6.1); White Blood Count 8.47 K/uL (4.8-10.8)
[2020-10-30] MEDS: LEVOTHYROXINE SODIUM 50 MCG TABLET PO SCH (06:01)
[2020-10-30 06:20] LABS: Calcium 9.2 mg/dl (8.5-10.1); Creatinine Clr Calc Pharmacy 28.6 ml/min; Est GFR (African American) 35.1 ml/min; Est GFR (Non-African American) 30.3 ml/min; Potassium 3.7 mmol/L (3.5-5.1)
[2020-10-30] MEDS: ASPIRIN 81 MG ECTAB PO SCH (08:34)
[2020-10-30] MEDS: HEPARIN SOD 5,000 UNIT/0.5 ML VIAL SQ SCH (08:35)
[2020-10-30] MEDS: METOPROLOL TARTRATE 25 MG TAB PO SCH ×2 (08:35→21:10)
[2020-10-30] MEDS: ATORVASTATIN 20 MG TAB PO SCH (08:35)
[2020-10-30] MEDS: PANTOprazole 40 MG TAB PO SCH (08:36)
[2020-10-30] MEDS ORDERED: FUROSEMIDE 20 MG in SYRINGE 0 ML IV ONE (09:00)
--- NOTE | 2020-10-30 09:07 | Newborn Progress Note ---
Date of Service October 30, 2020 Subjective No new issues. Amking urine feels fine. No edema and no SOB. PHYSICAL EXAMINATION: GENERAL: Elderly white male who is not in any overt respiratory distress at this point of time, he was watching TV news appropriately and had normal speech and accurate interview. HEENT: Mucous membranes moist. NECK: No jugular venous distention. CHEST: Bilateral decreased breath sounds with occasional crackles and diminished lung sounds. CARDIOVASCULAR: Regular rate and rhythm, tachycardic. Soft systolic murmur heard. EXTREMITIES: Show no edema at this point in the ankles as well as upper thigh or in the presacral region. SKIN: Does show skin changes from chronic venous stasis. NEUROLOGIC: Awake, alert and oriented. Normal speech, normal affect. LABORATORY TEST: At the time of admission, his creatinine was pretty close to baseline at 1.59, but since then has steadily gone up to 2.11 and 1.97 today. ASSESSMENT AND PLAN: An 85-year-old male admitted with symptomatic congestive heart failure. The patient does have baseline chronic kidney disease with basel ine creatinine around 1.3-1.5 range. Creatinine has gone up steadily in the last 4 days since admission for which I have been consulted. Acute renal failure on background chronic kidney disease III. The acute component is pretty minimal and it is not unexpected in the current setting. This is related with renal hemodynamic changes, does not have any blood and has about 1+ protein, so not really acting like a nephrotic syndrome or any types of glomerulonephritis. Some rise in creatinine with diuresis is to be expected at this age. But this is more likely his true creatinine than his admission one, which was misleading because of hemodilution. In any case, I expect his renal function to stabilize in the coming days. Continue IV Lasix as is being done today. If the creatinine is still rising tomorrow, we can cut back on the dose. Cardiology has started investigation for infiltrative cardiomyopathy at this point, which is appropriate. The results of that are still pending and will not be back for almost a week. Renal ultrasound was already done a few days ago and does not show any obstructive uropathy. We can check spot urine protein to creatinine ratio as the result of that will come a lot sooner. Rec: 1 Creat down from yesterday--Good sign. 2 Defer Diuretics dosing to cards. He does seem much better from fluid standpoint--No edema now and no SOB. 3 Will sign off. Call if any new issues. Height & Weight [place] Length (height) cm: 6 ft 1 in Current Weight: 72.5 kg Urine & Stool Stool Size: Moderate Results (NB) Laboratory Results (24 Hours) Laboratory Results - last 24 hr 10/30/20 10/30/20 05:25 05:25 WBC 8.47 RBC 5.09 Hgb 16.3 Hct 48.4 MCV 95.1 MCH 32.0 MCHC 33.7 RDW Std Deviation 53.1 H RDW Coeff of Lesley 15.4 H Plt Count 186 MPV 11.1 H Sodium 139 Potassium 3.7 Chloride 108 H Carbon Dioxide 26 Anion Gap 5.0 BUN 57 H Creatinine 1.97 H Est Cr Clr Drug Dosing 28.6 Est GFR ( Amer) 35.1 Est GFR (Non-Af Amer) 30.3 BUN/Creatinine Ratio 29.0 H Glucose 87 Calcium 9.2
--- NOTE | 2020-10-30 15:00 | Cardiology Progress Note ---
Date of Service October 30, 2020 Assessment & Plan (1) Atrial flutter: (2) Acute on chronic combined systolic and diastolic heart failure: (3) Pericardial effusion: (4) ROSA (acute kidney injury): Plan: Creatinine 1.9 today, Furosemide 20 mg IV daily resumed. Change metoprolol to succinate 75 mg daily tomorrow. Hold SQ heparin, for possible abdominal fat pad biopsy. Will discuss abdominal fat pad biopsy with general surgery. Atrial flutter, rates 100-110, no anticoagulation due to pericardial effusion. Admission and Anticipated Discharge Date Admission Date: October 25, 2020 Subjective Patient without acute complaints. Physical Exam Physical Exam: Temp Pulse Resp BP Pulse Ox 36.8 C 109 H 22 129/87 98 10/30/20 11:47 10/30/20 11:47 10/30/20 11:47 10/30/20 11:47 10/30/20 11:47 Constitutional: + thin and + cachectic; no acute distress Respiratory: Auscultation: + diminished lung sounds (decreased BS at the bases ) Gastrointestinal (Abdomen): normal bowel sounds, soft, nontender, no hepatosplenomegaly Neurologic: PERRL, EOMI, accommodation nl, no face palsy, no dysarthria Results & Data ([facility]) Vital Signs (Past 12 Hours) Vital Signs Temp Pulse Resp BP Pulse Ox 10/30/20 11:47 36.8 C 109 H 22 129/87 98 10/30/20 08:00 36.4 C L 111 H 20 131/72 96
--- NOTE | 2020-10-30 15:50 | Hospitalist Progress Note ---
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 The patient does have a grade 3 diastolic dysfunction noted on previous echocardiogram. Echo performed this admission now reveals EF of 25 to 30% with a new small circumferential pericardial effusion. Patient is thought to have ROSA from cardiorenal syndrome with poor cardiac output and congestive hepatopathy. Creatinine is 1.9 and cardiology has resumed IV Lasix for continued diuresis. Investigation for possible infiltrative cardiomyopathy is underway. (2) Tachycardia: Plan: Thought to be in atrial flutter with rate of 100-110 per cardiology. No anticoagulation 2/2 pericardial effusion and INR already elevated slightly. (3) ROSA (acute kidney injury): Plan: Nephrology following, creatinine improved. Lasix as tolerated. (4) CKD (chronic kidney disease), stage III: Plan: Baseline~1.3 Monitor renal functions, avoid nephrotoxic agents when possible (5) CAD (coronary artery disease): Plan: Continue medical management with aspirin 81, atorvastatin 20 mg daily, Metoprolol replaced Coreg. Plan to transition to Toprol for GDMT. (6) Hypothyroidism: Plan: Continue levothyroxine, with ongoing tachycardia, repeat TSH is only slightly elevated from normal range. No adjustments to Synthroid. (7) Generalized weakness: Plan: No gross focal deficits on exam. PT/OT. (8) DVT prophylaxis: Plan: Heparin SQ Full Code Dispo-cont telemetry monitoring. Pallavi Vargas DO [facility] Hospitalist Admission and Anticipated Discharge Date Admission Date: October 25, 2020 Subjective 85-year-old man with a history of ischemic cardiomyopathy presented with increased lower extremity edema and shortness of breath x2 weeks. Still with some shortness of breath with exertion but this is improved. LE edema is improved. He just awoke from a nap and is trying to get reoriented. Sister is at the bedside. He denies any pain. Review of Systems Review of Systems: All systems were reviewed and negative except as indicated in HPI above. Physical Exam Physical Exam: CONSTITUTIONAL: WNWD, vitals as above, generally well- appearing, disoriented, but easy to reorient. EYES: normal conjunctivae, no scleral icterus ENT: external ear and nose normal, MMM RESPIRATORY: CTAB, no rales or wheezes, normal respiratory effort CARDIOVASCULAR: tachy rate and rhythm, S1 and 2 heard without murmurs, gallops or rubs, no JVD, 1+ peripheral edema to mid shins bilaterally GASTROINTESTINAL: soft, nontender, nondistended. MUSCULOSKELETAL: strength 5/5 throughout, head is normocephalic and atraumatic SKIN: warm and dry NEUROLOGIC: CN 2-12 grossly intact, no sensory deficit, normal cognition, normal speech, no gross focal deficits. PSYCHIATRIC: alert cooperative Results & Data Results & Data ([facility]) Vital Signs (Past 12 Hours) Vital Signs Temp Pulse Resp BP Pulse Ox 10/30/20 15:45 109 H 20 119/70 96 10/30/20 11:47 36.8 C 109 H 22 129/87 98 10/30/20 08:00 36.4 C L 111 H 20 131/72 96 Laboratory Results Short CBC 10/30/20 Range/Units 05:25 WBC 8.47 (4.8-10.8) K/uL Hgb 16.3 (14.0-18.0) g/dL Hct 48.4 (42-52) % Plt Count 186 (130-400) K/uL BMP 10/30/20 05:25 Sodium 139 Potassium 3.7 Chloride 108 H Carbon Dioxide 26 BUN 57 H Creatinine 1.97 H Glucose 87 Calcium 9.2 Medications Administered Current Inpatient Medications Acetaminophen (Acetaminophen 325 Mg Tab) 325 mg PO Q6H PRN PRN Reason: Mild Pain Stop: 11/26/20 02:14 Aspirin (Aspirin 81 Mg Ectab) 81 mg PO DAILY BRANDT Stop: 11/25/20 08:59 Last Admin: 10/30/20 08:34 Dose: 81 mg Documented by: Atorvastatin Calcium (Atorvastatin 20 Mg Tab) 20 mg PO DAILY BRANDT Stop: 11/25/20 08:59 Last Admin: 10/30/20 08:35 Dose: 20 mg Documented by: Heparin Sodium (Porcine) (Heparin Sod 5,000 Unit/0.5 Ml Vial) 5,000 units SQ Q12 BRANDT Stop: 11/24/20 21:28 Last Admin: 10/30/20 08:35 Dose: 5,000 units Documented by: Levothyroxine Sodium (Levothyroxine Sodium 50 Mcg Tablet) 50 mcg PO DAILYBB [facility] Stop: 11/25/20 06:29 Last Admin: 10/30/20 06:01 Dose: 50 mcg Documented by: Melatonin (Melatonin 3 Mg Tab) 3 mg PO HS PRN PRN Reason: Sleep Stop: 11/26/20 00:38 Last Admin: 10/27/20 01:26 Dose: 3 mg Documented by: Metoprolol Succinate (Metoprolol Succ 25mg Ext Rel Tab) 75 mg PO QAM [facility] Stop: 11/30/20 08:59 Metoprolol Tartrate (Metoprolol Tartrate 25 Mg Tab) 37.5 mg PO BID [facility] Stop: 10/30/20 23:59 Last Admin: 10/30/20 08:35 Dose: 37.5 mg Documented by: Pantoprazole Sodium (Pantoprazole 40 Mg Tab) 40 mg PO DAILY [facility] Stop: 11/25/20 08:59 Last Admin: 10/30/20 08:36 Dose: 40 mg Documented by: Polyethylene Glycol (Polyethylene (Miralax) 17 Gm Pack) 17 gm PO DAILY PRN PRN Reason: Constipation Stop: 11/24/20 21:28
--- NOTE | 2020-10-30 16:27 | XRay Report ---
XR chest 2V PA/lateral CLINICAL HISTORY: CHF COMPARISON STUDY: 10/28/2020 FINDINGS: The heart remains enlarged. There are trace bilateral pleural effusions. There is suspected underlying pulmonary fibrosis. There is resolving pulmonary vascular congestion. IMPRESSION: 1. Cardiomegaly and resolving pulmonary vascular congestion. 2. Decreasing trace bilateral pleural effusions 3. Underlying pulmonary fibrotic changes suspected. ACT 112: Negative or not required by law. Electronically signed by: Michael Curiel M.D. 10/30/2020 4:26 PM
--- NOTE | 2020-10-30 17:09 | Surgery Consultation ---
Date of Consultation October 30, 2020 Assessment & Plan (1) Acute on chronic combined systolic and diastolic heart failure: Special Education Supervisor recommend to do biopsy abdominal fat pad, pt will have biopsy abdominal fat pad under local anesthesia, tomorrow, D/W benefits, risks and alternatives of the surgery, the risks - infection, bleeding, pt and his daughter understood, they agree with surgery, pt signed informed consent, I answered all questions, NPO after MN, History of Present Illness Reason for Consultation: for biopsy abdominal fat pad for amyloidosis Requesting Physician: Bjorn Giang MD Attending Physician: Pallavi Vargas, History of Present Illness CC: Acute on chronic combined systolic and diastolic heart failure: HPI, Progressive shortness of breath over the last 2 weeks with progressive lower extremity edema, known history of 35% ejection fraction per echo in September 2020, along with interval progression of small bilateral pleural effusions and mild interstitial pulmonary edema and BNP of 9200 supported the diagnosis of acute systolic heart failure. The patient does have a grade 3 diastolic dysfunction noted on previous echocardiogram. Echo performed this admission now reveals EF of 25 to 30% with a new small circumferential pericardial effusion. Patient is thought to have ROSA from cardiorenal syndrome with poor cardiac output and congestive hepatopathy. On Lasix. I ( Skyler Orourke MD ) got a call for consult biopsy abdominal fat pad for amyloidosis, I reviewed pt's H/P, labs with pt and his daughter, Allergies Allergy/AdvReac Type Severity Reaction Status Date / Time Sulfa (Sulfonamide Allergy Intermediate RASH Unverified 10/26/20 18:42 Antibiotics) Home Medications Medication Instructions Recorded Confirmed Type aspirin 81 mg tablet,delayed 81 mg PO DAILY 10/25/20 10/25/20 History release atorvastatin 20 mg tablet 20 mg PO DAILY 10/25/20 10/25/20 History azelastine 137 mcg (0.1 %) nasal 1 - 2 spray INTRANASAL BID 10/25/20 10/25/20 History spray aerosol carvedilol 3.125 mg tablet 3.125 mg PO BID 10/25/20 10/25/20 History fluticasone propionate 50 1 - 2 spray INTRANASAL Q12H 10/25/20 10/25/20 History mcg/actuation nasal spray,suspension (Flonase Allergy Relief) furosemide 20 mg tablet 40 mg PO DAILY 10/25/20 10/25/20 History levothyroxine 50 mcg tablet 50 mcg PO DAILYBB 10/25/20 10/25/20 History omeprazole 20 mg tablet,delayed 20 mg PO DAILY 10/25/20 10/25/20 History release polyethylene glycol 3350 17 17 g PO DIRECTED PRN 10/25/20 10/25/20 History gram/dose oral powder (Miralax) Patient History Medical History CAD (coronary artery disease) CKD (chronic kidney disease), stage III Diastolic CHF, chronic Hypothyroidism Ischemic cardiomyopathy Surgical History History of cataract surgery History of inguinal hernia repair History of nasal septoplasty Family History Father Cancer Social History Smoking Status: Never smoker Hx Alcohol Use: Yes Alcohol Intake Frequency: Monthly or Less Hx Substance Use: No Preferred Language: German Communication Ability: Effective Bath Steward Required: No Beliefs That Will Affect Care: None Current Living Situation: Alone Other Information That Helps Us Care for You: No Feels Safe at Home: Yes Assistive Devices: None Review of Systems Constitutional: as per Subjective / HPI Ear, Nose, Mouth, Throat: as per Subjective / HPI Respiratory: as per Subjective / HPI SOB Cardiovascular: Additional Comments: CAD, ischemic cardiomyopathy, CHF Neurologic: as per Subjective / HPI Psychiatric: as per Subjective / HPI Endocrine: as per Subjective / HPI Hematologic / Lymphatic: as per Subjective / HPI Physical Exam Constitutional: WD/WN, vitals as above Neck: trachea midline, no thyromegaly Cardiovascular: Rate/Rhythm: + irregularly irregular Gastrointestinal (Abdomen): soft, NT, ND, BS + Neurologic: patellar DTR's 2+ bilat, sensation intact Psychiatric: A+Ox3, euthymic affect Results & Data ([facility]) Vital Signs (Past 12 Hours) Vital Signs Temp Pulse Resp BP Pulse Ox 10/30/20 15:45 109 H 20 119/70 96 10/30/20 11:47 36.8 C 109 H 22 129/87 98 10/30/20 08:00 36.4 C L 111 H 20 131/72 96 Laboratory Results Abnormal lab results 10/30/20 10/30/20 Range/Units 05:25 05:25 RDW Std Deviation 53.1 H (36.4-46.3) fL RDW Coeff of Lesley 15.4 H (11.5-14.5) % MPV 11.1 H (7.4-10.4) fL Chloride 108 H (98-107) mmol/L BUN 57 H (7-18) mg/dl Creatinine 1.97 H (0.6-1.4) mg/dl BUN/Creatinine Ratio 29.0 H (10-20)
[2020-10-31] MEDS: LEVOTHYROXINE SODIUM 50 MCG TABLET PO SCH (06:14)
[2020-10-31 06:20] LABS: BUN Creatinine Ratio 28.7 (10-20); Calcium 9.3 mg/dl (8.5-10.1); Creatinine Clr Calc Pharmacy 27.2 ml/min; Est GFR (African American) 32.9 ml/min; Est GFR (Non-African American) 28.4 ml/min; Potassium 3.7 mmol/L (3.5-5.1)
[2020-10-31] MEDS ORDERED: ceFAZolin 2000MG 2,000 MG/15 ML SYR IV ONE ×2 (08:55→09:14)
--- NOTE | 2020-10-31 08:55 | History & Physical Bridge Note ---
Date of Service October 31, 2020 History & Physical Bridge Note I have examined the patient, reviewed the History & Physical and in the interval since the performance of the History & Physical I have noted the following changes of clinical significance: no changes noted
[2020-10-31] MEDS ORDERED: ceFAZolin 2,000 MG/15 ML IV PUSH IV ONE (08:56)
[2020-10-31] MEDS ORDERED: BUPIVACAINE 0.5 % 5 MG/1 ML MPF 30ML VIAL ONE (09:11)
[2020-10-31] MEDS ORDERED: LIDOCAINE 1% LOCAL 20 ML VIAL ONE (09:11)
[2020-10-31] MEDS ORDERED: LACTATED RINGER'S 1,000 ML IV SCH (09:15)
--- NOTE | 2020-10-31 10:09 | Post Operative Brief Note ---
Immediate Post Op Note v1 Date of Surgery October 31, 2020 Pre & Post Diagnosis Operation Date: 10/31/20 12:00 pre-op diagnosis: cardiomyopathy post-op diagnosis: cardiomyopathy I identified the patient and participated in the time-out.: Yes Procedure Operation Date: 10/31/20 12:00 punch biopsy abdominal fat pad Surgeon Skyler Orourke MD [employer]end [employer] Voucher Clerk cardiovascular surgical tech Estimated Blood Loss 3 Findings Consistent with Post-Op Diagnosis abdominal wall fat tissue, normal looking Fluids LR 30ml Specimens abdominal wall fat pad Anesthesia Type Local Disposition Accompanied Patient To Recovery: Yes
[2020-10-31] MEDS: PANTOprazole 40 MG TAB PO SCH (10:37)
[2020-10-31] MEDS: ATORVASTATIN 20 MG TAB PO SCH (10:37)
[2020-10-31] MEDS: ASPIRIN 81 MG ECTAB PO SCH (10:37)
[2020-10-31] MEDS: METOPROLOL SUCC 25MG EXT REL TAB PO SCH (10:38)
--- NOTE | 2020-10-31 11:42 | Operative Report (OR) ---
PREOPERATIVE DIAGNOSIS: Cardiomyopathy. POSTOPERATIVE DIAGNOSIS: Cardiomyopathy. PROCEDURE: A punch biopsy of abdominal wall fat pad. ANESTHESIA: Local. SURGEON: Skyler Orourke MD. FINDING: Normal looking abdominal wall fat tissue. ESTIMATED BLOOD LOSS: About 3 mL. COMPLICATIONS: None. INDICATIONS: This is an 85 years old gentleman who was diagnosed with cardiomyopathy and patient's c ardiologist recommended to do the biopsy of abdominal fat pad. I did talk to the patient about the b enefit, risk, alternate procedure. I indicated the risks may include, but not limited to, such as bl eeding, infection. The patient understands. He signed informed consent and I answered all questions . DETAILS OF PROCEDURE: After we identified the patient and verified the procedure, we brought the pat ient to the OR, put the patient on the supine position. The patient received SCD on bilateral legs t o prevent DVT. Also, patient received 2 grams Ancef IV for prophylactic antibiotic. The abdomen was appropriately draped in routine sterile fashion. At the same time, one nurse monitored the patient' s vital signs. After timeout, I injected the local anesthesia by using 1% lidocaine mixed with 0.5% Marcaine on the abdominal wall, infiltrated the skin, then I used a 6 mm punch biopsy and punctured t hrough the skin, deep to subcutaneous layer and we removed two pieces of the fat tissue. Then, the s ai was sent to pathology fresh. Hemostasis obtained. Then, using a 3-0 Vicryl, closed subcutan eous layer and the skin interruptedly. Then, we put the dressing on. The patient tolerated the proc edure well. All instrument, needle and sponge counts were correct x2 at the end of the case. Vannesa marcelino transferred to his room in stable condition. After the procedure, I did talk to the patient about the OR finding and the procedure we did, he understands. Job ID: [id number]
[2020-10-31] MEDS: FLUTICASONE PROPIONATE NA SPR 16 GM BTL SCH ×2 (12:22→20:00)
[2020-10-31 15:15] LABS: Kappa Lambda Ratio 2.47 (1.29-2.55)
--- NOTE | 2020-10-31 17:52 | Cardiology Progress Note ---
Date of Service October 31, 2020 Assessment & Plan (1) Atrial flutter: (2) Acute on chronic combined systolic and diastolic heart failure: (3) Pericardial effusion: (4) ROSA (acute kidney injury): Plan: At this point I think we will have to permit some degree of azotemia, and despite his creatinine being 2, I plan to reintroduce furosemide 20 mg daily tomorrow. The patient's spot serum immunofixation was equivocal. Based on the pathology report, it would appear that free kappa and lambda light chain assay would be more helpful than the total kappa and lambda light chain assay previously ordered, and therefore that sample be obtained tomorrow. It will take time to get the pathology back. He is tolerating transition to metoprolol succinate 75 mg daily well thus far. Given his elevated creatinine, and relative low blood pressure, he is not a candidate to receive an KEO inhibitor or an angiotensin receptor luana. An effort to assist the patient's generalized fatigue, and perhaps with help from the pericardial effusion standpoint, plan to start a course of low-dose prednisone 5 mg daily. If he does not tolerate this with regards to worsening tachycardia or insomnia, or fluid retention will discontinue. Continue subcutaneous heparin for DVT prophylaxis. Admission and Anticipated Discharge Date Admission Date: October 25, 2020 Subjective Patient tolerated abdominal fat pad biopsy earlier today well. He feels incrementally better overall compared to his initial presentation to the hospital. Ongoing tachycardia, likely atrial flutter with mildly low ventricular rate noted on telemetry, 100 to 110 bpm. Review of Systems Review of Systems: All systems reviewed & are unremarkable except as noted in HPI & below Patient notes edema of the lower extremities which is improved, generalized fatigue, trending toward mild improvement. Physical Exam Physical Exam: Temp Pulse Resp BP Pulse Ox 36.8 C 109 H 22 129/87 98 10/30/20 11:47 10/30/20 11:47 10/30/20 11:47 10/30/20 11:47 10/30/20 11:47 Constitutional: + ill appearing, + thin, + cachectic and cooperative; no acute distress Respiratory: Auscultation: + diminished lung sounds (decreased BS at the bases ); no crackles and no rales Cardiovascular: Rate/Rhythm: regular rate and + tachycardic Heart Sounds: no murmur Extremities: + edema (1+ bilateral lower extremity edema, chronic venous stasis changes) Gastrointestinal (Abdomen): normal bowel sounds, soft, nontender, no hepatosplenomegaly Neurologic: PERRL, EOMI, accommodation nl, no face palsy, no dysarthria Results & Data ([facility]) Vital Signs (Past 12 Hours) Vital Signs Temp Pulse Pulse Pulse Resp BP BP 10/31/20 15:28 36.4 C L 110 H 30 H 117/69 10/31/20 15:04 110 H 10/31/20 14:30 68 18 134/61 10/31/20 10:26 109 H 10/31/20 10:25 36.4 C L 109 H 18 116/76 10/31/20 10:00 109 H 28 H 124/81 10/31/20 09:55 110 H 24 120/79 10/31/20 09:50 110 H 28 H 121/83 10/31/20 09:45 110 H 28 H 121/82 10/31/20 09:03 36.5 C 110 H 22 122/81 10/31/20 07:11 36.4 C L 109 H 24 103/66 Pulse Ox 10/31/20 15:28 96 10/31/20 15:04 10/31/20 14:30 96 10/31/20 10:26 10/31/20 10:25 97 10/31/20 10:00 97 10/31/20 09:55 98 10/31/20 09:50 98 10/31/20 09:45 98 10/31/20 09:03 99 10/31/20 07:11 90 Laboratory Results Comprehensive Metabolic Panel 10/31/20 Range/Units 05:20 Sodium 139 (136-145) mmol/L Potassium 3.7 (3.5-5.1) mmol/L Chloride 107 (98-107) mmol/L Carbon Dioxide 26 (21-32) mmol/L BUN 60 H (7-18) mg/dl Creatinine 2.08 H (0.6-1.4) mg/dl Glucose 86 (70-99) mg/dl Calcium 9.3 (8.5-10.1) mg/dl Intake and Output 10/31/20 10/31/20 10/31/20 06:59 14:59 22:59 Intake Total 358.333 / 358.333 Output Total 200 / 300 150 / 150 Balance -200 / 25 208.333 / 208.333 Intake: IV 83.333 / 83.333 Lactated Ringer's 1,000 ml @ 50 83.333 / 83.333 mls/hr IV .Q20H [facility] Rx#: [id number] Oral 275 / 275 Output: Urine 200 / 300 150 / 150 Other: # Unmeasured Voids 1 1 Weight 72.7 kg Weight Measurement Method Standing Scale
[2020-10-31] MEDS: predniSONE 5 MG TAB PO SCH (20:00)
[2020-10-31] MEDS: HEPARIN SOD 5,000 UNIT/0.5 ML VIAL SQ SCH (20:00)
--- NOTE | 2020-11-01 00:01 | Hospitalist Progress Note ---
Date of Service October 31, 2020 Assessment & Plan (1) Acute on chronic combined systolic and diastolic heart failure: Plan: Progressive shortness of breath over the last 2 weeks with progressive lower extremity edema, known history of 35% ejection fraction per echo in September 2020, along with interval progression of small bilateral pleural effusions and mild interstitial pulmonary edema and BNP of 9200 supported the diagnosis of acute systolic heart failure. The patient does have a grade 3 diastolic dysfunction noted on previous echocardiogram. Echo performed this admission now reveals EF of 25 to 30% with a new small circumferential pericardial effusion. Patient is thought to have ROSA from cardiorenal syndrome with poor cardiac output and congestive hepatopathy. Creatinine is 2.0 and cardiology continuing diuresis. Investigation for possible infiltrative cardiomyopathy is underway. (2) Tachycardia: Plan: Thought to be in atrial flutter with rate of 100-110 per cardiology. No anticoa gulation 2/2 pericardial effusion and INR already elevated slightly. (3) ROSA (acute kidney injury): Plan: Nephrology following, creatinine improved. Lasix as tolerated. (4) CKD (chronic kidney disease), stage III: Plan: Baseline~1.3 Monitor renal functions, avoid nephrotoxic agents when possible (5) CAD (coronary artery disease): Plan: Continue medical management with aspirin 81, atorvastatin 20 mg daily, switched to Toprol XL. (6) Hypothyroidism: Plan: Continue levothyroxine, with ongoing tachycardia, repeat TSH is only slightly elevated from normal range. No adjustments to Synthroid. (7) Generalized weakness: Plan: No gross focal deficits on exam. PT/OT. (8) DVT prophylaxis: Plan: Heparin SQ Full Code Dispo-cont telemetry monitoring. Pallavi Vargas DO [facility] Hospitalist Admission and Anticipated Discharge Date Admission Date: October 25, 2020 Subjective feeling well no reports of issues wtih breathing or chest pain had abdominal biopsy Physical Exam Physical Exam: CONSTITUTIONAL: WNWD, vitals as above, generally well- appearing EYES: normal conjunctivae, no scleral icterus ENT: external ear and nose normal, MMM RESPIRATORY: CTAB, no rales or wheezes, normal respiratory effort CARDIOVASCULAR: tachy rate and rhythm, S1 and 2 heard without murmurs, gallops or rubs, no JVD, 1+ peripheral edema to mid shins bilaterally GASTROINTESTINAL: soft, nontender, nondistended. MUSCULOSKELETAL: strength 5/5 throughout, head is normocephalic and atraumatic SKIN: warm and dry NEUROLOGIC: CN 2-12 grossly intact, no sensory deficit, normal cognition, normal speech, no gross focal deficits. PSYCHIATRIC: alert cooperative Results & Data Results & Data ([facility]) Vital Signs (Past 12 Hours) Vital Signs Temp Pulse Pulse Resp BP BP Pulse Ox 10/31/20 23:33 36.4 C L 113 H 18 122/78 96 10/31/20 19:37 36.3 C L 107 H 18 126/81 91 10/31/20 15:28 36.4 C L 110 H 30 H 117/69 96 10/31/20 15:04 110 H 10/31/20 14:30 68 18 134/61 96 Laboratory Results [facility] 10/31/20 05:20 Sodium 139 Potassium 3.7 Chloride 107 Carbon Dioxide 26 BUN 60 H Creatinine 2.08 H Glucose 86 Calcium 9.3 Medications Administered Current Inpatient Medications Acetaminophen (Acetaminophen 325 Mg Tab) 325 mg PO Q6H PRN PRN Reason: Mild Pain Stop: 11/26/20 02:14 Aspirin (Aspirin 81 Mg Ectab) 81 mg PO DAILY [facility] Stop: 11/25/20 08:59 Last Admin: 10/31/20 10:37 Dose: 81 mg Documented by: Atorvastatin Calcium (Atorvastatin 20 Mg Tab) 20 mg PO DAILY [facility] Stop: 11/25/20 08:59 Last Admin: 10/31/20 10:37 Dose: 20 mg Documented by: Fluticasone Propionate (Fluticasone Propionate Na Spr 16 Gm Btl) 1 sprays NA BI D [facility] Stop: 11/30/20 10:59 Last Admin: 10/31/20 20:00 Dose: 1 sprays Documented by: Furosemide (Furosemide 20 Mg Tab) 20 mg PO QAM [facility] Stop: 12/01/20 08:59 Heparin Sodium (Porcine) (Heparin Sod 5,000 Unit/0.5 Ml Vial) 5,000 units SQ Q12 [facility] Stop: 11/24/20 21:28 Last Admin: 10/31/20 20:00 Dose: 5,000 units Documented by: Levothyroxine Sodium (Levothyroxine Sodium 50 Mcg Tablet) 50 mcg PO DAILYBB [facility] Stop: 11/25/20 06:29 Last Admin: 10/31/20 06:14 Dose: 50 mcg Documented by: Melatonin (Melatonin 3 Mg Tab) 3 mg PO HS PRN PRN Reason: Sleep Stop: 11/26/20 00:38 Last Admin: 10/27/20 01:26 Dose: 3 mg Documented by: Metoprolol Succinate (Metoprolol Succ 25mg Ext Rel Tab) 75 mg PO QAM [facility] Stop: 11/30/20 08:59 Last Admin: 10/31/20 10:38 Dose: 75 mg Documented by: Miscellaneous (Order Awaiting Action) 1 ea N/A QS [facility] Stop: 11/30/20 15:59 Last Admin: 10/31/20 17:25 Dose: Not Given Documented by: Pantoprazole Sodium (Pantoprazole 40 Mg Tab) 40 mg PO DAILY [facility] Stop: 11/25/20 08:59 Last Admin: 10/31/20 10:37 Dose: 40 mg Documented by: Polyethylene Glycol (Polyethylene (Miralax) 17 Gm Pack) 17 gm PO DAILY PRN PRN Reason: Constipation Stop: 11/24/20 21:28 Prednisone (Prednisone 5 Mg Tab) 5 mg PO DAILY [facility] Stop: 11/30/20 17:59 Last Admin: 10/31/20 20:00 Dose: 5 mg Documented by:
[2020-11-01] MEDS: LEVOTHYROXINE SODIUM 50 MCG TABLET PO SCH (05:33)
[2020-11-01] MEDS: ASPIRIN 81 MG ECTAB PO SCH (08:47)
[2020-11-01] MEDS: ATORVASTATIN 20 MG TAB PO SCH (08:47)
[2020-11-01] MEDS: FLUTICASONE PROPIONATE NA SPR 16 GM BTL SCH ×2 (08:47→20:46)
[2020-11-01] MEDS: HEPARIN SOD 5,000 UNIT/0.5 ML VIAL SQ SCH ×2 (08:49→20:50)
[2020-11-01] MEDS: METOPROLOL SUCC 25MG EXT REL TAB PO SCH (08:50)
[2020-11-01] MEDS: PANTOprazole 40 MG TAB PO SCH (08:51)
[2020-11-01] MEDS: predniSONE 5 MG TAB PO SCH (08:52)
[2020-11-01] MEDS ORDERED: FUROSEMIDE 40 MG TAB PO SCH (09:00)
[2020-11-01] MEDS ORDERED: FUROSEMIDE 20 MG TAB PO SCH (09:00)
[2020-11-01 09:11] LABS: Abnormal Protein Band 1 DNR mg/24 h (NONE DETECTED); Abnormal Protein Band 2 DNR mg/24 h (NONE DETECTED); Abnormal Protein Band 3 DNR mg/24 h (NONE DETECTED); Creatinine, 24 hr Urine 0.82 g/24 h (0.50-2.15); Protein, Urine 24 Hour 430 mg/24 h (<150); Ur Protein/Creatinine Rat mg/g 524 mg/g creat (< OR = 114); Urine Protein/Creatinine Ratio 0.524 (< OR = 0.114)
[2020-11-01 11:18] LABS: BUN Creatinine Ratio 30.3 (10-20); Calcium 9.5 mg/dl (8.5-10.1); Creatinine Clr Calc Pharmacy 27.1 ml/min; Est GFR (African American) 32.9 ml/min; Est GFR (Non-African American) 28.4 ml/min
--- NOTE | 2020-11-01 11:18 | Nephrology Progress Note ---
Date of Service November 01, 2020 Assessment & Plan Admission and Anticipated Discharge Date Admission Date: October 25, 2020 Subjective No new issues. making ?? amount of urine feels fine. No edema and no SOB. he is dressed up and ready to go home but no discharge written yet PHYSICAL EXAMINATION: GENERAL: Elderly white male who is not in any overt respiratory distress at this point of time, he was watching TV news appropriately and had normal speech and accurate interview. HEENT: Mucous membranes moist. NECK: No jugular venous distention. CHEST: Bilateral decreased breath sounds with occasional crackles and diminished lung sounds. CARDIOVASCULAR: Regular rate and rhythm, tachycardic. Soft systolic murmur heard. EXTREMITIES: Show no edema at this point in the ankles as well as upper thigh or in the presacral region. SKIN: Does show skin changes from chronic venous stasis. NEUROLOGIC: Awake, alert and oriented. Normal speech, normal affect. LABORATORY TEST: At the time of admission, his creatinine was pretty close to baseline at 1.59, but since then has steadily gone up to the 2 range ASSESSMENT AND PLAN: An 85-year-old male admitted with symptomatic congestive heart failure. The patient does have baseline chronic kidney disease with baseline creatinine around 1.3-1.5 range. Creatinine has gone up steadily in the last 4 days since admission for which I have been consulted. Acute renal failure on background chronic kidney disease III. The acute component is pretty minimal and it is not unexpected in the current setting. This is related with renal hemodynamic changes, does not have any blood and has about 1+ protein, so not really acting like a nephrotic syndrome or any types of glomerulonephritis. Some rise in creatinine with diuresis is to be expected at this age. But this is more likely his true creatinine than his admission one, which was misleading because of hemodilution. In any case, I expect his renal function to stabilize in the coming days. Continue IV Lasix as is being done today. If the creatinine is still rising tomorrow, we can cut back on the dose. Cardiology has started investigation for infiltrative cardiomyopathy at this point, which is appropriate. The results of that are still pending and will not be back for almost a week. Renal ultrasound was already done a few days ago and does not show any obstructive uropathy. Only about half gram proteinuria so very likelihood this is amylodiosis. Rec: 1 I dont think 20 daily of lasix is enough. Would need at least 40 and possibly more to maintain volume status at home. Will discuss with cardiology. Results & Data ([facility]) Vital Signs (Past 12 Hours) Vital Signs Temp Pulse Pulse Resp BP BP Pulse Ox 11/01/20 11:00 36.5 C 87 16 111/75 91 11/01/20 09:53 110 H 11/01/20 07:59 36.4 C L 110 H 18 108/67 90 11/01/20 04:00 36.4 C L 111 H 18 123/77 95 10/31/20 23:33 36.4 C L 113 H 18 122/78 96
--- NOTE | 2020-11-01 13:33 | Cardiology Progress Note ---
Date of Service November 01, 2020 Assessment & Plan (1) Acute on chronic combined systolic and diastolic heart failure: (2) Atrial flutter: (3) Pericardial effusion: (4) ROSA (acute kidney injury): Plan: Repeat limited echo given worsening symptoms. Serum and urine protein studies equivocal. Await pathology of abdominal fat pad biopsy. Creatine remains ~2, worse than prior baseline , but no worse that recent levels this stay. Uncertain if he has sinus tachycardia, but appears to be atrial flutter. Continue metoprolol succinate 75 mg daily. Avoiding anticoagulation given pericardial effusion. Diuretic dose limited by relative low BP and renal function. Will await echo results prior to adjusting dose. Has cardiac MRI scheduled at [facility] on 11/15, follow up visit at [facility] 11/22/20. SQ heparin for DVT prophylaxis. I called and updated pt's daughter, Becki, by phone. Case discussed with Dr Vargas . Admission and Anticipated Discharge Date Admission Date: October 25, 2020 Subjective Pt seen in followup. Frail in appearance. He had recently had an acute episode of shortness of breath, better without intervention. He looks exhausted. Physical Exam Physical Exam: Temp Pulse Resp BP Pulse Ox 36.5 C 87 16 111/75 91 11/01/20 11:00 11/01/20 11:00 11/01/20 11:00 11/01/20 11:00 11/01/20 11:00 Constitutional: + ill appearing and + cachectic Respiratory: mildly decreased BS at the bases Cardiovascular: Rate/Rhythm: regular rate and + tachycardic Heart Sounds: no murmur Extremities: no edema Gastrointestinal (Abdomen): normal bowel sounds, soft, nontender, no hepatosplenomegaly Neurologic: no focal deficits Results & Data ([facility]) Vital Signs (Past 12 Hours) Vital Signs Temp Pulse Pulse Resp BP BP Pulse Ox 11/01/20 11:00 36.5 C 87 16 111/75 91 11/01/20 09:53 110 H 11/01/20 07:59 36.4 C L 110 H 18 108/67 90 11/01/20 04:00 36.4 C L 111 H 18 123/77 95 Laboratory Results Comprehensive Metabolic Panel 11/01/20 Range/Units 05:41 Sodium 139 (136-145) mmol/L Potassium 4.0 (3.5-5.1) mmol/L Chloride 107 (98-107) mmol/L Carbon Dioxide 25 (21-32) mmol/L BUN 63 H (7-18) mg/dl Creatinine 2.08 H (0.6-1.4) mg/dl Glucose 86 (70-99) mg/dl Calcium 9.5 (8.5-10.1) mg/dl Intake and Output 10/31/20 11/01/20 11/01/20 22:59 06:59 14:59 Intake Total 150 / 508.333 Balance 150 / 358.333 Intake: Oral 150 / 425 Other: Other Intake Source SIPS # Unmeasured Voids 1 Weight 72.6 kg Weight Measurement Method Standing Scale
--- NOTE | 2020-11-01 14:22 | Hospitalist Progress Note ---
Date of Service November 01, 2020 Assessment & Plan (1) Acute on chronic combined systolic and diastolic heart failure: Plan: Progressive shortness of breath over the last 2 weeks with progressive lower extremity edema, known history of 35% ejection fraction per echo in September 2020, along with interval progression of small bilateral pleural effusions and mild interstitial pulmonary edema and BNP of 9200 supported the diagnosis of acute systolic heart failure. The patient does have a grade 3 diastolic dysfunction noted on previous echocardiogram. Echo performed this admission now reveals EF of 25 to 30% with a new small circumferential pericardial effusion. Patient is thought to have ROSA from cardiorenal syndrome with poor cardiac output and congestive hepatopathy. Creatinine is 2.0 and cardiology continuing diuresis. Investigation for possible infiltrative cardiomyopathy is underway. (2) Tachycardia: Plan: Thought to be in atrial flutter with rate of 100-110 per cardiology. No anticoa gulation 2/2 pericardial effusion and INR already elevated slightly. (3) ROSA (acute kidney injury): Plan: Nephrology following, creatinine improved. Lasix as tolerated. (4) CKD (chronic kidney disease), stage III: Plan: Baseline~1.3 Monitor renal functions, avoid nephrotoxic agents when possible (5) Pericardial effusion: Plan: started on low dose prednisone (6) CAD (coronary artery disease): Plan: Continue medical management with aspirin 81, atorvastatin 20 mg daily, switched to Toprol XL. (7) Hypothyroidism: Plan: Continue levothyroxine, with ongoing tachycardia, repeat TSH is only slightly elevated from normal range. No adjustments to Synthroid. (8) Generalized weakness: Plan: No gross focal deficits on exam. PT/OT. (9) DVT prophylaxis: Plan: Heparin SQ Full Code Dispo-cont telemetry monitoring. DO [facility] Hospitalist Admission and Anticipated Discharge Date Admission Date: October 25, 2020 Subjective feeling well gradually started feeling breathless as the day progressed. Repeat CXR reveals pulm edema and pleural effusions. Repeat echo does not show a worsening pericardial effusion. Denies chest pain Review of Systems Review of Systems: All systems were reviewed and negative except as indicated in HPI above. Physical Exam Physical Exam: CONSTITUTIONAL: WNWD, vitals as above, generally well- appearing EYES: normal conjunctivae, no scleral icterus ENT: external ear and nose normal, MMM RESPIRATORY: CTAB, no rales or wheezes, normal respiratory effort CARDIOVASCULAR: tachy rate and rhythm, S1 and 2 heard without murmurs, gallops or rubs, no JVD, no peripheral edema GASTROINTESTINAL: soft, nontender, nondistended. MUSCULOSKELETAL: strength 5/5 throughout, head is normocephalic and atraumatic SKIN: warm and dry NEUROLOGIC: CN 2-12 grossly intact, no sensory deficit, normal cognition, normal speech, no gross focal deficits. PSYCHIATRIC: alert cooperative Results & Data Results & Data ([facility]) Vital Signs (Past 12 Hours) Vital Signs Temp Pulse Pulse Resp BP BP Pulse Ox 11/01/20 11:00 36.5 C 87 16 111/75 91 11/01/20 09:53 110 H 11/01/20 07:59 36.4 C L 110 H 18 108/67 90 11/01/20 04:00 36.4 C L 111 H 18 123/77 95 Laboratory Results [facility] 11/01/20 05:41 Sodium 139 Potassium 4.0 Chloride 107 Carbon Dioxide 25 BUN 63 H Creatinine 2.08 H Glucose 86 Calcium 9.5 Medications Administered Current Inpatient Medications Acetaminophen (Acetaminophen 325 Mg Tab) 325 mg PO Q6H PRN PRN Reason: Mild Pain Stop: 11/26/20 02:14 Aspirin (Aspirin 81 Mg Ectab) 81 mg PO DAILY [facility] Stop: 11/25/20 08:59 Last Admin: 11/01/20 08:47 Dose: 81 mg Documented by: Atorvastatin Calcium (Atorvastatin 20 Mg Tab) 20 mg PO DAILY [facility] Stop: 11/25/20 08:59 Last Admin: 11/01/20 08:47 Dose: 20 mg Documented by: Fluticasone Propionate (Fluticasone Propionate Na Spr 16 Gm Btl) 1 sprays NA BID [facility] Stop: 11/30/20 10:59 Last Admin: 11/01/20 08:47 Dose: 1 sprays Documented by: Heparin Sodium (Porcine) (Heparin Sod 5,000 Unit/0.5 Ml Vial) 5,000 units SQ Q12 [facility] Stop: 11/24/20 21:28 Last Admin: 11/01/20 08:49 Dose: Not Given Documented by: Levothyroxine Sodium (Levothyroxine Sodium 50 Mcg Tablet) 50 mcg PO DAILYBB [facility] Stop: 11/25/20 06:29 Last Admin: 11/01/20 05:33 Dose: 50 mcg Documented by: Melatonin (Melatonin 3 Mg Tab) 3 mg PO HS PRN PRN Reason: Sleep Stop: 11/26/20 00:38 Last Admin: 10/27/20 01:26 Dose: 3 mg Documented by: Metoprolol Succinate (Metoprolol Succ 25mg Ext Rel Tab) 75 mg PO QAM [facility] Stop: 11/30/20 08:59 Last Admin: 11/01/20 08:50 Dose: 75 mg Documented by: Pantoprazole Sodium (Pantoprazole 40 Mg Tab) 40 mg PO DAILY [facility] Stop: 11/25/20 08:59 Last Admin: 11/01/20 08:51 Dose: 40 mg Documented by: Polyethylene Glycol (Polyethylene (Miralax) 17 Gm Pack) 17 gm PO DAILY PRN PRN Reason: Constipation Stop: 11/24/20 21:28 Prednisone (Prednisone 5 Mg Tab) 5 mg PO DAILY [facility] Stop: 11/30/20 17:59 Last Admin: 11/01/20 08:52 Dose: 5 mg Documented by:
[2020-11-01] MEDS ORDERED: FUROSEMIDE 40 MG in SYRINGE 0 ML IV SCH (16:30)
--- NOTE | 2020-11-01 16:34 | Communication Note ---
Date of Service: November 01, 2020 Echo reveals subtle improvement in the pericardial effusion (now small). The left pleural effusion size has increased. Plan: check CXR, furosemide 40 mg IV x 1 now, and daily. Consult pulmonary to consider thoracentesis.
--- NOTE | 2020-11-01 17:03 | XRay Report ---
XR chest 1V portable CLINICAL HISTORY: increased SOB COMPARISON STUDY: October 30, 2020 FINDINGS: No pneumothorax. Interval worsening/redistribution of bilateral pleural effusion, left more than right. Mild atelectas is is again seen at bilateral bases and slightly worsened since prior. Diffuse reticular prominence of pulmonary interstitium is slightly worsened since prior and seen pred ominantly at the peripheral distribution. Moderate cardiomegaly seen. No significant pulmonary vascular congestion.. Osseous structures: Degenerative changes of the spine. IMPRESSION: 1. Redemonstration of cardiomegaly and mild interval worsening/redistribution of bilateral pleural e ffusion as well as peripheral reticular opacities which might represent pulmonary edema. 2. Small atelectasis is seen at bilateral bases. ACT 112: Negative or not required by law. The above report was generated using voice recognition software. It may contain grammatical, syntax o r spelling errors. Electronically signed by: Laura Bae DO 11/01/2020 5:01 PM
--- NOTE | 2020-11-01 17:21 | Pulmonary Consultation ---
Date of Consultation November 01, 2020 Assessment & Plan (1) Acute on chronic combined systolic and diastolic CHF (congestive heart failure): 85-year-old male with a history of combined systolic and diastolic CHF (EF of 25 to 30%, grade 3 diastolic dysfunction) and CKD stage III in the hospital due to shortness of breath and acute on chronic CHF. Shortness of breath: Likely secondary to underlying acute on chronic combined systolic and diastolic CHF. Agree with diuresis. Cardiology and nephrology following. He does have a small bilateral pleural effusions noted on chest x- ray imaging. The left pleural effusion has increased in size. Recommend repeat chest x-ray in 1 to 2 days. If no significant decrease in size and he has persistent symptoms, we could consider thoracentesis to help improve symptoms. Work-up is underway for evaluation of infiltrative cardiomyopathy. Outpatient cardiac MRI is ordered by Dr. Giang. Diuresis may prove difficult given his underlying CKD. Suspect mild volume overload state due to recent surgery. We will follow along with you. Thank you for the consult. (2) SOB (shortness of breath): (3) ROSA (acute kidney injury): (4) Bilateral pleural effusion: History of Present Illness Reason for Consultation: Left pleural effusion due to CHF Attending Physician: Pallavi Vargas, History of Present Illness 85-year-old male with a history of cardiomyopathy (severe systolic CHF and diastolic CHF, CKD stage III, CAD and hypothyroidism who presented on 10/25/2020 due to shortness of breath. He has been undergoing evaluation for infiltrative cardiomyopathy. His symptoms are improving and he recently underwent an abdominal fat pad biopsy to evaluate for amyloidosis on 10/31/2020. Subsequently, he had increasing shortness of breath and there was concern for worsening pulmonary edema. Pulmonary was consulted to evaluate for possible thoracentesis of the left pleural effusion. Dr. Giang noted that on repeat echocardiogram he is enlarging left effusion. The patient is followed by nephrology as well. He is receiving Lasix. A small pericardial effusion was also seen on the echocardiogram from today. Notably, he has an EF of 25 to 30% with the severe concentric left ventricular hypertrophy. Patient notes decreased exercise tolerance. He does have paroxysmal nocturnal dyspnea and orthopnea. He feels little better after receiving Lasix today. Allergies Allergy/AdvReac Type Severity Reaction Status Date / Time Sulfa (Sulfonamide Allergy Intermediate RASH Unverified 10/26/20 18:42 Antibiotics) Home Medications Medication Instructions Recorded Confirmed Type aspirin 81 mg tablet,delayed 81 mg PO DAILY 10/25/20 10/25/20 History release atorvastatin 20 mg tablet 20 mg PO DAILY 10/25/20 10/25/20 History azelastine 137 mcg (0.1 %) nasal 1 - 2 spray INTRANASAL BID 10/25/20 10/25/20 History spray aerosol carvedilol 3.125 mg tablet 3.125 mg PO BID 10/25/20 10/25/20 History fluticasone propionate 50 1 - 2 spray INTRANASAL Q12H 10/25/20 10/25/20 History mcg/actuation nasal spray,suspension (Flonase Allergy Relief) furosemide 20 mg tablet 40 mg PO DAILY 10/25/20 10/25/20 History levothyroxine 50 mcg tablet 50 mcg PO DAILYBB 10/25/20 10/25/20 History omeprazole 20 mg tablet,delayed 20 mg PO DAILY 10/25/20 10/25/20 History release polyethylene glycol 3350 17 17 g PO DIRECTED PRN 10/25/20 10/25/20 History gram/dose oral powder (Miralax) Patient History Medical History (Updated 11/01/20 @ 17:39 by Ajay Schulte MD) Acute on chronic combined systolic and diastolic CHF (congestive heart failure) Bilateral pleural effusion CAD (coronary artery disease) CKD (chronic kidney disease), stage III Diastolic CHF, chronic Hypothyroidism Ischemic cardiomyopathy Surgical History History of cataract surgery History of inguinal hernia repair History of nasal septoplasty Family History Father Cancer Social History Smoking Status: Never smoker Hx Alcohol Use: Yes Alcohol Intake Frequency: Monthly or Less Hx Substance Use: No Preferred Language: Khmer Communication Ability: Effective 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 Patient is in no apparent distress. Patient is well-developed. Eyes: Pupils are equal round and reactive to light. Conjunctivae are normal. Anicteric sclera. Ears nose, mouth and throat: Normal posterior oropharynx. Uvula is midline. Neck: Trachea is midline. Visual inspection is normal. Respiratory: Crackles noted in the bilateral lower lobes. Cardiovascular: Regular rate and rhythm. No murmurs. No edema. Gastrointestinal: Normal bowel sounds, soft, nontender and nondistended. No hepatosplenomegaly noted. Musculoskeletal: No cyanosis. Patient is able to move all extremities. Strength is 5 out of 5 in the upper and lower extremities. Skin: No rashes, warm dry and intact. Neurologic: No obvious focal neurological deficits seen. Psychiatric: Alert and oriented x3 with a euthymic affect. Results & Data Results & Data ([facility]) Vital Signs (Past 12 Hours) Vital Signs Temp Pulse Pulse Pulse Resp BP BP 11/01/20 16:13 109 H 11/01/20 15:11 97.7 F 109 H 94 H 18 112/73 11/01/20 11:00 97.7 F 87 16 111/75 11/01/20 09:53 110 H 11/01/20 07:59 97.5 F L 110 H 18 108/67 Pulse Ox 11/01/20 16:13 11/01/20 15:11 94 11/01/20 11:00 91 11/01/20 09:53 11/01/20 07:59 90 Laboratory Results Vital signs, labs and imaging personally reviewed. PG Care Time/CCT Total # of Minutes Spent Total Time Spent with Patient: Total time spent is greater than 50% in coordination of care (as documented) at patient's floor/unit and/or counseling patient: Coding Level of Care Code 55773 Initial Inpt Care Lvl 3 Diagnoses Acute on chronic combined systolic and diastolic CHF (congestive heart failure) I50.43 SOB (shortness of breath) R06.02 ROSA (acute kidney injury) N17.9 Bilateral pleural effusion J90
[2020-11-02] MEDS: MELATONIN 3 MG TAB PO PRN (01:06)
[2020-11-02] MEDS: LEVOTHYROXINE SODIUM 50 MCG TABLET PO SCH (05:10)
[2020-11-02 07:14] LABS: BUN Creatinine Ratio 29.4 (10-20); Calcium 9.6 mg/dl (8.5-10.1); Creatinine Clr Calc Pharmacy 25.8 ml/min; Est GFR (African American) 30.7 ml/min; Est GFR (Non-African American) 26.5 ml/min
[2020-11-02] MEDS ORDERED: FUROSEMIDE 40 MG in SYRINGE 0 ML IV SCH (09:00)
[2020-11-02] MEDS ORDERED: FUROSEMIDE 40 MG TAB PO SCH (09:00)
[2020-11-02] MEDS: predniSONE 5 MG TAB PO SCH (09:32)
[2020-11-02] MEDS: METOPROLOL SUCC 25MG EXT REL TAB PO SCH (09:32)
[2020-11-02] MEDS: ATORVASTATIN 20 MG TAB PO SCH (09:32)
[2020-11-02] MEDS: ASPIRIN 81 MG ECTAB PO SCH (09:32)
[2020-11-02] MEDS: PANTOprazole 40 MG TAB PO SCH (09:32)
[2020-11-02] MEDS: FLUTICASONE PROPIONATE NA SPR 16 GM BTL SCH ×2 (09:33→22:18)
[2020-11-02] MEDS: HEPARIN SOD 5,000 UNIT/0.5 ML VIAL SQ SCH ×2 (09:33→22:18)
--- NOTE | 2020-11-02 12:37 | Pulmonology Progress Note ---
Date of Service November 02, 2020 Assessment & Plan (1) Acute on chronic combined systolic and diastolic CHF (congestive heart failure): Plan: 85-year-old male with a history of combined systolic and diastolic CHF (EF of 25 to 30%, grade 3 diastolic dysfunction) and CKD stage III in the hospital due to shortness of breath and acute on chronic CHF. Shortness of breath: Likely secondary to underlying acute on chronic combined systolic and diastolic CHF. Agree with diuresis. Cardiology and nephrology following. He does have a small bilateral pleural effusions noted on chest x- ray imaging. Recommend repeat chest x-ray in 1 to 2 days. His respiratory sy mptoms have improved today. No indication for thoracentesis at the moment. Work-up is underway for evaluation of infiltrative cardiomyopathy. Outpatient cardiac MRI is ordered by Dr. Giang. Please call with questions or if symptoms worsen. (2) SOB (shortness of breath): (3) ROSA (acute kidney injury): (4) Bilateral pleural effusion: Admission and Anticipated Discharge Date Admission Date: October 25, 2020 Subjective Patient seen and examined this morning. He is eager to go home. He feels that his breathing is slightly improved. He had poor sleep last night. He notes he has a chronic cough. He has not coughed much today. No chest pain. Review of Systems Review of Systems: All systems reviewed & are unremarkable except as noted in HPI & below Physical Exam Physical Exam: Constitutional: Patient appears to be of their stated age. Patient is in no apparent distress. Patient is well-developed. Eyes: Pupils are equal round and reactive to light. Conjunctivae are normal. Anicteric sclera. Ears nose, mouth and throat: Normal posterior oropharynx. Uvula is midline. Neck: Trachea is midline. Visual inspection is normal. Respiratory: Crackles improved from yesterday Cardiovascular: Regular rate and rhythm. No murmurs. No edema. Gastrointestinal: Normal bowel sounds, soft, nontender and nondistended. No hepatosplenomegaly noted. Musculoskeletal: No cyanosis. Patient is able to move all extremities. Strength is 5 out of 5 in the upper and lower extremities. Skin: No rashes, warm dry and intact. Neurologic: No obvious focal neurological deficits seen. Psychiatric: Alert and oriented x3 with a euthymic affect. Results & Data Results & Data ([facility]) Vital Signs (Past 12 Hours) Vital Signs Temp Pulse Resp BP BP Pulse Ox 11/02/20 11:23 96.6 F L 113 H 18 130/83 96 11/02/20 03:05 97.3 F L 112 H 20 118/79 96 Vital signs, labs and imaging personally reviewed PG Care Time/CCT Total # of Minutes Spent Total Time Spent with Patient: Total time spent is greater than 50% in coordination of care (as documented) at patient's floor/unit and/or counseling patient: Coding Level of Care Code 93289 Subseq Hosp Care Lvl 2 Diagnoses Acute on chronic combined systolic and diastolic CHF (congestive heart failure) I50.43 SOB (shortness of breath) R06.02 ROSA (acute kidney injury) N17.9 Bilateral pleural effusion J90
--- NOTE | 2020-11-02 13:13 | Hospitalist Progress Note ---
Date of Service November 02, 2020 Assessment & Plan (1) Acute on chronic combined systolic and diastolic heart failure: Plan: Progressive shortness of breath over the last 2 weeks with progressive lower extremity edema, known history of 35% ejection fraction per echo in September 2020, along with interval progression of small bilateral pleural effusions and mild interstitial pulmonary edema and BNP of 9200 supported the diagnosis of acute systolic heart failure. The patient does have a grade 3 diastolic dysfunction noted on previous echocardiogram. Echo performed this admission now reveals EF of 25 to 30% with a new small circumferential pericardial effusion. He was started on low dose prednisone for this. With acute worsening of SOB on 11/01 the echo was repeated and there is no worsening of the pericardial effusion, however, worsening pulmonary edema with pleural effusions are seen. Pulm was consulted and is recommending continued medical therapy with diuresis. Nephrology is following and Lasix infusion is being considered. Elevated creat to 2/2 after one dose of Lasix yesterday afternoon. Investigation for possible infiltrative cardiomyopathy is underway with pending pathology from recent abdominal fat pad biopsy performed this admission. (2) Tachycardia: Plan: Thought to be in atrial flutter with rate of 100-110 per cardiology. No anticoagulation 2/2 pericardial effusion and INR already elevated slightly. Cont Toprol 75mg daily. (3) ROSA (acute kidney injury): Plan: Nephrology following, creatinine slightly worse today 2/2 after Lasix administration yesterday. Nephro considering a Lasix drip. (4) CKD (chronic kidney disease), stage III: Plan: Baseline~1.3 Monitor renal functions, avoid nephrotoxic agents when possible (5) Pericardial effusion: Plan: started on low dose prednisone this admission. Tolerating this without issue. (6) CAD (coronary artery disease): Plan: Continue medical management with aspirin 81, atorvastatin 20 mg daily, switched to Toprol XL. (7) Hypothyroidism: Plan: Continue levothyroxine, with ongoing tachycardia, repeat TSH is only slightly elevated from normal range. No adjustments to Synthroid. (8) Generalized weakness: Plan: No gross focal deficits on exam. PT/OT. (9) DVT prophylaxis: Plan: Heparin SQ Full Code Dispo-cont telemetry monitoring. Uncertain plans for discharge home but he needs to be breathing and feeling better than he is now. Pallavi Vargas DO [facility] Hospitalist Admission and Anticipated Discharge Date Admission Date: October 25, 2020 Subjective feeling well Reports feeling less breathless today although clearly he is short of breath at rest. Repeat CXR reveals pulm edema and pleural effusions and pulm saw him, recommend continue with medical therapy at this time. Repeat echo does not show a worsening pericardial effusion. Cont low dose prednisone. Denies chest pain Tolerating PO Review of Systems Review of Systems: All systems were reviewed and negative except as indicated in HPI above. Physical Exam Physical Exam: CONSTITUTIONAL: WNWD, vitals as above, generally well- appearing EYES: normal conjunctivae, no scleral icterus ENT: external ear and nose normal, MMM RESPIRATORY: CTAB, no rales or wheezes, normal respiratory effort CARDIOVASCULAR: tachy rate and rhythm, S1 and 2 heard without murmurs, gallops or rubs, no JVD, 1+ pitting edema bilateral lower extremities GASTROINTESTINAL: soft, nontender, nondistended. MUSCULOSKELETAL: strength 5/5 throughout, head is normocephalic and atraumatic SKIN: warm and dry NEUROLOGIC: CN 2-12 grossly intact, no sensory deficit, normal cognition, normal speech, no gross focal deficits. PSYCHIATRIC: alert cooperative Results & Data Results & Data ([facility]) Vital Signs (Past 12 Hours) Vital Signs Temp Pulse Resp BP BP Pulse Ox 11/02/20 11:23 35.9 C L 113 H 18 130/83 96 11/02/20 03:05 36.3 C L 112 H 20 118/79 96 Laboratory Results [facility] 11/02/20 06:32 Sodium 139 Potassium 4.0 Chloride 108 H Carbon Dioxide 22 BUN 65 H Creatinine 2.20 H Glucose 94 Calcium 9.6 Medications Administered Current Inpatient Medications Acetaminophen (Acetaminophen 325 Mg Tab) 325 mg PO Q6H PRN PRN Reason: Mild Pain Stop: 11/26/20 02:14 Aspirin (Aspirin 81 Mg Ectab) 81 mg PO DAILY BRANDT Stop: 11/25/20 08:59 Last Admin: 11/02/20 09:32 Dose: 81 mg Documented by: Atorvastatin Calcium (Atorvastatin 20 Mg Tab) 20 mg PO DAILY BRANDT Stop: 11/25/20 08:59 Last Admin: 11/02/20 09:32 Dose: 20 mg Documented by: Fluticasone Propionate (Fluticasone Propionate Na Spr 16 Gm Btl) 1 sprays NA BID BRANDT Stop: 11/30/20 10:59 Last Admin: 11/02/20 09:33 Dose: 1 sprays Documented by: Heparin Sodium (Porcine) (Heparin Sod 5,000 Unit/0.5 Ml Vial) 5,000 units SQ Q12 BRANDT Stop: 11/24/20 21:28 Last Admin: 11/02/20 09:33 Dose: 5,000 units Documented by: Furosemide 40 mg/ Syringe 4 mls @ 4 mls/min IV DAILY BRANDT Stop: 12/02/20 08:59 Levothyroxine Sodium (Levothyroxine Sodium 50 Mcg Tablet) 50 mcg PO DAILYBB BRANDT Stop: 11/25/20 06:29 Last Admin: 11/02/20 05:10 Dose: 50 mcg Documented by: Melatonin (Melatonin 3 Mg Tab) 3 mg PO HS PRN PRN Reason: Sleep Stop: 11/26/20 00:38 Last Admin: 11/02/20 01:06 Dose: 3 mg Documented by: Metoprolol Succinate (Metoprolol Succ 25mg Ext Rel Tab) 75 mg PO QAM BRANDT Stop: 11/30/20 08:59 Last Admin: 11/02/20 09:32 Dose: 75 mg Documented by: Pantoprazole Sodium (Pantoprazole 40 Mg Tab) 40 mg PO DAILY BRANDT Stop: 11/25/20 08:59 Last Admin: 11/02/20 09:32 Dose: 40 mg Documented by: Polyethylene Glycol (Polyethylene (Miralax) 17 Gm Pack) 17 gm PO DAILY PRN PRN Reason: Constipation Stop: 11/24/20 21:28 Last Admin: 11/02/20 01:06 Dose: 17 gm Documented by: Prednisone (Prednisone 5 Mg Tab) 5 mg PO DAILY BRANDT Stop: 11/30/20 17:59 Last Admin: 11/02/20 09:32 Dose: 5 mg Documented by:
--- NOTE | 2020-11-02 13:18 | Nephrology Progress Note ---
Date of Service November 02, 2020 Assessment & Plan (1) ROSA (acute kidney injury): Plan: Patient with acute kidney injury likely cardiorenal syndrome. Creatinine uptrending to 2.2 from two yesterday. Chest x-ray showing cardiomegaly, pulmonary edema and bilateral pleural effusions. We will bolus him with 40 mg of IV Lasix and start Lasix drip at 10 mg/h. -Monitor input output, goal is net negative after 1 L daily -Avoid nephrotoxins (2) Acute on chronic combined systolic and diastolic CHF (congestive heart failure): Plan: Patient with CHF. He has severe concentric LVH on echo and mild pericardial effusion. Will attempt diuresis today. -Maintain the fluid limit of 1.2 L daily -2 g sodium diet -Daily standing weight if able (3) Atrial flutter: Plan: Continue metoprolol 75 mg daily per cardiology. Patient still tachycardic. Admission and Anticipated Discharge Date Admission Date: October 25, 2020 Subjective Seen in follow-up for acute kidney injury and CHF. Patient requesting to go home. He continues have low blood pressures and tachycardia. Patient is oliguric and has been net positive. Chest x-ray showing bilateral pleural effusions. He also has mild pericardial effusion on echo. Review of Systems Review of Systems: All other systems were reviewed and negative except as noted in HPI Physical Exam Physical Exam: General exam: Appears comfortable, mild respiratory distress HEENT: Pupils are equal and reactive to light Neck: No JVD, neck is supple trachea is midline Respiratory system: Crackles in the bases bilaterally. Gastrointestinal: Abdomen is soft, non distended, non tender, bowel sounds are present CVS: Regular rate and rhythm. No murmurs, rubs or gallops Musculoskeletal: No joint or muscle tenderness Extremities: Non tender, no edema, peripheral pulses are present Neuro: Oriented, no tremors, no focal neurological deficits Skin: No rashes Results & Data ([facility]) Vital Signs (Past 12 Hours) Vital Signs Temp Pulse Resp BP BP Pulse Ox 11/02/20 11:23 35.9 C L 113 H 18 130/83 96 11/02/20 03:05 36.3 C L 112 H 20 118/79 96 Laboratory Results 11/02/20 06:32
[2020-11-02] MEDS ORDERED: FUROSEMIDE 40 MG in SYRINGE 0 ML IV ONE (13:30)
[2020-11-02] MEDS: FUROSEMIDE 100 MG in DEXTROSE 5% 90 ML IV SCH ×2 (13:40→22:22)
[2020-11-02] MEDS ORDERED: ACETAMINOPHEN 500 MG TAB PO ONE (14:45)
[2020-11-02] MEDS: MAGNESIUM OXIDE 400 MG TAB PO SCH (17:05)
--- NOTE | 2020-11-02 19:23 | Cardiology Progress Note ---
Date of Service November 02, 2020 Assessment & Plan (1) Acute on chronic combined systolic and diastolic heart failure: (2) Atrial flutter: (3) Pericardial effusion: (4) ROSA (acute kidney injury): Plan: IV Lasix infusion initiated by nephrology. Follow GFR, electrolytes, and fluid balance. Await pathology of abdominal fat pad biopsy. Telemetry reveals atrial flutter at a rate of 100 to 110 bpm. Avoiding anticoagulation given pericardial effusion. Discontinue metoprolol succinate in favor of metoprolol tartrate 50 mg twice daily for ease of titration. Cardiac MRI scheduled at [facility] on 11/15, follow up visit at [facility] 11/22/20. SQ heparin for DVT prophylaxis. Admission and Anticipated Discharge Date Admission Date: October 25, 2020 Subjective Patient seen and examined at the bedside. Abdominal fat pad biopsy pending. Reports palpitations which have improved over the past 24 hours. IV Lasix infusion initiated by nephrology. Serum creatinine trending upward to 2.2 today. Telemetry reveals atrial flutter with heart rate ranging from 100-110 bpm. Review of Systems Review of Systems: All systems reviewed & are unremarkable except as noted in Subjective Physical Exam Constitutional: + ill appearing and + cachectic Respiratory: Auscultation: + diminished lung sounds (Bilateral bases) and + rales (Bilateral bases); no wheezes Cardiovascular: Rate/Rhythm: regular rhythm and + tachycardic Heart Sounds: normal S1 and normal S2; no murmur Gastrointestinal (Abdomen): Inspection/Auscultation: abdomen normal to inspection and normal bowel sounds; abdomen not distended Percussion/Palpation: abdomen soft; abdomen nontender, no guarding and abdomen not rigid Neurologic: CN's II-XI intact bilaterally and moves all extremities; no focal motor deficits Motor/Sensory: no tremor Psychiatric: A+Ox3, euthymic affect Results & Data ([facility]) Vital Signs (Past 12 Hours) Vital Signs Temp Pulse Resp BP Pulse Ox 11/02/20 14:35 36.5 C 111 H 18 120/79 94 11/02/20 11:23 35.9 C L 113 H 18 130/83 96
[2020-11-02] MEDS: METOPROLOL TARTRATE 50 MG TAB PO SCH (22:18)
[2020-11-03] MEDS: LEVOTHYROXINE SODIUM 50 MCG TABLET PO SCH (05:45)
[2020-11-03 06:52] LABS: BUN Creatinine Ratio 22.4 (10-20); Calcium 9.7 mg/dl (8.5-10.1); Creatinine Clr Calc Pharmacy 19.8 ml/min; Est GFR (African American) 22.8 ml/min; Est GFR (Non-African American) 19.6 ml/min; Potassium 3.9 mmol/L (3.5-5.1)
[2020-11-03] MEDS: FUROSEMIDE 100 MG in DEXTROSE 5% 90 ML IV SCH (08:54)
[2020-11-03] MEDS: ASPIRIN 81 MG ECTAB PO SCH (08:55)
[2020-11-03] MEDS: predniSONE 5 MG TAB PO SCH (08:55)
[2020-11-03] MEDS: PANTOprazole 40 MG TAB PO SCH (08:56)
[2020-11-03] MEDS: ATORVASTATIN 20 MG TAB PO SCH (08:56)
[2020-11-03] MEDS: MAGNESIUM OXIDE 400 MG TAB PO SCH (08:56)
[2020-11-03] MEDS: HEPARIN SOD 5,000 UNIT/0.5 ML VIAL SQ SCH ×2 (08:57→21:06)
[2020-11-03] MEDS: METOPROLOL TARTRATE 50 MG TAB PO SCH ×2 (08:57→21:05)
[2020-11-03] MEDS: FLUTICASONE PROPIONATE NA SPR 16 GM BTL SCH ×2 (08:57→21:06)
--- NOTE | 2020-11-03 11:51 | Nephrology Progress Note ---
Date of Service November 03, 2020 Assessment & Plan (1) ROSA (acute kidney injury): Plan: Patient with acute kidney injury likely cardiorenal syndrome. Creatinine uptrending to 2.8 from 2.2 yesterday. Chest x-ray showing cardiomegaly, pulmonary edema and bilateral pleural effusions. -Stop lasix drip. We can resume diuretics tomorrow. he will likely need torsemide 20-40mg daily -Monitor input output -Avoid nephrotoxins (2) Acute on chronic combined systolic and diastolic CHF (congestive heart failure): Plan: Patient with CHF. He has severe concentric LVH on echo and mild pericardial effusion. Patient was slightly negative past 24 hours. If feels better today. -Maintain the fluid limit of 1.2 L daily -2 g sodium diet -Daily standing weight if able (3) Atrial flutter: Plan: Continue metoprolol 75 mg daily per cardiology. Patient still tachycardic. Admission and Anticipated Discharge Date Admission Date: October 25, 2020 Subjective Seen in follow-up for acute kidney injury on CKD. He feels better today. Less short of breath. He is making urine. Creatinine uptrending. Review of Systems Review of Systems: All other systems were reviewed and negative except as noted in HPI Physical Exam Physical Exam: General exam: Appears comfortable, no acute distress HEENT: Pupils are equal and reactive to light Neck: No JVD, neck is supple trachea is midline Respiratory system: Clear breath sounds bilaterally. Gastrointestinal: Abdomen is soft, non distended, non tender, bowel sounds are present CVS: Regular rate and rhythm. No murmurs, rubs or gallops Musculoskeletal: No joint or muscle tenderness Extremities: Non tender, 1+ edema, peripheral pulses are present Neuro: Oriented, no tremors, no focal neurological deficits Skin: No rashes Results & Data ([facility]) Vital Signs (Past 12 Hours) Vital Signs Temp Pulse Pulse Resp BP BP Pulse Ox 11/03/20 11:04 36.2 C L 101 H 18 117/71 93 11/03/20 07:11 36.2 C L 123 H 16 104/70 95 11/03/20 03:05 36.2 C L 100 H 20 113/71 93 11/03/20 01:53 106 H Laboratory Results 11/03/20 05:50
--- NOTE | 2020-11-03 13:32 | Cardiology Progress Note ---
Date of Service November 03, 2020 Assessment & Plan (1) Acute on chronic combined systolic and diastolic heart failure: (2) Atrial flutter: (3) Pericardial effusion: (4) ROSA (acute kidney injury): Plan: IV Lasix infusion discontinued by nephrology due to elevated creatinine. Repeat basic metabolic panel in a.m. Consider transition to torsemide in a.m. Await pathology of abdominal fat pad biopsy. Telemetry reveals atrial flutter at a rate of 100 to 130 bpm with activity. Avoiding anticoagulation given pericardial effusion. Toprol-XL 75 mg daily transitioned to metoprolol tartrate 50 mg twice daily 11/02/2020. Consider titration to 50 mg 3 times daily pending clinical response. Cardiac MRI scheduled at [facility] on 11/15, follow up visit at [facility] 11/22/20. SQ heparin for DVT prophylaxis. Admission and Anticipated Discharge Date Admission Date: October 25, 2020 Subjective Patient seen and examined at the bedside. Resting comfortably. Denies chest pain or palpitations. Shortness of breath unchanged. Urine output negative approximately 500 cc with Lasix infusion, however, creatinine has trended upward from 2.2-2.8. Transition to metoprolol tartrate 50 mg twice daily last evening. Heart rate remains elevated. Telemetry reveals atrial fibrillation with a heart rate ranging from 100-to 130 bpm with activity. Due to elevated creatinine, Lasix infusion discontinued by nephrology. Review of Systems Review of Systems: All systems reviewed & are unremarkable except as noted in Subjective Physical Exam Constitutional: + ill appearing and + cachectic Respiratory: Auscultation: + diminished lung sounds (Bilateral bases) and + rales (Bilateral bases); no wheezes Cardiovascular: Rate/Rhythm: regular rhythm and + tachycardic Heart Sounds: normal S1 and normal S2; no murmur Gastrointestinal (Abdomen): Inspection/Auscultation: abdomen normal to inspection and normal bowel sounds; abdomen not distended Percussion/Palpation: abdomen soft; abdomen nontender, no guarding and abdomen not rigid Neurologic: CN's II-XI intact bilaterally and moves all extremities; no focal motor deficits Motor/Sensory: no tremor Psychiatric: A+Ox3, euthymic affect Results & Data ([facility]) Vital Signs (Past 12 Hours) Vital Signs Temp Pulse Pulse Resp BP BP Pulse Ox 11/03/20 11:04 36.2 C L 101 H 18 117/71 93 11/03/20 07:11 36.2 C L 123 H 16 104/70 95 11/03/20 03:05 36.2 C L 100 H 20 113/71 93 11/03/20 01:53 106 H
--- NOTE | 2020-11-03 15:38 | Hospitalist Progress Note ---
Date of Service November 03, 2020 Assessment & Plan (1) Acute on chronic combined systolic and diastolic heart failure: Plan: Progressive shortness of breath over the last 2 weeks with progressive lower extremity edema, known history of 35% ejection fraction per echo in September 2020, along with interval progression of small bilateral pleural effusions and mild interstitial pulmonary edema and BNP of 9200 supported the diagnosis of acute systolic heart failure. The patient does have a grade 3 diastolic dysfunction noted on previous echocardiogram. Echo performed this admission now reveals EF of 25 to 30% with a new small circumferential pericardial effusion. He was started on low dose prednisone for this. With acute worsening of SOB on 11/01 the echo was repeated and there is no worsening of the pericardial effusion, however, worsening pulmonary edema with pleural effusions are seen. Pulm was consulted and is recommending continued medical therapy with diuresis. Nephrology is following and Lasix infusion was started 11/02 in the afternoon, however, it was stopped this morning due to a rising creatinine. Consider resumption of diuretics in am using torsemide. BMP in am. Cont low salt diet and add 1.2mL fluid restriction. Investigation for possible infiltrative cardiomyopathy is underway with pending pathology from recent abdominal fat pad biopsy performed this admission. (2) Tachycardia: Plan: Thought to be in atrial flutter with rate of 100-110 per cardiology. No anticoagulation 2/2 pericardial effusion and INR already elevated slightly. Cont beta luana therapy, switched to short-acting metoprolol, which is improving his heart rate. (3) ROSA (acute kidney injury): Plan: Nephrology following, creatinine slightly worse today 2.8. Lasix infusion held and repeat BMP in am. (4) CKD (chronic kidney disease), stage III: Plan: Baseline~1.3 Monitor renal functions, avoid nephrotoxic agents when possible (5) Pericardial effusion: Plan: started on low dose prednisone this admission. Steroids as well as hospitalization may be adding to intermittent confusion. Cont for now and monitor closely. (6) CAD (coronary artery disease): Plan: Continue medical management with aspirin 81, atorvastatin 20 mg daily, Lopressor. (7) Hypothyroidism: Plan: Continue levothyroxine, with ongoing tachycardia, repeat TSH is only slightly elevated from normal range. No adjustments to Synthroid. (8) Generalized weakness: Plan: No gross focal deficits on exam. PT/OT. (9) DVT prophylaxis: Plan: Heparin SQ Full Code Dispo-cont telemetry monitoring. Once optimized consider SNF in light of intermittent confusion demonstrated during this hospital stay. Will discuss options with case management on Wednesday. [facility] Admission and Anticipated Discharge Date Admission Date: October 25, 2020 Subjective 85 o M admitted for SOB and tachycardia feels less breathless today and looks better reports some nausea this morning but he is feeling better and is eating his lunch without issue. denies any pain per nurse he is ambulating independently but is impulsive. Report was that he self-removed his IV lines yesterday when he went to get up. I called his daughter and gave her an update by phone. She states that he is more confused in the hospital than his baseline and expressed her concern about him being home alone. Review of Systems Review of Systems: All systems were reviewed and negative except as indicated in HPI above. Physical Exam Physical Exam: CONSTITUTIONAL: WNWD, vitals as above, generally well- appearing EYES: normal conjunctivae, no scleral icterus ENT: external ear and nose normal, MMM RESPIRATORY: CTAB, no rales or wheezes, normal respiratory effort CARDIOVASCULAR: reg rate and rhythm, S1 and 2 heard without murmurs, gallops or rubs, no JVD, 2+ pitting edema bilateral lower extremities to the mid-shins GASTROINTESTINAL: soft, nontender, nondistended. MUSCULOSKELETAL: strength 5/5 throughout, head is normocephalic and atraumatic SKIN: warm and dry NEUROLOGIC: CN 2-12 grossly intact, no sensory deficit, normal cognition, normal speech, no gross focal deficits. PSYCHIATRIC: alert cooperative Results & Data Results & Data ([facility]) Vital Signs (Past 12 Hours) Vital Signs Temp Pulse Resp BP BP Pulse Ox 11/03/20 15:06 36.2 C L 96 H 16 109/64 97 11/03/20 11:04 36.2 C L 101 H 18 117/71 93 11/03/20 07:11 36.2 C L 123 H 16 104/70 95 Laboratory Results [facility] 11/03/20 05:50 Sodium 135 L Potassium 3.9 Chloride 103 Carbon Dioxide 22 BUN 63 H Creatinine 2.82 H D Glucose 107 H Calcium 9.7 Medications Administered Current Inpatient Medications Acetaminophen (Acetaminophen 325 Mg Tab) 325 mg PO Q6H PRN PRN Reason: Mild Pain Stop: 11/26/20 02:14 Aspirin (Aspirin 81 Mg Ectab) 81 mg PO DAILY BRANDT Stop: 11/25/20 08:59 Last Admin: 11/03/20 08:55 Dose: 81 mg Documented by: Atorvastatin Calcium (Atorvastatin 20 Mg Tab) 20 mg PO DAILY BRANDT Stop: 11/25/20 08:59 Last Admin: 11/03/20 08:56 Dose: 20 mg Documented by: Fluticasone Propionate (Fluticasone Propionate Na Spr 16 Gm Btl) 1 sprays NA BID BRANDT Stop: 11/30/20 10:59 Last Admin: 11/03/20 08:57 Dose: 1 sprays Documented by: Heparin Sodium (Porcine) (Heparin Sod 5,000 Unit/0.5 Ml Vial) 5,000 units SQ Q12 BRANDT Stop: 11/24/20 21:28 Last Admin: 11/03/20 08:57 Dose: 5,000 units Documented by: Furosemide 40 mg/ Syringe 4 mls @ 4 mls/min IV DAILY BRANDT Stop: 12/02/20 08:59 Levothyroxine Sodium (Levothyroxine Sodium 50 Mcg Tablet) 50 mcg PO DAILYBB BRANDT Stop: 11/25/20 06:29 Last Admin: 11/03/20 05:45 Dose: 50 mcg Documented by: Magnesium Oxide (Magnesium Oxide 400 Mg Tab) 400 mg PO QAM BRANDT Stop: 12/02/20 14:44 Last Admin: 11/03/20 08:56 Dose: 400 mg Documented by: Melatonin (Melatonin 3 Mg Tab) 3 mg PO HS PRN PRN Reason: Sleep Stop: 11/26/20 00:38 Last Admin: 11/02/20 01:06 Dose: 3 mg Documented by: Metoprolol Tartrate (Metoprolol Tartrate 50 Mg Tab) 50 mg PO BID BRANDT Stop: 12/02/20 20:59 Last Admin: 11/03/20 08:57 Dose: 50 mg Documented by: Pantoprazole Sodium (Pantoprazole 40 Mg Tab) 40 mg PO DAILY BRANDT Stop: 11/25/20 08:59 Last Admin: 11/03/20 08:56 Dose: 40 mg Documented by: Polyethylene Glycol (Polyethylene (Miralax) 17 Gm Pack) 17 gm PO DAILY PRN PRN Reason: Constipation Stop: 11/24/20 21:28 Last Admin: 11/02/20 01:06 Dose: 17 gm Documented by: Prednisone (Prednisone 5 Mg Tab) 5 mg PO DAILY BRANDT Stop: 11/30/20 17:59 Last Admin: 11/03/20 08:55 Dose: 5 mg Documented by:
[2020-11-04] MEDS: LEVOTHYROXINE SODIUM 50 MCG TABLET PO SCH (05:49)
[2020-11-04] MEDS: FLUTICASONE PROPIONATE NA SPR 16 GM BTL SCH ×2 (08:06→20:57)
[2020-11-04] MEDS: ASPIRIN 81 MG ECTAB PO SCH (08:06)
[2020-11-04] MEDS: METOPROLOL TARTRATE 50 MG TAB PO SCH (08:06)
[2020-11-04] MEDS: PANTOprazole 40 MG TAB PO SCH (08:07)
[2020-11-04] MEDS: ATORVASTATIN 20 MG TAB PO SCH (08:07)
[2020-11-04] MEDS: HEPARIN SOD 5,000 UNIT/0.5 ML VIAL SQ SCH ×2 (08:07→20:58)
[2020-11-04] MEDS: predniSONE 5 MG TAB PO SCH (08:07)
[2020-11-04] MEDS: MAGNESIUM OXIDE 400 MG TAB PO SCH (08:07)
[2020-11-04 09:01] LABS: BUN Creatinine Ratio 23.6 (10-20); Calcium 9.8 mg/dl (8.5-10.1); Creatinine Clr Calc Pharmacy 20.6 ml/min; Est GFR (African American) 24.1 ml/min; Est GFR (Non-African American) 20.8 ml/min
--- NOTE | 2020-11-04 09:24 | Nephrology Progress Note ---
Date of Service November 04, 2020 Assessment & Plan Admission and Anticipated Discharge Date Admission Date: October 25, 2020 Subjective (1) ROSA (acute kidney injury): Plan: Patient with acute kidney injury likely cardiorenal syndrome. Creatinine uptrending to 2.8 but then down a bit today 2.6 . -Continue Diuretics inpt and outpt--was on Lasix 40 daily before. Can be resumed same dose for outpt also. -Monitor input output -Avoid nephrotoxins (2) Acute on chronic combined systolic and diastolic CHF (congestive heart failure): Plan: Patient with CHF. He has severe concentric LVH on echo and mild pericardial effusion. -Maintain the fluid limit of 1.2 L daily -2 g sodium diet -Daily standing weight if able Subjective Seen in follow-up for acute kidney injury on CKD. He feels ??better today. Less short of breath. He is making urine. Creatinine down trending today Review of Systems Review of Systems: All other systems were reviewed and negative except as noted in HPI Physical Exam Physical Exam: General exam: Appears comfortable, no acute distress HEENT: Pupils are equal and reactive to light Neck: No JVD, neck is supple trachea is midline Respiratory system: Clear breath sounds bilaterally. Gastrointestinal: Abdomen is soft, non distended, non tender, bowel sounds are present CVS: Regular rate and rhythm. No murmurs, rubs or gallops Musculoskeletal: No joint or muscle tenderness Extremities: Non tender, Trace edema, peripheral pulses are present Neuro: Oriented, no tremors, no focal neurological deficits Skin: No rashes Results & Data ([facility]) Vital Signs (Past 12 Hours) Vital Signs Temp Pulse Pulse Resp BP BP Pulse Ox 11/04/20 07:49 36.6 C 107 H 20 123/77 96 11/04/20 03:20 36.7 C 75 20 107/66 92 11/03/20 23:10 36.6 C 101 H 20 119/71 95 11/03/20 22:18 99 H
[2020-11-04] MEDS: FUROSEMIDE 40 MG TAB PO SCH (10:31)
[2020-11-04 11:21] LABS: Free Kappa 52.2 mg/L (3.3-19.4); Free Kappa/Lambda Ratio 2.65 (0.26-1.65); Free Lambda 19.7 mg/L (5.7-26.3)
--- NOTE | 2020-11-04 12:09 | Cardiology Progress Note ---
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 He has responded to diuretics and will be switched to oral (2) Atrial flutter: Plan: Rate still elevated will increase metoprolol tartrate. Blood pressure appears to allow. (3) Pericardial effusion: (4) ROSA (acute kidney injury): Plan: IV Lasix infusion discontinued by nephrology due to elevated creatinine. Repeat basic metabolic panel in a.m. Consider transition to torsemide in a.m. Await pathology of abdominal fat pad biopsy. Telemetry reveals atrial flutter at a rate of 100 to 130 bpm with activity. Avoiding anticoagulation given pericardial effusion. Toprol-XL 75 mg daily transitioned to metoprolol tartrate 50 mg twice daily 11/02/2020. Consider titration to 50 mg 3 times daily pending clinical response. Cardiac MRI scheduled at [facility] on 11/15, follow up visit at [facility] 11/22/20. SQ heparin for DVT prophylaxis. Admission and Anticipated Discharge Date Admission Date: October 25, 2020 Subjective Patient seen and examined, chart, medications, telemetry reviewed. Patient denies any acute complaints. He remains in atrial flutter with elevated ventricular response rate at times. No bradycardia arrhythmias. No syncope or near syncope. Weight down at least 4 kg Review of Systems Review of Systems: All systems reviewed & are unremarkable except as noted in Subjective Physical Exam Constitutional: + cachectic; no acute distress Neck: normal visual inspection Respiratory: Auscultation: + crackles (Left base) Cardiovascular: Rate/Rhythm: regular rhythm and + tachycardic Heart Sounds: normal S1 and normal S2 Vessels: no JVD Extremities: + edema Chest (Breasts): Chest: normal inspection of chest Gastrointestinal (Abdomen): Inspection/Auscultation: abdomen not distended Neurologic: awake Results & Data ([facility]) Vital Signs (Past 12 Hours) Vital Signs Temp Pulse Resp BP BP Pulse Ox 11/04/20 11:16 120 H 97 11/04/20 11:13 84 L 11/04/20 11:00 36.3 C L 118 H 20 104/69 97 11/04/20 07:49 36.6 C 107 H 20 123/77 96 11/04/20 03:20 36.7 C 75 20 107/66 92 Laboratory Results Laboratory Results - last 24 hr 11/01/20 11/04/20 05:36 08:08 Sodium 137 Potassium 4.0 Chloride 104 Carbon Dioxide 25 Anion Gap 9.0 BUN 63 H Creatinine 2.69 H Est Cr Clr Drug Dosing 20.6 Est GFR ( Amer) 24.1 Est GFR (Non-Af Amer) 20.8 BUN/Creatinine Ratio 23.6 H Glucose 90 Calcium 9.8 Free Sunshine LC, Quant 52.2 H Free Lambda LC, Quant 19.7 Free Sunshine/Lambda Ratio 2.65 H
[2020-11-04] MEDS ORDERED: METOPROLOL TARTRATE 50 MG TAB PO SCH (14:00)
--- NOTE | 2020-11-04 14:25 | Hospitalist Progress Note ---
Date of Service November 04, 2020 Assessment & Plan (1) Acute on chronic combined systolic and diastolic heart failure: Plan: Progressive shortness of breath over the last 2 weeks with progressive lower extremity edema, known history of 35% ejection fraction per echo in September 2020, along with interval progression of small bilateral pleural effusions and mild interstitial pulmonary edema and elevated BNP supported the diagnosis of acute systolic heart failure. The patient does have a grade 3 diastolic dysfunction noted on previous echocardiogram. Echo performed this admission now reveals EF of 25 to 30% with a new small circumferential pericardial effusion. He was started on low dose prednisone for this. With acute worsening of SOB on 11/01 the echo was repeated and there is no worsening of the pericardial effusion, however, worsening pulmonary edema with pleural effusions are seen. Pulm was consulted and is recommending continued medical therapy with diuresis. Nephrology is following and Lasix infusion was started 11/02 in the afternoon, however, it was stopped this morning due to a rising creatinine. Consider resumption of diuretics in am using torsemide. BMP in am. Cont low salt diet and add 1.2mL fluid restriction. Investigation for possible infiltrative cardiomyopathy is underway with pending pathology from recent abdominal fat pad biopsy performed this admission. (2) Tachycardia: Plan: Thought to be in atrial flutter with rate of 100-110 per cardiology. No anticoagulation 2/2 pericardial effusion and INR already elevated slightly. Cont beta luana therapy, switched to short-acting metoprolol, increased to TID today. (3) ROSA (acute kidney injury): Plan: Nephrology following, creatinine slightly improved off diuretics to 2.69 from 2.8 yesterday. Baseline creatinine is 1.3. Diuretics as tolerated. (4) CKD (chronic kidney disease), stage III: Plan: Baseline~1.3 Monitor renal functions, avoid nephrotoxic agents when possible. Nephrology is following. (5) Pericardial effusion: Plan: started on low dose prednisone this admission. Steroids as well as hospitalization may be adding to intermittent confusion. Cont for now and monitor closely. (6) CAD (coronary artery disease): Plan: Continue medical management with aspirin 81, atorvastatin 20 mg daily, Lopressor. (7) Hypothyroidism: Plan: Continue levothyroxine, with ongoing tachycardia, repeat TSH is only slightly elevated from normal range. No adjustments to Synthroid. (8) Generalized weakness: Plan: No gross focal deficits on exam. PT/OT. (9) DVT prophylaxis: Plan: Heparin SQ Full Code Dispo-cont telemetry monitoring. Once optimized consider SNF in light of intermittent confusion demonstrated during this hospital stay. Will discuss options with case management on Wednesday. DO Trae Champion Hospitalist Admission and Anticipated Discharge Date Admission Date: October 25, 2020 Subjective 85 o M admitted for SOB and tachycardia acutely SOB and found to be 84% on room air, placed on 2LPM via NC and HR went from 120 to 105 with improvement in oxygen saturation and overall appearance. continue low dose oxygen, new for him this admission. otherwise denies any symptoms of pain, nausea Review of Systems Review of Systems: All systems were reviewed and negative except as indicated in HPI above. Physical Exam Physical Exam: CONSTITUTIONAL: thin, vitals as above, generally NAD EYES: normal conjunctivae, no scleral icterus ENT: external ear and nose normal, MMM RESPIRATORY: CTAB, no rales or wheezes, normal respiratory effort CARDIOVASCULAR: reg rate and rhythm, S1 and 2 heard without murmurs, gallops or rubs, no JVD, 2+ pitting edema bilateral lower extremities to the mid-shins GASTROINTESTINAL: soft, nontender, nondistended. MUSCULOSKELETAL: strength 5/5 throughout, head is normocephalic and atraumatic SKIN: warm and dry NEUROLOGIC: CN 2-12 grossly intact, no sensory deficit, normal cognition, normal speech, no gross focal deficits. PSYCHIATRIC: alert cooperative Results & Data Results & Data ([facility]) Vital Signs (Past 12 Hours) Vital Signs Temp Pulse Resp BP BP Pulse Ox 11/04/20 13:54 114 H 109/80 11/04/20 11:16 120 H 97 11/04/20 11:13 84 L 11/04/20 11:00 36.3 C L 118 H 20 104/69 97 11/04/20 07:49 36.6 C 107 H 20 123/77 96 11/04/20 03:20 36.7 C 75 20 107/66 92 Laboratory Results [facility] 11/04/20 08:08 Sodium 137 Potassium 4.0 Chloride 104 Carbon Dioxide 25 BUN 63 H Creatinine 2.69 H Glucose 90 Calcium 9.8 Medications Administered Current Inpatient Medications Acetaminophen (Acetaminophen 325 Mg Tab) 325 mg PO Q6H PRN PRN Reason: Mild Pain Stop: 11/26/20 02:14 Aspirin (Aspirin 81 Mg Ectab) 81 mg PO DAILY BRANDT Stop: 11/25/20 08:59 Last Admin: 11/04/20 08:06 Dose: 81 mg Documented by: Atorvastatin Calcium (Atorvastatin 20 Mg Tab) 20 mg PO DAILY BRANDT Stop: 11/25/20 08:59 Last Admin: 11/04/20 08:07 Dose: 20 mg Documented by: Fluticasone Propionate (Fluticasone Propionate Na Spr 16 Gm Btl) 1 sprays NA BID BRANDT Stop: 11/30/20 10:59 Last Admin: 11/04/20 08:06 Dose: 1 sprays Documented by: Furosemide (Furosemide 40 Mg Tab) 40 mg PO QAM BRANDT Stop: 12/04/20 09:59 Last Admin: 11/04/20 10:31 Dose: 40 mg Documented by: Heparin Sodium (Porcine) (Heparin Sod 5,000 Unit/0.5 Ml Vial) 5,000 units SQ Q12 BRANDT Stop: 11/24/20 21:28 Last Admin: 11/04/20 08:07 Dose: 5,000 units Documented by: Levothyroxine Sodium (Levothyroxine Sodium 50 Mcg Tablet) 50 mcg PO DAILYBB BRANDT Stop: 11/25/20 06:29 Last Admin: 11/04/20 05:49 Dose: 50 mcg Documented by: Magnesium Oxide (Magnesium Oxide 400 Mg Tab) 400 mg PO QAM [facility] Stop: 12/02/20 14:44 Last Admin: 11/04/20 08:07 Dose: 400 mg Documented by: Melatonin (Melatonin 3 Mg Tab) 3 mg PO HS PRN PRN Reason: Sleep Stop: 11/26/20 00:38 Last Admin: 11/02/20 01:06 Dose: 3 mg Documented by: Metoprolol Tartrate (Metoprolol Tartrate 50 Mg Tab) 50 mg PO TID BRANDT Stop: 12/04/20 13:59 Last Admin: 11/04/20 13:56 Dose: 50 mg Documented by: Pantoprazole Sodium (Pantoprazole 40 Mg Tab) 40 mg PO DAILY BRANDT Stop: 11/25/20 08:59 Last Admin: 11/04/20 08:07 Dose: 40 mg Documented by: Polyethylene Glycol (Polyethylene (Miralax) 17 Gm Pack) 17 gm PO DAILY PRN PRN Reason: Constipation Stop: 11/24/20 21:28 Last Admin: 11/02/20 01:06 Dose: 17 gm Documented by: Prednisone (Prednisone 5 Mg Tab) 5 mg PO DAILY BRANDT Stop: 11/30/20 17:59 Last Admin: 11/04/20 08:07 Dose: 5 mg Documented by:
[2020-11-04] MEDS ORDERED: LEVALBUTEROL 1.25MG/0.5ML NEB NEB STA (19:32)
[2020-11-04 20:09] LABS: HCO3 ABG 24 mmol/L (19-24); PCO2 ABG 42 mmHg (35-46); PO2 ABG 108 mmHg (80-95); pH ABG 7.38 (7.35-7.45)
[2020-11-04 20:13] LABS: Allen Test Pos (Pos)
--- NOTE | 2020-11-04 20:23 | XRay Report ---
XR chest 1V portable HISTORY: 85 years-old Male sob acute shortness of breath COMPARISON: Chest radiograph 11/01/2020, CT chest 05/07/2017. TECHNIQUE: Portable AP view of the chest FINDINGS: Cardiac silhouette is enlarged, unchanged. Pulmonary vascular congestion with persistent interstitial coarsening. Small pleural effusions with mild bibasilar opacities suggestive of atelectasis. No pneu mothorax. Degenerative changes of the shoulders and spine. IMPRESSION: 1. Cardiomegaly with pulmonary vascular congestion. 2. Small pleural effusions. 3. Chronic reticular opacities suggestive of fibrosis. ACT 112: Negative or not required by law. The above report was generated using voice recognition software. It may contain grammatical, syntax o r spelling errors. Electronically signed by: Binh Judd M.D. 11/04/2020 8:22 PM
[2020-11-04 20:41] LABS: Basophils # (auto) 0.01 K/uL (0-0.2); Basophils % (auto) 0.1 %; Eosinophils # (auto) 0.01 K/uL (0-0.5); Eosinophils % (auto) 0.1 %; Hematocrit (blood only) 56.1 % (42-52); Immature Granulocytes # (auto) 0.03 K/uL (0.00-0.02); Immature Granulocytes % (auto) 0.3 %; Lymphocytes # (auto) 1.32 K/uL (1.2-3.4); Lymphocytes % (auto) 12.3 %; Mean Corpuscular Hemoglobin 32.3 pg (25-34); Mean Corpuscular Volume 95.2 fL (80-100); Mean Platelet Volume 11.1 fL (7.4-10.4); Monocytes # (auto) 1.16 K/uL (0.11-0.59); Monocytes % (auto) 10.8 %; Neutrophils # (auto) 8.17 K/uL (1.4-6.5); Neutrophils % (auto) 76.4 %; Platelet Count 173 K/uL (130-400); RDW Coefficient of Variation 15.3 % (11.5-14.5); RDW Standard Deviation 52.8 fL (36.4-46.3); Red Blood Count 5.89 M/uL (4.7-6.1)
[2020-11-04] MEDS ORDERED: METOPROLOL TARTRATE 1 MG/ML VIAL IV PRN (20:48)
[2020-11-04 20:55] LABS: Mean Corpuscular Hgb Conc 33.9 g/dL (32-36)
[2020-11-04 20:57] LABS: Albumin Level 3.5 gm/dl (3.4-5.0); BUN Creatinine Ratio 23.4 (10-20); Calcium 9.5 mg/dl (8.5-10.1); Est GFR (African American) 21.8 ml/min; Est GFR (Non-African American) 18.8 ml/min; Magnesium 2.7 mg/dl (1.8-2.4); Potassium 4.2 mmol/L (3.5-5.1)
[2020-11-04 21:12] LABS: Albumin Globulin Ratio 0.9 (0.9-2); Bilirubin,Total 2.9 mg/dl (0.2-1); Globulin 3.9 gm/dl (2.5-4.0); Total Protein 7.4 gm/dl (6.4-8.2); Troponin I 0.178 ng/ml (0-0.045)
[2020-11-04] MEDS ORDERED: FUROSEMIDE 40 MG in SYRINGE 0 ML IV ONE (21:15)
[2020-11-05] MEDS: LEVOTHYROXINE SODIUM 50 MCG TABLET PO SCH (06:05)
[2020-11-05 06:52] LABS: Hematocrit (blood only) 51.6 % (42-52); Hemoglobin 17.5 g/dL (14.0-18.0); Mean Corpuscular Hemoglobin 31.9 pg (25-34); Mean Corpuscular Hgb Conc 33.9 g/dL (32-36); Mean Corpuscular Volume 94.2 fL (80-100); Mean Platelet Volume 11.5 fL (7.4-10.4); Platelet Count 163 K/uL (130-400); RDW Coefficient of Variation 15.1 % (11.5-14.5); RDW Standard Deviation 52.2 fL (36.4-46.3); Red Blood Count 5.48 M/uL (4.7-6.1); White Blood Count 9.38 K/uL (4.8-10.8)
[2020-11-05 07:46] LABS: BUN Creatinine Ratio 25.2 (10-20); Calcium 9.1 mg/dl (8.5-10.1); Creatinine Clr Calc Pharmacy 20.2 ml/min; Est GFR (African American) 23.6 ml/min; Est GFR (Non-African American) 20.3 ml/min; Magnesium 2.6 mg/dl (1.8-2.4); Potassium 3.8 mmol/L (3.5-5.1)
[2020-11-05 07:54] LABS: Troponin I 0.166 ng/ml (0-0.045)
--- NOTE | 2020-11-05 08:04 | Hospitalist Progress Note ---
Date of Service November 05, 2020 Assessment & Plan Admission and Anticipated Discharge Date Admission Date: October 25, 2020 Subjective Yesterday evening patient was having sob and was tachyapneic. Labs and abg ok. ekg a fib. Was given a dose of iv lasix and transferred to pcu for close monitor. Did fine in the night. Results & Data Results & Data ([facility]) Vital Signs (Past 12 Hours) Vital Signs Temp Pulse Pulse Resp BP BP Pulse Ox 11/05/20 07:07 36.4 C L 82 18 116/73 98 11/05/20 03:34 36.3 C L 93 H 18 115/67 95 11/05/20 00:00 107 H 11/04/20 23:35 36.4 C L 93 H 16 113/71 96 11/04/20 21:00 99 H 11/04/20 20:49 36.3 C L 97 H 22 118/74 96 11/04/20 20:08 98 H 18 94
[2020-11-05] MEDS: ASPIRIN 81 MG ECTAB PO SCH (08:38)
[2020-11-05] MEDS: PANTOprazole 40 MG TAB PO SCH (08:38)
[2020-11-05] MEDS: ATORVASTATIN 20 MG TAB PO SCH (08:38)
--- NOTE | 2020-11-05 08:38 | Electrocardiogram Report ---
Test Reason : Blood Pressure : / mmHG Vent. 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
[2020-11-05] MEDS: FLUTICASONE PROPIONATE NA SPR 16 GM BTL SCH ×2 (08:39→20:42)
[2020-11-05] MEDS: predniSONE 5 MG TAB PO SCH (08:39)
[2020-11-05] MEDS: FUROSEMIDE 40 MG TAB PO SCH (08:39)
[2020-11-05] MEDS: HEPARIN SOD 5,000 UNIT/0.5 ML VIAL SQ SCH ×2 (08:39→20:41)
[2020-11-05] MEDS: MAGNESIUM OXIDE 400 MG TAB PO SCH (08:39)
--- NOTE | 2020-11-05 08:46 | Electrocardiogram Report ---
Test Reason : Blood Pressure : / mmHG Vent. 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
--- NOTE | 2020-11-05 10:09 | Progress Note ---
Date of Service November 05, 2020 check incision site, F/u S/P biopsy abdominal fat pad, no fever, the incision site heals well, no redness, no drainage, Assessment & Plan (1) Acute on chronic combined systolic and diastolic heart failure: Plan: Automotive Quality Manager recommend to do biopsy abdominal fat pad, pt will have biopsy abdominal fat pad under local anesthesia, tomorrow, D/W benefits, risks and alternatives of the surgery, the risks - infection, bleeding, pt and his daughter understood, they agree with surgery, pt signed informed consent, I answered all questions, NPO after MN, Plan: 11/05/2020, 10:06AM the abdominal biopsy incision site, heals well, no redness, no drainage, pathology is pending, sign off please call with questions, Admission and Anticipated Discharge Date Admission Date: October 25, 2020 Subjective Yesterday evening patient was having sob and was tachyapneic. Labs and abg ok. ekg a fib. Was given a dose of iv lasix and transferred to pcu for close monitor. Did fine in the night. Review of Systems Constitutional: as per Subjective / HPI Ear, Nose, Mouth, Throat: as per Subjective / HPI Respiratory: as per Subjective / HPI SOB Cardiovascular: Additional Comments: CAD, ischemic cardiomyopathy, CHF Neurologic: as per Subjective / HPI Psychiatric: as per Subjective / HPI Endocrine: as per Subjective / HPI Hematologic / Lymphatic: as per Subjective / HPI Physical Exam Constitutional: WD/WN, vitals as above Neck: trachea midline, no thyromegaly Cardiovascular: Rate/Rhythm: + irregularly irregular Gastrointestinal (Abdomen): soft, the incision site intact, heals well, no redness, no drainage, Neurologic: patellar DTR's 2+ bilat, sensation intact Psychiatric: A+Ox3, euthymic affect Results & Data ([facility]) Vital Signs (Past 12 Hours) Vital Signs Temp Pulse Pulse Resp BP BP Pulse Ox 11/05/20 09:03 91 H 11/05/20 07:07 36.4 C L 82 18 116/73 98 11/05/20 03:34 36.3 C L 93 H 18 115/67 95 11/05/20 00:00 107 H 11/04/20 23:35 36.4 C L 93 H 16 113/71 96
--- NOTE | 2020-11-05 11:19 | Nephrology Progress Note ---
Date of Service November 05, 2020 Assessment & Plan Admission and Anticipated Discharge Date Admission Date: October 25, 2020 Subjective (1) ROSA (acute kidney injury): Plan: Patient with acute kidney injury likely cardiorenal syndrome. Creatinine uptrending to 2.8 but then down a bit today 2.6 and then up again . -Continue Diuretics inpt and outpt--was on Lasix 40 daily before. has been resumed. I have no problem switching to torsemide iof cards desires so it does appear he will have a higher baseline creat going foward. In conclusive paraprotein tests--Consider hematology input but can wait for fat pad biopsy report. -Monitor input output -Avoid nephrotoxins (2) Acute on chronic combined systolic and diastolic CHF (congestive heart failure): Plan: Patient with CHF. He has severe concentric LVH on echo and mild pericardial effusion. -Maintain the fluid limit of 1.2 L daily -2 g sodium diet -Daily standing weight if able Subjective Seen in follow-up for acute kidney injury on CKD. He feels ??better today. Less short of breath. He is making urine. Creatinine down trending today Review of Systems Review of Systems: All other systems were reviewed and negative except as noted in HPI Physical Exam Physical Exam: General exam: Appears comfortable, no acute distress HEENT: Pupils are equal and reactive to light Neck: No JVD, neck is supple trachea is midline Respiratory system: Clear breath sounds bilaterally. Gastrointestinal: Abdomen is soft, non distended, non tender, bowel sounds are present CVS: Regular rate and rhythm. No murmurs, rubs or gallops Musculoskeletal: No joint or muscle tenderness Extremities: Non tender, Trace edema, peripheral pulses are present Neuro: Oriented, no tremors, no focal neurological deficits Skin: No rashes Results & Data ([facility]) Vital Signs (Past 12 Hours) Vital Signs Temp Pulse Pulse Resp BP BP Pulse Ox 11/05/20 11:00 36.3 C L 90 17 119/71 97 11/05/20 09:03 91 H 11/05/20 07:07 36.4 C L 82 18 116/73 98 11/05/20 03:34 36.3 C L 93 H 18 115/67 95 11/05/20 00:00 107 H 11/04/20 23:35 36.4 C L 93 H 16 113/71 96
--- NOTE | 2020-11-05 13:21 | Hospitalist Progress Note ---
Date of Service November 05, 2020 Assessment & Plan (1) Acute on chronic combined systolic and diastolic heart failure: Plan: Progressive shortness of breath over the last 2 weeks with progressive lower extremity edema, known history of 35% ejection fraction per echo in September 2020, along with interval progression of small bilateral pleural effusions and mild interstitial pulmonary edema and elevated BNP supported the diagnosis of acute systolic heart failure. The patient does have a grade 3 diastolic dysfunction noted on previous echocardiogram. Echo performed this admission now reveals EF of 25 to 30% with a new small circumferential pericardial effusion. He was started on low dose prednisone for this. With acute worsening of SOB on 11/01 the echo was repeated and there is no worsening of the pericardial effusion, however, worsening pulmonary edema with pleural effusions were seen. Pulm was consulted and is recommending continued medical therapy with diuresis. Nephrology ordered a Lasix drip on 11/02 in the afternoon, however, it was stopped the next morning due to a rising creatinine. Consider resumption of diuretics in am using torsemide. BMP in am. Cont low salt diet and fluid restriction. Investigation for possible infiltrative cardiomyopathy is underway with pending pathology from recent abdominal fat pad biopsy performed this admission. (2) Tachycardia: Plan: Thought to be in atrial flutter with rate of 100-110 per cardiology. No anticoagulation 2/2 pericardial effusion and INR already elevated slightly. Beta luana therapy was stopped. (3) ROSA (acute kidney injury): Plan: Nephrology following, creatinine slightly improved off diuretics to 2.69 from 2.8 yesterday. Baseline creatinine is 1.3. Diuretics as tolerated. (4) CKD (chronic kidney disease), stage III: Plan: Baseline~1.3 Monitor renal functions, avoid nephrotoxic agents when possible. Nephrology is following. (5) Pericardial effusion: Plan: started on low dose prednisone this admission. Steroids as well as hospitalization may be adding to intermittent confusion. Cont for now and monitor closely. (6) CAD (coronary artery disease): Plan: Continue medical management with aspirin 81, atorvastatin 20 mg daily, Lopressor. (7) Hypothyroidism: Plan: Continue levothyroxine, with ongoing tachycardia, repeat TSH is only slightly elevated from normal range. No adjustments to Synthroid. (8) Generalized weakness: Plan: No gross focal deficits on exam. PT/OT. (9) DVT prophylaxis: Plan: Heparin SQ Full Code Dispo-cont telemetry monitoring. Once optimized consider SNF in light of intermittent confusion demonstrated during this hospital stay. Will discuss options with case management on Wednesday. DO Trae Champion Hospitalist Admission and Anticipated Discharge Date Admission Date: October 25, 2020 Subjective 85 o M admitted for acute heart failure Pt is progressively weak and tired today, denies any pain, SOB or other issues at this time. He appears to have periods of confusion--wondering if prednisone started this admission may be playing a role He is now requiring oxygen continuously at rest. 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 I spoke with his daughter by phone and discussed prognosis and palliative care consutl. Review of Systems Review of Systems: All systems were reviewed and negative except as indicated in HPI above. Physical Exam Physical Exam: CONSTITUTIONAL: thin, vitals as above, generally NAD EYES: normal conjunctivae, no scleral icterus ENT: external ear and nose normal, MMM RESPIRATORY: CTAB, no rales or wheezes, normal respiratory effort CARDIOVASCULAR: reg rate and rhythm, S1 and 2 heard without murmurs, gallops or rubs, no JVD, 2+ pitting edema bilateral lower extremities to the mid-shins GASTROINTESTINAL: soft, nontender, nondistended. MUSCULOSKELETAL: strength 5/5 throughout, head is normocephalic and atraumatic SKIN: warm and dry NEUROLOGIC: CN 2-12 grossly intact, no sensory deficit, normal cognition, n ormal speech, no gross focal deficits. PSYCHIATRIC: alert cooperative Results & Data Results & Data ([facility]) Vital Signs (Past 12 Hours) Vital Signs Temp Pulse Pulse Resp BP BP Pulse Ox 11/05/20 11:00 36.3 C L 90 17 119/71 97 11/05/20 09:03 91 H 11/05/20 07:07 36.4 C L 82 18 116/73 98 11/05/20 03:34 36.3 C L 93 H 18 115/67 95 Laboratory Results Short CBC 11/04/20 11/05/20 Range/Units 20:05 06:16 WBC 10.70 9.38 (4.8-10.8) K/uL Hgb 19.0 H 17.5 (14.0-18.0) g/dL Hct 56.1 H 51.6 (42-52) % Plt Count 173 163 (130-400) K/uL BMP 11/04/20 11/05/20 20:05 06:16 Sodium 136 138 Potassium 4.2 3.8 Chloride 102 103 Carbon Dioxide 22 24 BUN 68 H 69 H Creatinine 2.92 H 2.74 H Glucose 95 67 L Calcium 9.5 9.1 Cardiac Enzymes 11/04/20 11/05/20 Range/Units 20:05 06:16 Troponin I 0.178 H* 0.166 H* (0-0.045) ng/ml Liver Function 11/04/20 Range/Units 20:05 Total Bilirubin 2.9 H (0.2-1) mg/dl AST 67 H (15-37) U/L ALT 38 (12-78) U/L Alkaline Phosphatase 111 (45-117) U/L Albumin 3.5 (3.4-5.0) gm/dl Medications Administered Current Inpatient Medications Acetaminophen (Acetaminophen 325 Mg Tab) 325 mg PO Q6H PRN PRN Reason: Mild Pain Stop: 11/26/20 02:14 Aspirin (Aspirin 81 Mg Ectab) 81 mg PO DAILY BRANDT Stop: 11/25/20 08:59 Last Admin: 11/05/20 08:38 Dose: 81 mg Documented by: Atorvastatin Calcium (Atorvastatin 20 Mg Tab) 20 mg PO DAILY BRANDT Stop: 11/25/20 08:59 Last Admin: 11/05/20 08:38 Dose: 20 mg Documented by: Fluticasone Propionate (Fluticasone Propionate Na Spr 16 Gm Btl) 1 sprays NA BID BRANDT Stop: 11/30/20 10:59 Last Admin: 11/05/20 08:39 Dose: 1 sprays Documented by: Furosemide (Furosemide 40 Mg Tab) 40 mg PO QAM BRANDT Stop: 12/04/20 09:59 Last Admin: 11/05/20 08:39 Dose: 40 mg Documented by: Heparin Sodium (Porcine) (Heparin Sod 5,000 Unit/0.5 Ml Vial) 5,000 units SQ Q12 BRANDT Stop: 11/24/20 21:28 Last Admin: 11/05/20 08:39 Dose: 5,000 units Documented by: Levothyroxine Sodium (Levothyroxine Sodium 50 Mcg Tablet) 50 mcg PO DAILYBB BRANDT Stop: 11/25/20 06:29 Last Admin: 11/05/20 06:05 Dose: 50 mcg Documented by: Magnesium Oxide (Magnesium Oxide 400 Mg Tab) 400 mg PO QAM [facility] Stop: 12/02/20 14:44 Last Admin: 11/05/20 08:39 Dose: 400 mg Documented by: Melatonin (Melatonin 3 Mg Tab) 3 mg PO HS PRN PRN Reason: Sleep Stop: 11/26/20 00:38 Last Admin: 11/02/20 01:06 Dose: 3 mg Documented by: Metoprolol Tartrate (Metoprolol Tartrate 50 Mg Tab) 50 mg PO TID [facility] Stop: 12/04/20 13:59 Last Admin: 11/04/20 13:56 Dose: 50 mg Documented by: Metoprolol Tartrate (Metoprolol Tartrate 1 Mg/Ml Vial) 2.5 mg IV Q4H PRN PRN Reason: Tachycardia Stop: 12/04/20 20:47 Pantoprazole Sodium (Pantoprazole 40 Mg Tab) 40 mg PO DAILY [facility] Stop: 11/25/20 08:59 Last Admin: 11/05/20 08:38 Dose: 40 mg Documented by: Polyethylene Glycol (Polyethylene (Miralax) 17 Gm Pack) 17 gm PO DAILY PRN PRN Reason: Constipation Stop: 11/24/20 21:28 Last Admin: 11/02/20 01:06 Dose: 17 gm Documented by: Prednisone (Prednisone 5 Mg Tab) 5 mg PO DAILY [facility] Stop: 11/30/20 17:59 Last Admin: 11/05/20 08:39 Dose: 5 mg Documented by:
--- NOTE | 2020-11-05 18:11 | Cardiology Progress Note ---
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 He has responded to diuretics and will be switched to oral Likely did not tolerate increased beta-luana for control of heart rate. Little change in heart rate on discontinuing drug and hemodynamically appears improved. May reinstitute very low-dose beta-luana for activity related heart rate control depending on clinical course Current processes carry a very poor prognosis we will attempt to optimize medical therapies. CODE STATUS and remote computer terminal operator management plans will need to be addressed (2) Atrial flutter: (3) Pericardial effusion: (4) ROSA (acute kidney injury): Admission and Anticipated Discharge Date Admission Date: October 25, 2020 Subjective Patient seen and evaluated, chart, medications, telemetry reviewed. Patient less interactive today but no acute complaints. Heart rate remains 90s to 100 despite holding beta-luana Physical Exam Constitutional: + cachectic; no acute distress Neck: normal visual inspection Respiratory: Auscultation: + crackles (Left base) Cardiovascular: Rate/Rhythm: regular rhythm and + tachycardic Heart Sounds: normal S1 and normal S2 Vessels: no JVD Extremities: + edema Chest (Breasts): Chest: normal inspection of chest Gastrointestinal (Abdomen): Inspection/Auscultation: abdomen not distended Neurologic: awake Results & Data ([facility]) Vital Signs (Past 12 Hours) Vital Signs Temp Pulse Pulse Resp BP Pulse Ox 11/05/20 15:06 36.6 C 94 H 17 116/71 100 11/05/20 11:00 36.3 C L 90 17 119/71 97 11/05/20 09:03 91 H 11/05/20 07:07 36.4 C L 82 18 116/73 98 Laboratory Results Laboratory Results - last 24 hr 11/04/20 11/04/20 11/04/20 19:52 20:05 20:05 WBC 10.70 RBC 5.89 Hgb 19.0 H Hct 56.1 H MCV 95.2 MCH 32.3 MCHC 33.9 RDW Std Deviation 52.8 H RDW Coeff of Lesley 15.3 H Plt Count 173 MPV 11.1 H Immature Gran % (Auto) 0.3 Neut % (Auto) 76.4 Lymph % (Auto) 12.3 Izard % (Auto) 10.8 Eos % (Auto) 0.1 Baso % (Auto) 0.1 Neut # (Auto) 8.17 H Lymph # (Auto) 1.32 Izard # (Auto) 1.16 H Eos # (Auto) 0.01 Baso # (Auto) 0.01 Immature Gran # (Auto) 0.03 H ABG pH 7.38 ABG pCO2 42 ABG pO2 108 H ABG HCO3 24 ABG O2 Saturation 98.0 H ABG Base Excess -1.0 Adriel Test Pos Barometric Pressure 731.1 Oxygen Given 3 Sodium 136 Potassium 4.2 Chloride 102 Carbon Dioxide 22 Anion Gap 12.0 H BUN 68 H Creatinine 2.92 H Est Cr Clr Drug Dosing 19.0 Est GFR ( Amer) 21.8 Est GFR (Non-Af Amer) 18.8 BUN/Creatinine Ratio 23.4 H Glucose 95 POC Glucose Calcium 9.5 Phosphorus Magnesium 2.7 H Total Bilirubin 2.9 H AST 67 H ALT 38 Alkaline Phosphatase 111 Troponin I 0.178 H* Total Protein 7.4 Albumin 3.5 Globulin 3.9 Albumin/Globulin Ratio 0.9 11/05/20 11/05/20 11/05/20 06:16 06:16 08:36 WBC 9.38 RBC 5.48 Hgb 17.5 Hct 51.6 MCV 94.2 MCH 31.9 MCHC 33.9 RDW Std Deviation 52.2 H RDW Coeff of Lesley 15.1 H Plt Count 163 MPV 11.5 H Immature Gran % (Auto) Neut % (Auto) Lymph % (Auto) Izard % (Auto) Eos % (Auto) Baso % (Auto) Neut # (Auto) Lymph # (Auto) Izard # (Auto) Eos # (Auto) Baso # (Auto) Immature Gran # (Auto) ABG pH ABG pCO2 ABG pO2 ABG HCO3 ABG O2 Saturation ABG Base Excess Adriel Test Barometric Pressure Oxygen Given Sodium 138 Potassium 3.8 Chloride 103 Carbon Dioxide 24 Anion Gap 11.0 BUN 69 H Creatinine 2.74 H Est Cr Clr Drug Dosing 20.2 Est GFR ( Amer) 23.6 Est GFR (Non-Af Amer) 20.3 BUN/Creatinine Ratio 25.2 H Glucose 67 L POC Glucose 110 H Calcium 9.1 Phosphorus 4.0 Magnesium 2.6 H Total Bilirubin AST ALT Alkaline Phosphatase Troponin I 0.166 H* Total Protein Albumin Globulin Albumin/Globulin Ratio 11/05/20 11:06 WBC RBC Hgb Hct MCV MCH MCHC RDW Std Deviation RDW Coeff of Lesley Plt Count MPV Immature Gran % (Auto) Neut % (Auto) Lymph % (Auto) Izard % (Auto) Eos % (Auto) Baso % (Auto) Neut # (Auto) Lymph # (Auto) Izard # (Auto) Eos # (Auto) Baso # (Auto) Immature Gran # (Auto) ABG pH ABG pCO2 ABG pO2 ABG HCO3 ABG O2 Saturation ABG Base Excess Adriel Test Barometric Pressure Oxygen Given Sodium Potassium Chloride Carbon Dioxide Anion Gap BUN Creatinine Est Cr Clr Drug Dosing Est GFR ( Amer) Est GFR (Non-Af Amer) BUN/Creatinine Ratio Glucose POC Glucose 126 H Calcium Phosphorus Magnesium Total Bilirubin AST ALT Alkaline Phosphatase Troponin I Total Protein Albumin Globulin Albumin/Globulin Ratio
[2020-11-06] MEDS: LEVOTHYROXINE SODIUM 50 MCG TABLET PO SCH (05:40)
[2020-11-06 07:41] LABS: Hematocrit (blood only) 51.3 % (42-52); Mean Corpuscular Hemoglobin 31.4 pg (25-34); Mean Corpuscular Hgb Conc 33.1 g/dL (32-36); Mean Corpuscular Volume 94.8 fL (80-100); Mean Platelet Volume 11.3 fL (7.4-10.4); Platelet Count 166 K/uL (130-400); RDW Coefficient of Variation 15.2 % (11.5-14.5); RDW Standard Deviation 52.8 fL (36.4-46.3); Red Blood Count 5.41 M/uL (4.7-6.1); White Blood Count 9.45 K/uL (4.8-10.8)
[2020-11-06 08:04] LABS: Calcium 9.2 mg/dl (8.5-10.1); Creatinine Clr Calc Pharmacy 22.6 ml/min; Est GFR (African American) 27.5 ml/min; Est GFR (Non-African American) 23.8 ml/min; Potassium 3.7 mmol/L (3.5-5.1)
[2020-11-06] MEDS: ASPIRIN 81 MG ECTAB PO SCH (08:05)
[2020-11-06] MEDS: FLUTICASONE PROPIONATE NA SPR 16 GM BTL SCH ×2 (08:05→19:58)
[2020-11-06] MEDS: ATORVASTATIN 20 MG TAB PO SCH (08:06)
[2020-11-06] MEDS: HEPARIN SOD 5,000 UNIT/0.5 ML VIAL SQ SCH ×2 (08:06→19:58)
[2020-11-06] MEDS: PANTOprazole 40 MG TAB PO SCH (08:06)
[2020-11-06] MEDS: predniSONE 5 MG TAB PO SCH (08:06)
[2020-11-06] MEDS: FUROSEMIDE 40 MG TAB PO SCH (08:06)
[2020-11-06] MEDS: MAGNESIUM OXIDE 400 MG TAB PO SCH (08:06)
--- NOTE | 2020-11-06 09:24 | Nephrology Progress Note ---
Date of Service November 06, 2020 Assessment & Plan Admission and Anticipated Discharge Date Admission Date: October 25, 2020 Subjective (1) ROAS (acute kidney injury): Plan: Patient with acute kidney injury likely cardiorenal syndrome. Creatinine now downtrending . -Continue Diuretics was on Lasix 40 daily before. has been resumed. it does appear he will have a somewhat higher baseline creat going foward. Inconclusive paraprotein tests--Consider hematology input but can wait for fat pad biopsy report. -Monitor input output. Urine output only about 750 ml if accurate. This is not enough. May have to raise the diuretics dose if it is really accurate. -Avoid nephrotoxins (2) Acute on chronic combined systolic and diastolic CHF (congestive heart failure): Plan: Patient with CHF. He has severe concentric LVH on echo and mild pericardial effusion. beingruled out for Cardiac amyloidosis -Maintain the fluid limit of 1.2 L daily -2 g sodium diet -Daily standing weight if able Subjective Seen in follow-up for acute kidney injury on CKD. Less short of breath. Creatinine down trending today Review of Systems Review of Systems: All other systems were reviewed and negative except as noted in HPI Physical Exam Physical Exam: General exam: Appears comfortable, no acute distress HEENT: Pupils are equal and reactive to light Neck: No JVD, neck is supple trachea is midline Respiratory system: Clear breath sounds bilaterally. Gastrointestinal: Abdomen is soft, non distended, non tender, bowel sounds are present CVS: Regular rate and rhythm. No murmurs, rubs or gallops Musculoskeletal: No joint or muscle tenderness Extremities: Non tender, Trace edema, peripheral pulses are present Neuro: Oriented, no tremors, no focal neurological deficits Skin: No rashes Results & Data ([facility]) Vital Signs (Past 12 Hours) Vital Signs Temp Pulse Pulse Resp BP Pulse Ox 11/06/20 07:20 36.6 C 117 H 20 102/68 91 11/06/20 03:07 36.4 C L 117 H 17 105/63 96 11/06/20 01:22 118 H 11/05/20 23:05 36.4 C L 129 H 19 115/77 96
[2020-11-06] MEDS: METOPROLOL TARTRATE 25 MG TAB PO SCH ×2 (12:15→19:58)
--- NOTE | 2020-11-06 12:28 | Cardiology Progress Note ---
Date of Service November 06, 2020 Assessment & Plan (1) Acute on chronic combined systolic and diastolic heart failure: (2) Atrial flutter: (3) Pericardial effusion: (4) ROSA (acute kidney injury): Plan: Echocardiogram with features consistent with amyloidosis. Elevated free kappa light chains per quantitative analysis with elevated free kappa/lambda ratio. Abdominal fat pad biopsy pending at this time. 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 Continue diuretic therapy, Lasix 40 mg daily. Restart beta-luana at lower dose, 25 mg twice daily. Patient likely could not tolerate higher dose beta-luana due to reduction in cardiac output. In general, patients with amyloidosis are less tolerant of medical therapies, specifically beta-luana therapy. Avoid anticoagulation with pericardial effusion. [place] [facility] [place], follow up visit at [facility] 11/22/20. SQ heparin for DVT prophylaxis. Admission and Anticipated Discharge Date Admission Date: October 25, 2020 Subjective Patient seen examined the bedside. Complains of lack of sleep. Denies chest pain, shortness of breath, or palpitations. Metoprolol titrated to 50 mg 3 times daily Wednesday leading to declining clinical status. Beta-luana on hold for more than 36 hours. Telemetry was atrial fibrillation with rapid ventricular response. Heart ranging up to 130 bpm. There was a 7 beat shelia of nonsustained ventricular tachycardia as well. Fluid balance -475 cc. Creatinine trending downward. Tolerating daily oral furosemide. Review of Systems Review of Systems: All systems reviewed & are unremarkable except as noted in Subjective Physical Exam Constitutional: + ill appearing and + cachectic Respiratory: Auscultation: + diminished lung sounds (Bilateral bases) and + rales (Bilateral bases); no wheezes Cardiovascular: Rate/Rhythm: regular rhythm and + tachycardic Heart Sounds: normal S1 and normal S2; no murmur Gastrointestinal (Abdomen): Inspection/Auscultation: abdomen normal to inspection and normal bowel sounds; abdomen not distended Percussion/Palpation: abdomen soft; abdomen nontender, no guarding and abdomen not rigid Neurologic: CN's II-XI intact bilaterally and moves all extremities; no focal motor deficits Motor/Sensory: no tremor Psychiatric: A+Ox3, euthymic affect Results & Data ([facility]) Vital Signs (Past 12 Hours) Vital Signs Temp Pulse Pulse Resp BP Pulse Ox 11/06/20 11:02 36.4 C L 97 H 16 111/71 95 11/06/20 07:20 36.6 C 117 H 20 102/68 91 11/06/20 03:07 36.4 C L 117 H 17 105/63 96 11/06/20 01:22 118 H
--- NOTE | 2020-11-06 13:05 | Hospitalist Progress Note ---
Date of Service November 06, 2020 Assessment & Plan (1) Acute on chronic combined systolic and diastolic heart failure: Plan: "Progressive shortness of breath over the last 2 weeks with progressive lower extremity edema, known history of 35% ejection fraction per echo in September 2020, along with interval progression of small bilateral pleural effusions and mild interstitial pulmonary edema and elevated BNP supported the diagnosis of acute systolic heart failure. The patient does have a grade 3 diastolic dysfunction noted on previous echocardiogram. Echo performed this admission now reveals EF of 25 to 30% with a new small circumferential pericardial effusion. He was started on low dose prednisone for this. With acute worsening of SOB on 11/01 the echo was repeated and there is no worsening of the pericardial effusion, however, worsening pulmonary edema with pleural effusions were seen. Pulm was consulted and is recommending continued medical therapy with diuresis. Nephrology ordered a Lasix drip on 11/02 in the afternoon, however, it was stopped the next morning due to a rising creatinine. Investigation for possible infiltrative cardiomyopathy is underway with pending pathology from recent abdominal fat pad biopsy performed this admission." Per Dr. Vargas This morning patient is doing okay. Currently remains on 3 L of nasal cannula, does not use any oxygen at home. Rest of the review system is mainly negative. Cardiology is on board. Patient remains tachycardic. Plan to restart beta-luana today at low-dose with 25 mg twice daily. Start Lasix 40 mg daily. No indication given pericardial effusion. Plan for MRI on 11/15 and follow-up with cardiology on 11/22/2020. (2) Tachycardia: Plan: Thought to be in atrial flutter with rate of 100-110 per cardiology. No anticoagulation 2/2 pericardial effusion. (3) ORSA (acute kidney injury): Plan: Nephrology is on board. Creatinine is improving. Plan to continue with 40 mg p.o. daily Lasix continue monitor ins and outs along with daily weights. (4) CKD (chronic kidney disease), stage III: Plan: Baseline~1.3 Monitor renal functions, avoid nephrotoxic agents when possible. Nephrology is following. (5) Pericardial effusion: Plan: started on low dose prednisone this admission. Steroids as well as hospitalization may be adding to intermittent confusion. Cont for now and monitor closely. (6) CAD (coronary artery disease): Plan: Continue medical management with aspirin 81, atorvastatin 20 mg daily, Lopressor. (7) Hypothyroidism: Plan: Continue levothyroxine, with ongoing tachycardia, repeat TSH is only slightly elevated from normal range. No adjustments to Synthroid. (8) Generalized weakness: Plan: No gross focal deficits on exam. PT/OT. (9) DVT prophylaxis: Plan: Heparin SQ Full Code Dispo-cont telemetry monitoring. Once optimized consider SNF in light of intermittent confusion demonstrated during this hospital stay. Will discuss options with case management on Wednesday. Admission and Anticipated Discharge Date Admission Date: October 25, 2020 Subjective Patient is doing okay this morning. Upon my arrival patient was sleeping. Patient reported that he did not sleep that well last night because the roommate TV was on throughout the night. Patient was oriented x3. Denies any chest pain, shortness of breath, palpitations or any dizziness. Denies any abdominal pain, diarrhea or dysuria. Review of Systems Review of Systems: All systems reviewed & are unremarkable except as noted in HPI & below Physical Exam Physical Exam: General: A&Ox3. Ill-appearing cachectic gentleman HENT: NCAT, MMM, EOMI Eyes: PERRLA Neck: Supple, normal range of motion CVS: Tachycardic Resp: b/l crackles appreciated Abdomen: Soft, distended nontender Extremities: No c/c/e Neuro: face symmetric, strength grossly equal, no focal deficit Skin: warm and dry, no rashes/lesions/errythema MSK: no joint swelling/erythema Results & Data Results & Data ([facility]) Vital Signs (Past 12 Hours) Vital Signs Temp Pulse Pulse Resp BP Pulse Ox 11/06/20 11:02 36.4 C L 97 H 16 111/71 95 11/06/20 07:20 36.6 C 117 H 20 102/68 91 11/06/20 03:07 36.4 C L 117 H 17 105/63 96 11/06/20 01:22 118 H Laboratory Results Laboratory Results - last 24 hr 11/06/20 11/06/20 06:44 06:44 WBC 9.45 RBC 5.41 Hgb 17.0 Hct 51.3 MCV 94.8 MCH 31.4 MCHC 33.1 RDW Std Deviation 52.8 H RDW Coeff of Lesley 15.2 H Plt Count 166 MPV 11.3 H Sodium 138 Potassium 3.7 Chloride 103 Carbon Dioxide 27 Anion Gap 8.0 BUN 65 H Creatinine 2.41 H D Est Cr Clr Drug Dosing 22.6 Est GFR ( Amer) 27.5 Est GFR (Non-Af Amer) 23.8 BUN/Creatinine Ratio 27.0 H Glucose 85 Calcium 9.2
--- NOTE | 2020-11-06 17:05 | Palliative Care Consultation ---
Date of Consultation November 06, 2020 Assessment & Plan (1) Generalized weakness: He is not able to live independently. He has been considering selling his home and moving to an assisted living facility. At this time he would need SNF placement for his level of care. He voices understanding of this, though his daughter is concerned that he does understand the full implications of this. (2) Dyspnea: With mixed CHF. He is responding to diuresis and is on supplemental O2. (3) Palliative care encounter: I talked with Mr. Desai at bedside about his understanding of his illness. He seems to understand that his heart and kidney function are poor and that he is not likely to return to his prior level of function but talks about getting therapy and getting better so that he can be more independent. He is currently a full code. We discussed concerns that his prognosis is poor and that the likelihood of successful resuscitation is very low. He voices understanding of this but repeatedly says that he would want us to try and "if it doesn't work, it doesn't work". I spoke with is daughter, Becki, on the phone and reviewed my conversation with her father. She has talked with him about his wishes for care and he has said similar things to her. She does not feel that ultimately, he would want to be on ventilatory support and feels that he would prefer to be DNR. She is concerned that he is confused and not fully understanding his prognosis. While there does appear to be some confusion, he is able to tell me about his medical problems and understands that he will likely from this. I do believe that he is capable of decision making at this time and his wish is to remain full code. Palliative care will follow and continue to discuss goals of care. (4) Acute on chronic combined systolic and diastolic CHF (congestive heart failure): (5) CAD (coronary artery disease): (6) ROSA (acute kidney injury): History of Present Illness Reason for Consultation: goals of care Requesting Physician: Dr. Vargas Attending Physician: Nikky Rojas MD History of Present Illness 85 yo gentleman with history of CAD and ischemic cardiomyopathy as well as diastolic dysfunction. His most recent echo shows an EF of 35% with grade 3 diastolic dysfunction. He presented with progressive shortness of breath and weakness. He lives alone and is generally independent though his daughter notes that he has had some functional decline. On admission he had bilateral pleural effusions, interstitial edema and elevated BNP. He has responded to diuretics and reports that he feels better but has also unfortunately had progressive renal failure with a GFR of 23.8. 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 A biopsy is pending. We have been consulted to assist with goals of care. Allergies Allergy/AdvReac Type Severity Reaction Status Date / Time Sulfa (Sulfonamide Allergy Intermediate RASH Unverified 10/26/20 18:42 Antibiotics) Home Medications Medication Instructions Recorded Confirmed Type aspirin 81 mg tablet,delayed 81 mg PO DAILY 10/25/20 10/25/20 History release atorvastatin 20 mg tablet 20 mg PO DAILY 10/25/20 10/25/20 History azelastine 137 mcg (0.1 %) nasal 1 - 2 spray INTRANASAL BID 10/25/20 10/25/20 History spray aerosol carvedilol 3.125 mg tablet 3.125 mg PO BID 10/25/20 10/25/20 History fluticasone propionate 50 1 - 2 spray INTRANASAL Q12H 10/25/20 10/25/20 History mcg/actuation nasal spray,suspension (Flonase Allergy Relief) furosemide 20 mg tablet 40 mg PO DAILY 10/25/20 10/25/20 History levothyroxine 50 mcg tablet 50 mcg PO DAILYBB 10/25/20 10/25/20 History omeprazole 20 mg tablet,delayed 20 mg PO DAILY 10/25/20 10/25/20 History release polyethylene glycol 3350 17 17 g PO DIRECTED PRN 10/25/20 10/25/20 History gram/dose oral powder (Miralax) Patient History Medical History Acute on chronic combined systolic and diastolic CHF (congestive heart failure) Bilateral pleural effusion CAD (coronary artery disease) CKD (chronic kidney disease), stage III Diastolic CHF, chronic Hypothyroidism Ischemic cardiomyopathy Surgical History History of cataract surgery History of inguinal hernia repair History of nasal septoplasty Family History Father Cancer Social History Smoking Status: Never smoker Hx Alcohol Use: Yes Alcohol Intake Frequency: Monthly or Less Hx Substance Use: No Preferred Language: Croatian Communication Ability: Effective 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 Veneering Required: No Beliefs That Will Affect Care: None Current Living Situation: Alone Other Information That Helps Us Care for You: No Feels Safe at Home: Yes Assistive Devices: Walker Review of Systems Review of Systems: [place] Symptom Assessment Scale Pain 0/3 Dyspnea 2/3 Anxiety 1/3 Fatigue 2/3 Drowsiness 0/3 Palliative Performance Score 40% Physical Exam Constitutional: + ill appearing ENMT: Mouth: + dry oral mucous membranes Respiratory: + uses accessory muscles some dyspnea with conversation Neurologic: mild confusion, not oriented to day Results & Data ([facility]) Vital Signs (Past 12 Hours) Vital Signs Temp Pulse Pulse Resp BP Pulse Ox 11/06/20 11:02 97.5 F L 97 H 16 111/71 95 11/06/20 07:20 97.9 F 117 H 20 102/68 91 11/06/20 03:07 97.5 F L 117 H 17 105/63 96 11/06/20 01:22 118 H PG Care Time/CCT Total # of Minutes Spent Total Time Spent: 80 Total Time Spent with Patient: Total time spent is greater than 50% in coordination of care (as documented) at patient's floor/unit and/or counseling patient: prognosis, code status, goals of care, patient and family education and support Coding Level of Care Code 74277 Initial Inpt Care Lvl 3 Diagnoses Generalized weakness R53.1 Dyspnea R06.00 Acute on chronic combined systolic and diastolic CHF (congestive heart failure) I50.43 CAD (coronary artery disease) I25.10 ROSA (acute kidney injury) N17.9 Palliative care encounter Z51.5
[2020-11-07] MEDS: LEVOTHYROXINE SODIUM 50 MCG TABLET PO SCH (06:42)
[2020-11-07 06:51] LABS: Eosinophils # (auto) 0.07 K/uL (0-0.5); Eosinophils % (auto) 0.8 %; Hematocrit (blood only) 51.2 % (42-52); Hemoglobin 17.1 g/dL (14.0-18.0); Immature Granulocytes # (auto) 0.02 K/uL (0.00-0.02); Immature Granulocytes % (auto) 0.2 %; Lymphocytes # (auto) 1.25 K/uL (1.2-3.4); Lymphocytes % (auto) 13.8 %; Mean Corpuscular Hemoglobin 31.7 pg (25-34); Mean Corpuscular Hgb Conc 33.4 g/dL (32-36); Mean Corpuscular Volume 94.8 fL (80-100); Mean Platelet Volume 10.8 fL (7.4-10.4); Monocytes # (auto) 1.37 K/uL (0.11-0.59); Monocytes % (auto) 15.2 %; Neutrophils # (auto) 6.33 K/uL (1.4-6.5); Platelet Count 161 K/uL (130-400); RDW Coefficient of Variation 15.1 % (11.5-14.5); RDW Standard Deviation 52.5 fL (36.4-46.3); White Blood Count 9.04 K/uL (4.8-10.8)
[2020-11-07 07:32] LABS: BUN Creatinine Ratio 28.4 (10-20); Calcium 8.8 mg/dl (8.5-10.1); Creatinine Clr Calc Pharmacy 26.3 ml/min; Est GFR (African American) 32.5 ml/min; Est GFR (Non-African American) 28.1 ml/min; Potassium 3.9 mmol/L (3.5-5.1)
[2020-11-07] MEDS: MAGNESIUM OXIDE 400 MG TAB PO SCH (08:13)
[2020-11-07] MEDS: PANTOprazole 40 MG TAB PO SCH (08:13)
[2020-11-07] MEDS: ATORVASTATIN 20 MG TAB PO SCH (08:13)
[2020-11-07] MEDS: FUROSEMIDE 40 MG TAB PO SCH (08:13)
[2020-11-07] MEDS: ASPIRIN 81 MG ECTAB PO SCH (08:14)
[2020-11-07] MEDS: predniSONE 5 MG TAB PO SCH (08:14)
[2020-11-07] MEDS: METOPROLOL TARTRATE 25 MG TAB PO SCH ×2 (08:14→20:42)
[2020-11-07] MEDS: HEPARIN SOD 5,000 UNIT/0.5 ML VIAL SQ SCH ×2 (08:14→20:42)
[2020-11-07] MEDS: FLUTICASONE PROPIONATE NA SPR 16 GM BTL SCH ×2 (08:14→20:41)
--- NOTE | 2020-11-07 10:32 | Cardiology Progress Note ---
Date of Service November 07, 2020 Assessment & Plan (1) Acute on chronic combined systolic and diastolic heart failure: (2) Atrial flutter: (3) Pericardial effusion: (4) ROSA (acute kidney injury): Plan: Echocardiogram with features concerning for infiltrative cardiomyopathy. Elevated free kappa light chains per quantitative analysis with elevated free kappa/lambda ratio. Abdominal fat pad biopsy pending at this time. 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 Continue diuretic therapy, Lasix 40 mg daily. Monitor renal function, daily weight, and electrolytes. Continue low-dose beta-luana, metoprolol 25 mg twice daily. Patient likely could not tolerate higher dose beta-luana due to reduction in cardiac output. Avoid anticoagulation with pericardial effusion. Cardiac MRI scheduled at [facility] on 11/15, follow up visit at [facility] 11/22/20. SQ heparin for DVT prophylaxis. Poor prognosis. Palliative care evaluation appreciated. Prognosis and plan of care discussed with patient's daughter, Becki. All questions answered to her satisfaction. Admission and Anticipated Discharge Date Admission Date: October 25, 2020 Subjective Patient seen and examined at the bedside. Telemetry reveals atrial fibrillation heart rate ranging from 100-120 bpm. (Mildly improved with addition of low-dose beta-luana). Patient resting comfortably. Creatinine trending downward. Denies chest discomfort or shortness of breath at rest. No lightheadedness or dizziness. Review of Systems Review of Systems: All systems reviewed & are unremarkable except as noted in Subjective Physical Exam Constitutional: + ill appearing and + cachectic Respiratory: Auscultation: + diminished lung sounds (Bilateral bases); no rales (Bilateral bases) and no wheezes Cardiovascular: Rate/Rhythm: regular rhythm and + tachycardic Heart Sounds: normal S1 and normal S2; no murmur Gastrointestinal (Abdomen): Inspection/Auscultation: abdomen normal to inspection and normal bowel sounds; abdomen not distended Percussion/Palpation: abdomen soft; abdomen nontender, no guarding and abdomen not rigid Neurologic: CN's II-XI intact bilaterally and moves all extremities; no focal motor deficits Motor/Sensory: no tremor Psychiatric: A+Ox3, euthymic affect Results & Data ([facility]) Vital Signs (Past 12 Hours) Vital Signs Temp Pulse Resp BP Pulse Ox 11/07/20 07:40 36.5 C 111 H 17 118/69 96 11/07/20 02:56 36.4 C L 111 H 19 111/75 95 11/06/20 23:09 36.2 C L 112 H 19 106/73 97
--- NOTE | 2020-11-07 10:55 | Nephrology Progress Note ---
Date of Service November 07, 2020 Assessment & Plan Admission and Anticipated Discharge Date Admission Date: October 25, [address] [place] [address] Nephrology Progress NoteSigned Patient: VICTOR HUGO GODDARD TAdmit Date: 10/25/20#: [id number] Phy: Nikky Rojas, [facility] ID: [id number] Phy: Román Hawthorne DOBirth Date: 1935Fam Phy: Age: 85Location: 2SSex: MRoom/Bed: S239-1 cc: ~ *NOTICE TO RECEIVING CONSTITUTION PARTY/AGENCY This information is strictly Confidential and protected under [place] law. [place] law prohibits you from making any further disclosure of this information unless further disclosure is expressly permitted by the written consent of the person to whom it pertains or is authorized by law. A general authorization for the release of medical or other information is not sufficient for this purpose. Hospital accepts no responsibility if the information is made available to any other person, INCLUDING THE PATIENT. Assessment & Plan Admission and Anticipated Discharge Date Admission Date: October 25, 2020 Subjective (1) ROSA (acute kidney injury): Plan: Patient with acute kidney injury likely cardiorenal syndrome. Creatinine now downtrending . -Continue Diuretics was on Lasix 40 daily before. has been resumed. it does appear he will have a somewhat higher baseline creat going forward. Inconclusive paraprotein tests--Consider hematology input but can wait for fat pad biopsy report. -Conitnue lasix 40 daily for Discharge -Avoid nephrotoxins (2) Acute on chronic combined systolic and diastolic CHF (congestive heart failure): Plan: Patient with CHF. He has severe concentric LVH on echo and mild pericardial effusion. beingruled out for Cardiac amyloidosis -Maintain the fluid limit of 1.2 L daily -2 g sodium diet -Daily standing weight if able Subjective Seen in follow-up for acute kidney injury on CKD. Less short of breath. Creatinine down trending today. ?? Urine output Review of Systems Review of Systems: All other systems were reviewed and negative except as noted in HPI Physical Exam Physical Exam: General exam: Appears comfortable, no acute distress HEENT: Pupils are equal and reactive to light Neck: No JVD, neck is supple trachea is midline Respiratory system: Clear breath sounds bilaterally. Gastrointestinal: Abdomen is soft, non distended, non tender, bowel sounds are present CVS: Regular rate and rhythm. No murmurs, rubs or gallops Musculoskeletal: No joint or muscle tenderness Extremities: Non tender, Trace edema, peripheral pulses are present Neuro: Oriented, no tremors, no focal neurological deficits Skin: No rashes Results & Data ([facility]) Vital Signs (Past 12 Hours) Vital Signs Temp Pulse Resp BP Pulse Ox 11/07/20 07:40 36.5 C 111 H 17 118/69 96 11/07/20 02:56 36.4 C L 111 H 19 111/75 95 11/06/20 23:09 36.2 C L 112 H 19 106/73 97
--- NOTE | 2020-11-07 14:02 | Hospitalist Progress Note ---
Date of Service November 07, 2020 Assessment & Plan (1) Acute on chronic combined systolic and diastolic heart failure: Plan: "Progressive shortness of breath over the last 2 weeks with progressive lower extremity edema, known history of 35% ejection fraction per echo in September 2020, along with interval progression of small bilateral pleural effusions and mild interstitial pulmonary edema and elevated BNP supported the diagnosis of acute systolic heart failure. The patient does have a grade 3 diastolic dysfunction noted on previous echocardiogram. Echo performed this admission now reveals EF of 25 to 30% with a new small circumferential pericardial effusion. He was started on low dose prednisone for this. With acute worsening of SOB on 11/01 the echo was repeated and there is no worsening of the pericardial effusion, however, worsening pulmonary edema with pleural effusions were seen. Pulm was consulted and is recommending continued medical therapy with diuresis. Nephrology ordered a Lasix drip on 11/02 in the afternoon, however, it was stopped the next morning due to a rising creatinine. Investigation for possible infiltrative cardiomyopathy is underway with pending pathology from recent abdominal fat pad biopsy performed this admission." Per Dr. Vargas Doing okay this morning. Urine output of roughly 800 mL in the last 24 hours. Currently remains on 2 L of nasal cannula, does not use any oxygen at home. Rest of the review system is mainly negative. Cardiology is on board. Patient remains tachycardic. Continue with Lopressor 25 mg twice daily. Continue with Lasix 40 mg daily. No anticoagulation given pericardial effusion. Plan for MRI on 11/15 and follow-up with cardiology on 11/22/2020. Palliative medicine is on board. (2) Tachycardia: Plan: Thought to be in atrial flutter with rate of 100-110 per cardiology. No anticoagulation 2/2 pericardial effusion. (3) ROSA (acute kidney injury): Plan: Nephrology is on board. Creatinine is improving. Plan to continue with 40 mg p.o. daily Lasix continue monitor ins and outs along with daily weights. (4) CKD (chronic kidney disease), stage III: Plan: Baseline~1.3 Monitor renal functions, avoid nephrotoxic agents when possible. Nephrology is following. (5) Pericardial effusion: Plan: started on low dose prednisone this admission. Steroids as well as hospitalization may be adding to intermittent confusion. Cont for now and monitor closely. (6) CAD (coronary artery disease): Plan: Continue medical management with aspirin 81, atorvastatin 20 mg daily, Lopressor. (7) Hypothyroidism: Plan: Continue levothyroxine, with ongoing tachycardia, repeat TSH is only slightly elevated from normal range. No adjustments to Synthroid. (8) Generalized weakness: Plan: No gross focal deficits on exam. PT/OT. (9) DVT prophylaxis: Plan: Heparin SQ Full Code Dispo-cont telemetry monitoring. Once optimized consider SNF in light of intermittent confusion demonstrated during this hospital stay. Admission and Anticipated Discharge Date Admission Date: October 25, 2020 Subjective Doing okay this morning. He is awake, alert and oriented x3. Does appear a bit hypoactive today. Denies any chest pain and improved shortness of breath is improved. States his sleep was better today. Denies any abdominal pain or diarrhea. Rest of the review of system is negative. Review of Systems Review of Systems: All systems reviewed & are unremarkable except as noted in HPI & below Physical Exam Physical Exam: General: A&Ox3. Ill-appearing cachectic gentleman HENT: NCAT, MMM, EOMI Eyes: PERRLA Neck: Supple, normal range of motion CVS: Tachycardic Resp: b/l crackles appreciated Abdomen: Soft, distended nontender Extremities: trace LE edema Neuro: face symmetric,no focal deficit Skin: no rashes/lesions/errythema MSK: no joint swelling/erythema Results & Data Results & Data ([facility]) Vital Signs (Past 12 Hours) Vital Signs Temp Pulse Resp BP Pulse Ox 11/07/20 11:31 36.6 C 113 H 17 125/84 95 11/07/20 07:40 36.5 C 111 H 17 118/69 96 11/07/20 02:56 36.4 C L 111 H 19 111/75 95
[2020-11-08] MEDS: LEVOTHYROXINE SODIUM 50 MCG TABLET PO SCH (05:57)
[2020-11-08 07:35] LABS: Basophils # (auto) 0.01 K/uL (0-0.2); Basophils % (auto) 0.1 %; Eosinophils # (auto) 0.08 K/uL (0-0.5); Eosinophils % (auto) 0.8 %; Hematocrit (blood only) 52.8 % (42-52); Hemoglobin 17.6 g/dL (14.0-18.0); Immature Granulocytes # (auto) 0.02 K/uL (0.00-0.02); Immature Granulocytes % (auto) 0.2 %; Lymphocytes # (auto) 1.41 K/uL (1.2-3.4); Lymphocytes % (auto) 14.7 %; Mean Corpuscular Hemoglobin 31.5 pg (25-34); Mean Corpuscular Hgb Conc 33.3 g/dL (32-36); Mean Corpuscular Volume 94.6 fL (80-100); Mean Platelet Volume 11.8 fL (7.4-10.4); Monocytes # (auto) 1.33 K/uL (0.11-0.59); Monocytes % (auto) 13.9 %; Neutrophils # (auto) 6.75 K/uL (1.4-6.5); Neutrophils % (auto) 70.3 %; Platelet Count 158 K/uL (130-400); RDW Coefficient of Variation 15.1 % (11.5-14.5); Red Blood Count 5.58 M/uL (4.7-6.1)
[2020-11-08] MEDS: FUROSEMIDE 40 MG TAB PO SCH (07:42)
[2020-11-08] MEDS: FLUTICASONE PROPIONATE NA SPR 16 GM BTL SCH ×2 (07:42→21:00)
[2020-11-08] MEDS: ATORVASTATIN 20 MG TAB PO SCH (07:42)
[2020-11-08] MEDS: ASPIRIN 81 MG ECTAB PO SCH (07:43)
[2020-11-08] MEDS: METOPROLOL TARTRATE 25 MG TAB PO SCH ×2 (07:43→21:00)
[2020-11-08] MEDS: HEPARIN SOD 5,000 UNIT/0.5 ML VIAL SQ SCH ×2 (07:43→21:01)
[2020-11-08] MEDS: MAGNESIUM OXIDE 400 MG TAB PO SCH (07:44)
[2020-11-08] MEDS: PANTOprazole 40 MG TAB PO SCH (07:44)
[2020-11-08] MEDS: predniSONE 5 MG TAB PO SCH (07:44)
[2020-11-08 08:13] LABS: BUN Creatinine Ratio 28.9 (10-20); Calcium 8.9 mg/dl (8.5-10.1); Creatinine Clr Calc Pharmacy 26.8 ml/min; Est GFR (African American) 33.3 ml/min; Est GFR (Non-African American) 28.7 ml/min; Potassium 3.7 mmol/L (3.5-5.1)
--- NOTE | 2020-11-08 10:26 | Nephrology Progress Note ---
Date of Service November 08, 2020 Assessment & Plan Admission and Anticipated Discharge Date Admission Date: October 25, 2020 Subjective Subjective (1) ROSA (acute kidney injury): Plan: Patient with acute kidney injury likely cardiorenal syndrome. Creatinine now downtrending . -Continue Diuretics was on Lasix 40 daily before. has been resumed. it does appear he will have a somewhat higher baseline creat going forward. Inconclusive paraprotein tests--Consider hematology input but can wait for fat pad biopsy report. -Continue lasix 40 daily for Discharge -Avoid nephrotoxins (2) Acute on chronic combined systolic and diastolic CHF (congestive heart failure): Plan: Patient with CHF. He has severe concentric LVH on echo and mild pericardial effusion. beingruled out for Cardiac amyloidosis -Maintain the fluid limit of 1.2 L daily -2 g sodium diet -Daily standing weight if able Subjective Seen in follow-up for acute kidney injury on CKD. Less short of breath. Creatinine down trending today. ?? Urine output Review of Systems Review of Systems: All other systems were reviewed and negative except as noted in HPI Physical Exam Physical Exam: General exam: Appears comfortable, no acute distress HEENT: Pupils are equal and reactive to light Neck: No JVD, neck is supple trachea is midline Respiratory system: Clear breath sounds bilaterally. Gastrointestinal: Abdomen is soft, non distended, non tender, bowel sounds are present CVS: Regular rate and rhythm. No murmurs, rubs or gallops Musculoskeletal: No joint or muscle tenderness Extremities: Non tender, Trace edema, peripheral pulses are present Neuro: Oriented, no tremors, no focal neurological deficits Skin: No rashes Results & Data ([facility]) Vital Signs (Past 12 Hours) Vital Signs Temp Pulse Resp BP Pulse Ox 11/08/20 08:09 36.8 C 86 18 119/68 96 11/08/20 04:50 36.8 C 110 H 18 123/77 98 11/07/20 23:13 36.8 C 100 H 19 117/65 93
--- NOTE | 2020-11-08 15:03 | Cardiology Progress Note ---
Date of Service November 08, 2020 Assessment & Plan (1) Acute on chronic combined systolic and diastolic heart failure: (2) Atrial flutter: (3) Pericardial effusion: (4) ROSA (acute kidney injury): Plan: Echocardiogram with features concerning for infiltrative cardiomyopathy, however, negative fat pad biopsy. Elevated free kappa light chains per quantitative analysis with elevated free kappa/lambda ratio. Continue diuretic therapy, Lasix 40 mg daily. Monitor renal function, daily weight, and electrolytes. Continue low-dose beta-luana, metoprolol 25 mg twice daily. Intolerant to higher dose of beta luana (50mg TID) during hospitalization. Fair rate c ontrol. Avoid anticoagulation with pericardial effusion. Cardiac MRI scheduled at [facility] on 11/15, follow up visit at [facility] 11/22/20. SQ heparin for DVT prophylaxis. Poor prognosis. Palliative care evaluation appreciated. Admission and Anticipated Discharge Date Admission Date: October 25, 2020 Subjective Patient seen and examined at bedside. Daughter present today. Patient reports subjective improvement. No CP or SOB at rest. Telemetry demonstrates Atrial flutter 90-110. Review of Systems Review of Systems: All systems reviewed & are unremarkable except as noted in Subjective Physical Exam Constitutional: + ill appearing and + cachectic Respiratory: Auscultation: + diminished lung sounds (Bilateral bases); no rales (Bilateral bases) and no wheezes Cardiovascular: Rate/Rhythm: regular rhythm and + tachycardic Heart Sounds: normal S1 and normal S2; no murmur Gastrointestinal (Abdomen): Inspection/Auscultation: abdomen normal to inspection and normal bowel sounds; abdomen not distended Percussion/Palpation: abdomen soft; abdomen nontender, no guarding and abdomen not rigid Neurologic: CN's II-XI intact bilaterally and moves all extremities; no focal motor deficits Motor/Sensory: no tremor Psychiatric: A+Ox3, euthymic affect Results & Data ([facility]) Vital Signs (Past 12 Hours) Vital Signs Temp Pulse Resp BP Pulse Ox 11/08/20 12:10 36.6 C 99 H 16 117/62 96 11/08/20 08:09 36.8 C 86 18 119/68 96 11/08/20 04:50 36.8 C 110 H 18 123/77 98
--- NOTE | 2020-11-08 20:21 | Hospitalist Progress Note ---
Date of Service November 08, 2020 Assessment & Plan (1) Acute on chronic combined systolic and diastolic heart failure: Plan: Echocardiogram with features concerning for infiltrative cardiomyopathy however, negative fat pad biopsy. 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 Creatinine improved to 2.0 on current once daily dose of diuretic. Cardiology and nephrology optimizing regimen. Currently on metoprolol 25 p.o. twice daily and Lasix 40 mg p.o. once daily. Palliative medicine on board for poor prognosis, however, patient declines hospice at this time and remains full code. Continue optimizing regimen and plan for SNF as a transition to home. (2) ROSA (acute kidney injury): Plan: Nephrology is on board. Creatinine is improving. Likely cardiorenal syndrome. Plan to continue with 40 mg p.o. daily Lasix continue monitor ins and outs along with daily weights. (3) CKD (chronic kidney disease), stage III: Plan: Baseline~1.3 Monitor renal functions, avoid nephrotoxic agents when possible. Nephrology is following. (4) Pericardial effusion: Plan: started on low dose prednisone this admission. Steroids as well as hospitalization may be adding to intermittent confusion. Currently patient is sleeping and cannot assess mental status. Cont for now and monitor closely. (5) CAD (coronary artery disease): Plan: Continue medical management with aspirin 81, atorvastatin 20 mg daily, Lopressor. (6) Hypothyroidism: Plan: Continue levothyroxine, with ongoing tachycardia, repeat TSH is only slightly elevated from normal range. No adjustments to Synthroid. Repeat level as outpatient with primary care provider. (7) Generalized weakness: Plan: No gross focal deficits on exam. PT/OT as tolerated (8) DVT prophylaxis: Plan: Heparin SQ Full Code Dispo-cont telemetry monitoring. Once optimized consider SNF in light of intermittent confusion demonstrated during this hospital stay. (9) Atrial flutter: Plan: No anticoagulation 2/2 pericardial effusion. Continue Lopressor at current dose. 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 BUN today was 60, creatinine 2.06. Nephrology okay with renal function at new higher baseline given ongoing need for diuretic therapy. Palliative involved in care, and Mr. Desai remains a full code and is not ready to transition to hospice at this time. Continue current treatment On arrival to the bedside Mr. Hernandes was extremely tired and unable to participate in the physical exam. He was also unable to report any symptoms. Review of Systems Review of Systems: Could not ascertain review of systems as patient was sleeping and difficult to arouse. Physical Exam Physical Exam: CONSTITUTIONAL: thin, vitals as above, appears exhausted EYES: normal conjunctivae, no scleral icterus ENT: external ear and nose normal, MMM RESPIRATORY: CTAB, no rales or wheezes, normal respiratory effort CARDIOVASCULAR: Tacky rate and rhythm, S1 and 2 heard without murmurs, gallops or rubs, no JVD, no peripheral edema GASTROINTESTINAL: soft, nontender, nondistended. MUSCULOSKELETAL: Patient sleeping, frail and elderly. Unable to assess SKIN: warm and dry NEUROLOGIC: Lethargic, unable to assess Results & Data Results & Data ([facility]) Vital Signs (Past 12 Hours) Vital Signs Temp Pulse Resp BP Pulse Ox 11/08/20 19:39 36.8 C 118 H 20 103/64 97 11/08/20 17:14 36.7 C 80 16 122/63 95 11/08/20 12:10 36.6 C 99 H 16 117/62 96 Laboratory Results Short CBC 11/08/20 Range/Units 06:37 WBC 9.60 (4.8-10.8) K/uL Hgb 17.6 (14.0-18.0) g/dL Hct 52.8 H (42-52) % Plt Count 158 (130-400) K/uL BMP 11/08/20 06:37 Sodium 137 Potassium 3.7 Chloride 102 Carbon Dioxide 27 BUN 60 H Creatinine 2.06 H Glucose 80 Calcium 8.9 Medications Administered Current Inpatient Medications Acetaminophen (Acetaminophen 325 Mg Tab) 325 mg PO Q6H PRN PRN Reason: Mild Pain Stop: 11/26/20 02:14 Aspirin (Aspirin 81 Mg Ectab) 81 mg PO DAILY [facility] Stop: 11/25/20 08:59 Last Admin: 11/08/20 07:43 Dose: 81 mg Documented by: Atorvastatin Calcium (Atorvastatin 20 Mg Tab) 20 mg PO DAILY [facility] Stop: 11/25/20 08:59 Last Admin: 11/08/20 07:42 Dose: 20 mg Documented by: Fluticasone Propionate (Fluticasone Propionate Na Spr 16 Gm Btl) 1 sprays NA BID [facility] Stop: 11/30/20 10:59 Last Admin: 11/08/20 07:42 Dose: Not Given Documented by: Furosemide (Furosemide 40 Mg Tab) 40 mg PO QAM [facility] Stop: 12/04/20 09:59 Last Admin: 11/08/20 07:42 Dose: 40 mg Documented by: Heparin Sodium (Porcine) (Heparin Sod 5,000 Unit/0.5 Ml Vial) 5,000 units SQ Q12 [facility] Stop: 11/24/20 21:28 Last Admin: 11/08/20 07:43 Dose: 5,000 units Documented by: Levothyroxine Sodium (Levothyroxine Sodium 50 Mcg Tablet) 50 mcg PO DAILYBB [facility] Stop: 11/25/20 06:29 Last Admin: 11/08/20 05:57 Dose: 50 mcg Documented by: Magnesium Oxide (Magnesium Oxide 400 Mg Tab) 400 mg PO QAM [facility] Stop: 12/02/20 14:44 Last Admin: 11/08/20 07:44 Dose: 400 mg Documented by: Melatonin (Melatonin 3 Mg Tab) 3 mg PO HS PRN PRN Reason: Sleep Stop: 11/26/20 00:38 Last Admin: 11/02/20 01:06 Dose: 3 mg Documented by: Metoprolol Tartrate (Metoprolol Tartrate 1 Mg/Ml Vial) 2.5 mg IV Q4H PRN PRN Reason: Tachycardia Stop: 12/04/20 20:47 Last Admin: 11/06/20 01:22 Dose: 2.5 mg Documented by: Metoprolol Tartrate (Metoprolol Tartrate 25 Mg Tab) 25 mg PO BID [facility] Stop: 12/06/20 11:29 Last Admin: 11/08/20 07:43 Dose: 25 mg Documented by: Pantoprazole Sodium (Pantoprazole 40 Mg Tab) 40 mg PO DAILY [facility] Stop: 11/25/20 08:59 Last Admin: 11/08/20 07:44 Dose: 40 mg Documented by: Polyethylene Glycol (Polyethylene (Miralax) 17 Gm Pack) 17 gm PO DAILY PRN PRN Reason: Constipation Stop: 11/24/20 21:28 Last Admin: 11/02/20 01:06 Dose: 17 gm Documented by: Prednisone (Prednisone 5 Mg Tab) 5 mg PO DAILY [facility] Stop: 11/30/20 17:59 Last Admin: 11/08/20 07:44 Dose: 5 mg Documented by:
[2020-11-09] MEDS: LEVOTHYROXINE SODIUM 50 MCG TABLET PO SCH (06:28)
[2020-11-09] MEDS: MAGNESIUM OXIDE 400 MG TAB PO SCH (08:42)
[2020-11-09] MEDS: ASPIRIN 81 MG ECTAB PO SCH (08:42)
[2020-11-09] MEDS: HEPARIN SOD 5,000 UNIT/0.5 ML VIAL SQ SCH ×2 (08:42→20:45)
[2020-11-09] MEDS: PANTOprazole 40 MG TAB PO SCH (08:42)
[2020-11-09] MEDS: METOPROLOL TARTRATE 25 MG TAB PO SCH ×2 (08:42→20:45)
[2020-11-09] MEDS: FLUTICASONE PROPIONATE NA SPR 16 GM BTL SCH ×2 (08:42→20:45)
[2020-11-09] MEDS: ATORVASTATIN 20 MG TAB PO SCH (08:42)
[2020-11-09] MEDS: predniSONE 5 MG TAB PO SCH (08:43)
[2020-11-09] MEDS: FUROSEMIDE 40 MG TAB PO SCH (08:47)
[2020-11-09] MEDS ORDERED: FUROSEMIDE 20 MG in SYRINGE 0 ML IV ONE (13:45)
--- NOTE | 2020-11-09 13:45 | Hospitalist Progress Note ---
Date of Service November 09, 2020 Assessment & Plan (1) Acute on chronic combined systolic and diastolic heart failure: Plan: Echocardiogram with features concerning for infiltrative cardiomyopathy however, negative fat pad biopsy. 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 Creatinine improved to 2.0 on current once daily dose of diuretic. Cardiology and nephrology optimizing regimen. Currently on metoprolol 25 p.o. twice daily and Lasix 40 mg p.o. once daily. Palliative medicine on board for poor prognosis. As he has been notably declining over the past two days and is now confused, I spoke with daughter who prefers that he be a DNR. Status was updated and we are planning a family conference with him tomorrow afternoon to continue goals of care discussion. (2) Cardiorenal syndrome: Plan: Nephrology is on board. Creatinine is improving. Likely cardiorenal syndrome. Plan to continue with 40 mg p.o. daily Lasix continue monitor ins and outs along with daily weights. In setting of worsening crackles and tachypnea today, gave an extra dose of lasix. (3) Pericardial effusion: Plan: started on low dose prednisone this admission. Steroids as well as hospitalization may be adding to intermittent confusion. Currently patient is sleeping and cannot assess mental status. Cont for now and monitor closely. (4) Atrial flutter: Plan: No anticoagulation 2/2 pericardial effusion. Continue Lopressor at current dose. (5) CKD (chronic kidney disease), stage III: Plan: Baseline~1.3 Monitor renal functions, avoid nephrotoxic agents when possible. Nephrology is following. (6) CAD (coronary artery disease): Plan: Continue medical management with aspirin 81, atorvastatin 20 mg daily, Lopressor. (7) Hypothyroidism: Plan: Continue levothyroxine, with ongoing tachycardia, repeat TSH is only slightly elevated from normal range. No adjustments to Synthroid. Repeat level as outpatient with primary care provider. (8) Generalized weakness: Plan: No gross focal deficits on exam. PT/OT as tolerated (9) DVT prophylaxis: Plan: Heparin SQ Full Code Dispo-cont telemetry monitoring. Once optimized consider SNF in light of intermittent confusion demonstrated during this hospital stay. 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 When put up into a sitting position, he was unable to hold this position without assistance. Oxygen saturation was checked and was within normal limits. He had some tachypnea just recently. Crackles were present to lung bases He was confused and couldn't tell me his name or who he was. Review of Systems Review of Systems: limited ROS as patient is confused. Physical Exam Physical Exam: CONSTITUTIONAL: thin, vitals as above, appears exhausted EYES: normal conjunctivae, no scleral icterus ENT: external ear and nose normal, MMM RESPIRATORY: increased crackles at lung bases bilaterally, no rales or wheezes, slightly increased respiratory effort today. CARDIOVASCULAR: Tachy rate and rhythm, S1 and 2 heard without murmurs, gallops or rubs, no JVD, no peripheral edema GASTROINTESTINAL: soft, nontender, nondistended. MUSCULOSKELETAL: Patient very fatigued, frail and elderly. Generalized weakness. SKIN: warm and dry NEUROLOGIC: Lethargic, unable to assess. Couldn't answer basic orientation questions. Results & Data Results & Data ([facility]) Vital Signs (Past 12 Hours) Vital Signs Temp Pulse Resp BP BP Pulse Ox 11/09/20 10:50 36.3 C L 106 H 19 114/75 98 11/09/20 08:36 36.4 C L 109 H 22 117/81 94 11/09/20 02:42 36.6 C 107 H 20 100/62 95 Medications Administered Current Inpatient Medications Acetaminophen (Acetaminophen 325 Mg Tab) 325 mg PO Q6H PRN PRN Reason: Mild Pain Stop: 11/26/20 02:14 Aspirin (Aspirin 81 Mg Ectab) 81 mg PO DAILY [facility] Stop: 11/25/20 08:59 Last Admin: 11/09/20 08:42 Dose: 81 mg Documented by: Atorvastatin Calcium (Atorvastatin 20 Mg Tab) 20 mg PO DAILY [facility] Stop: 11/25/20 08:59 Last Admin: 11/09/20 08:42 Dose: 20 mg Documented by: Fluticasone Propionate (Fluticasone Propionate Na Spr 16 Gm Btl) 1 sprays NA BID [facility] Stop: 11/30/20 10:59 Last Admin: 11/09/20 08:42 Dose: 1 sprays Documented by: Furosemide (Furosemide 40 Mg Tab) 40 mg PO QAM [facility] Stop: 12/04/20 09:59 Last Admin: 11/09/20 08:47 Dose: 40 mg Documented by: Heparin Sodium (Porcine) (Heparin Sod 5,000 Unit/0.5 Ml Vial) 5,000 units SQ Q12 [facility] Stop: 11/24/20 21:28 Last Admin: 11/09/20 08:42 Dose: 5,000 units Documented by: Furosemide 20 mg/ Syringe 2 mls @ 4 mls/min IV ONE ONE Stop: 11/09/20 13:46 Levothyroxine Sodium (Levothyroxine Sodium 50 Mcg Tablet) 50 mcg PO DAILYBB [facility] Stop: 11/25/20 06:29 Last Admin: 11/09/20 06:28 Dose: 50 mcg Documented by: Magnesium Oxide (Magnesium Oxide 400 Mg Tab) 400 mg PO QAM [facility] Stop: 12/02/20 14:44 Last Admin: 11/09/20 08:42 Dose: 400 mg Documented by: Melatonin (Melatonin 3 Mg Tab) 3 mg PO HS PRN PRN Reason: Sleep Stop: 11/26/20 00:38 Last Admin: 11/02/20 01:06 Dose: 3 mg Documented by: Metoprolol Tartrate (Metoprolol Tartrate 1 Mg/Ml Vial) 2.5 mg IV Q4H PRN PRN Reason: Tachycardia Stop: 12/04/20 20:47 Last Admin: 11/06/20 01:22 Dose: 2.5 mg Documented by: Metoprolol Tartrate (Metoprolol Tartrate 25 Mg Tab) 25 mg PO BID [facility] Stop: 12/06/20 11:29 Last Admin: 11/09/20 08:42 Dose: 25 mg Documented by: Pantoprazole Sodium (Pantoprazole 40 Mg Tab) 40 mg PO DAILY [facility] Stop: 11/25/20 08:59 Last Admin: 11/09/20 08:42 Dose: 40 mg Documented by: Polyethylene Glycol (Polyethylene (Miralax) 17 Gm Pack) 17 gm PO DAILY PRN PRN Reason: Constipation Stop: 11/24/20 21:28 Last Admin: 11/02/20 01:06 Dose: 17 gm Documented by: Prednisone (Prednisone 5 Mg Tab) 5 mg PO DAILY [facility] Stop: 11/30/20 17:59 Last Admin: 11/09/20 08:43 Dose: 5 mg Documented by:
--- NOTE | 2020-11-09 14:26 | XRay Report ---
SINGLE VIEW CHEST CLINICAL HISTORY: Hypoxia. FINDINGS: An AP, portable, upright chest radiograph is compared to study dated 11/04/2020. Correlation is made with chest CT dated 05/07/2017. The heart is enlarged noting atherosclerotic calcification of the thoracic aorta. There is pulmonary vascular congestion. There are layering pleural effusions wit h bibasilar consolidation. No pneumothorax is seen. The skeletal structures are osteopenic. The bony thorax is grossly intact. IMPRESSION: 1. Cardiomegaly with pulmonary vascular congestion. 2. Small pleural effusions with bibasilar consolidation. Follow-up to resolution is recommended. ACT 112: Negative or not required by law. Electronically signed by: Pino Yeager M.D. 11/09/2020 2:25 PM
[2020-11-10] MEDS: LEVOTHYROXINE SODIUM 50 MCG TABLET PO SCH (05:49)
[2020-11-10 08:09] LABS: BUN Creatinine Ratio 28.6 (10-20); Calcium 9.4 mg/dl (8.5-10.1); Creatinine Clr Calc Pharmacy 25.8 ml/min; Est GFR (African American) 31.3 ml/min; Potassium 4.2 mmol/L (3.5-5.1)
[2020-11-10] MEDS: ASPIRIN 81 MG ECTAB PO SCH (08:16)
[2020-11-10] MEDS: ATORVASTATIN 20 MG TAB PO SCH (08:16)
[2020-11-10] MEDS: FLUTICASONE PROPIONATE NA SPR 16 GM BTL SCH ×2 (08:16→21:10)
[2020-11-10] MEDS: FUROSEMIDE 40 MG TAB PO SCH (08:16)
[2020-11-10] MEDS: predniSONE 5 MG TAB PO SCH (08:16)
[2020-11-10] MEDS: MAGNESIUM OXIDE 400 MG TAB PO SCH (08:16)
[2020-11-10] MEDS: METOPROLOL TARTRATE 25 MG TAB PO SCH ×2 (08:16→21:15)
[2020-11-10] MEDS: PANTOprazole 40 MG TAB PO SCH (08:16)
[2020-11-10] MEDS: HEPARIN SOD 5,000 UNIT/0.5 ML VIAL SQ SCH ×2 (08:16→21:15)
--- NOTE | 2020-11-10 10:26 | Nephrology Progress Note ---
Date of Service November 10, 2020 Assessment & Plan (1) ROSA (acute kidney injury): Plan: Patient with acute kidney injury likely cardiorenal syndrome. Creatinine downtrending. - Continue on furosemide 40 mg daily. - UOP has been variable, but better yesterday,( got Iv ) - Monitor input output -Avoid nephrotoxins (2) Acute on chronic combined systolic and diastolic CHF (congestive heart failure): Plan: Patient with CHF. He has severe concentric LVH on echo and mild pericardial effusion. Patient was slightly negative past 24 hours. If feels better today. -Maintain the fluid limit of 1.2 L daily -2 g sodium diet -Daily standing weight if able (3) Atrial flutter: Plan: Continue metoprolol 75 mg daily per cardiology. Patient still tachycardic. Admission and Anticipated Discharge Date Admission Date: October 25, 2020 Subjective 85-year-old man admitted for acute heart failure thought secondary to inf iltrative cardiomyopathy from amyloidosis Confused looks cachetic, not sob at rest , trace edema. Now DNR, likely family meeting soon to determine the ceiling of care. Review of Systems Review of Systems: All other systems were reviewed and negative except as noted in HPI Physical Exam Physical Exam: General exam: Appears comfortable, no acute distress HEENT: Pupils are equal and reactive to light Neck: No JVD, neck is supple trachea is midline Respiratory system: Clear breath sounds bilaterally. Gastrointestinal: Abdomen is soft, non distended, non tender, bowel sounds are present CVS: Regular rate and rhythm. No murmurs, rubs or gallops Musculoskeletal: No joint or muscle tenderness Extremities: Non tender, Trace edema, peripheral pulses are present Neuro: Confused Results & Data ([facility]) Vital Signs (Past 12 Hours) Vital Signs Temp Pulse Pulse Resp BP BP Pulse Ox 11/10/20 08:00 111 H 11/10/20 07:22 36.4 C L 110 H 19 126/75 96 11/10/20 03:58 36.6 C 96 H 24 119/70 96 11/09/20 23:40 36.3 C L 97 H 104 H 16 110/66 95 Laboratory Results 11/08/20 06:37 11/10/20 07:05
--- NOTE | 2020-11-10 21:07 | Hospitalist Progress Note ---
Date of Service November 10, 2020 Assessment & Plan (1) Acute on chronic combined systolic and diastolic heart failure: Plan: Echocardiogram with features concerning for infiltrative cardiomyopathy however, negative fat pad biopsy. 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 Creatinine improved to 2.0 on current once daily dose of diuretic. Cardiology and nephrology optimizing regimen. Currently on metoprolol 25 p.o. twice daily and Lasix 40 mg p.o. once daily. Palliative medicine on board for poor prognosis. As he has been notably declining over the past two days and is now confused, I spoke with daughter who prefers that he be a DNR. Status was updated and we are planning transition to facility with Hospice. (2) Cardiorenal syndrome: Plan: Nephrology is on board. Creatinine is stable around 2.0 on current diuretic therapy needed. Likely cardiorenal syndrome. Plan to continue with 40 mg p.o. daily Lasix continue monitor ins and outs along with daily weights. In setting of worsening crackles and tachypnea today, gave an extra dose of lasix. (3) Pericardial effusion: Plan: started on low dose prednisone this admission. Stopping this now to limit confusion and with known upcoming transition to hospice. (4) Atrial flutter: Plan: No anticoagulation 2/2 pericardial effusion. Continue Lopressor at current dose. (5) CKD (chronic kidney disease), stage III: Plan: Baseline~1.3 Monitor renal functions, avoid nephrotoxic agents when possible. Nephrology is following. (6) CAD (coronary artery disease): Plan: Continue medical management with aspirin 81, atorvastatin 20 mg daily, Lopressor. (7) Hypothyroidism: Plan: Continue levothyroxine, with ongoing tachycardia, repeat TSH is only slightly elevated from normal range. No adjustments to Synthroid. Repeat level as outpatient with primary care provider. (8) Generalized weakness: Plan: No gross focal deficits on exam. PT/OT as tolerated (9) DVT prophylaxis: Plan: Heparin SQ Full Code Dispo-cont telemetry monitoring for now. Plan for updated discussion with palliative team in a.m. and hospice transition at discharge. Plan for facility as support unavailable at home 02/11. Both daughter and patient were present for this conversation and patient is oriented and agrees with this plan. Pallavi Vargas DO [facility]ist Admission and Anticipated Discharge Date Admission Date: October 25, 2020 Subjective I came in earlier today and Mr. Desai was trying to eat his lunch but could not eat all of it. He was exhausted and reporting exhaustion. He denied increased work of breathing and felt his not short of breath. He denied any pain. Later this evening I met with he and his daughter at bedside approximately 5 PM. We discussed his feelings on a transition to hospice care and he agreed. CODE STATUS was switched to DNR over the weekend with plan to proceed to a rehab facility with the care of a hospice agency. Goal will be to not return to the hospital and if he worsens to provide palliative medications. Mr. Hernandes is oriented and agrees with all of this. Review of Systems Review of Systems: All systems were reviewed and negative except as indicated in HPI above. Physical Exam Physical Exam: CONSTITUTIONAL: thin, vitals as above, appears exhausted EYES: normal conjunctivae, no scleral icterus ENT: external ear and nose normal, MMM RESPIRATORY: CTAB, no rales or wheezes, normal respiratory effort.. CARDIOVASCULAR: Tachy rate and rhythm, S1 and 2 heard without murmurs, gallops or rubs, no JVD, no peripheral edema GASTROINTESTINAL: soft, nontender, nondistended. MUSCULOSKELETAL: Patient very fatigued, frail and elderly. Generalized weakness. SKIN: warm and dry NEUROLOGIC: oriented, engaged in conversation. alert but tired. Results & Data Results & Data ([facility]) Vital Signs (Past 12 Hours) Vital Signs Temp Pulse Pulse Pulse Resp BP Pulse Ox 11/10/20 19:55 36.4 C L 108 H 18 111/68 95 11/10/20 15:37 36.4 C L 122 H 19 119/77 94 11/10/20 15:00 116 H 11/10/20 11:45 17 116/76 97 Laboratory Results [facility] 11/10/20 07:05 Sodium 134 L Potassium 4.2 Chloride 101 Carbon Dioxide 25 BUN 62 H Creatinine 2.17 H Glucose 88 Calcium 9.4 Medications Administered Current Inpatient Medications Acetaminophen (Acetaminophen 325 Mg Tab) 325 mg PO Q6H PRN PRN Reason: Mild Pain Stop: 11/26/20 02:14 Aspirin (Aspirin 81 Mg Ectab) 81 mg PO DAILY [facility] Stop: 11/25/20 08:59 Last Admin: 11/10/20 08:16 Dose: 81 mg Documented by: Atorvastatin Calcium (Atorvastatin 20 Mg Tab) 20 mg PO DAILY [facility] Stop: 11/25/20 08:59 Last Admin: 11/10/20 08:16 Dose: 20 mg Documented by: Fluticasone Propionate (Fluticasone Propionate Na Spr 16 Gm Btl) 1 sprays NA BID [facility] Stop: 11/30/20 10:59 Last Admin: 11/10/20 08:16 Dose: 1 sprays Documented by: Furosemide (Furosemide 40 Mg Tab) 40 mg PO QAM [facility] Stop: 12/04/20 09:59 Last Admin: 11/10/20 08:16 Dose: 40 mg Documented by: Heparin Sodium (Porcine) (Heparin Sod 5,000 Unit/0.5 Ml Vial) 5,000 units SQ Q12 [facility] Stop: 11/24/20 21:28 Last Admin: 11/10/20 08:16 Dose: 5,000 units Documented by: Levothyroxine Sodium (Levothyroxine Sodium 50 Mcg Tablet) 50 mcg PO DAILYBB [facility] Stop: 11/25/20 06:29 Last Admin: 11/10/20 05:49 Dose: 50 mcg Documented by: Magnesium Oxide (Magnesium Oxide 400 Mg Tab) 400 mg PO QAM [facility] Stop: 12/02/20 14:44 Last Admin: 11/10/20 08:16 Dose: 400 mg Documented by: Melatonin (Melatonin 3 Mg Tab) 3 mg PO HS PRN PRN Reason: Sleep Stop: 11/26/20 00:38 Last Admin: 11/02/20 01:06 Dose: 3 mg Documented by: Metoprolol Tartrate (Metoprolol Tartrate 1 Mg/Ml Vial) 2.5 mg IV Q4H PRN PRN Reason: Tachycardia Stop: 12/04/20 20:47 Last Admin: 11/06/20 01:22 Dose: 2.5 mg Documented by: Metoprolol Tartrate (Metoprolol Tartrate 25 Mg Tab) 25 mg PO BID [facility] Stop: 12/06/20 11:29 Last Admin: 11/10/20 08:16 Dose: 25 mg Documented by: Pantoprazole Sodium (Pantoprazole 40 Mg Tab) 40 mg PO DAILY [facility] Stop: 11/25/20 08:59 Last Admin: 11/10/20 08:16 Dose: 40 mg Documented by: Polyethylene Glycol (Polyethylene (Miralax) 17 Gm Pack) 17 gm PO DAILY PRN PRN Reason: Constipation Stop: 11/24/20 21:28 Last Admin: 11/02/20 01:06 Dose: 17 gm Documented by: Prednisone (Prednisone 5 Mg Tab) 5 mg PO DAILY [facility] Stop: 11/30/20 17:59 Last Admin: 11/10/20 08:16 Dose: 5 mg Documented by:
[2020-11-11] MEDS: LEVOTHYROXINE SODIUM 50 MCG TABLET PO SCH (05:51)
[2020-11-11] MEDS: PANTOprazole 40 MG TAB PO SCH (08:32)
[2020-11-11] MEDS: ATORVASTATIN 20 MG TAB PO SCH (08:32)
[2020-11-11] MEDS: MAGNESIUM OXIDE 400 MG TAB PO SCH (08:32)
[2020-11-11] MEDS: HEPARIN SOD 5,000 UNIT/0.5 ML VIAL SQ SCH (08:32)
[2020-11-11] MEDS: METOPROLOL TARTRATE 25 MG TAB PO SCH (08:32)
[2020-11-11] MEDS: FUROSEMIDE 40 MG TAB PO SCH (08:32)
[2020-11-11] MEDS: ASPIRIN 81 MG ECTAB PO SCH (09:58)
[2020-11-11] MEDS ORDERED: ONDANSETRON INJ 2 MG/ML 2 ML VIAL IV PRN (12:15)
[2020-11-11] MEDS ORDERED: LORazepam 0.5 MG/1 ML VIAL IV PRN (13:14)
[2020-11-11] MEDS ORDERED: HYDROmorphone INJ 0.5 MG/0.5 ML SYR IV PRN (13:14)
[2020-11-11] MEDS ORDERED: GLYCOPYRROLATE 0.2 MG/ML VIAL IV PRN (13:14)
--- NOTE | 2020-11-11 14:41 | Palliative Care Progress Note ---
Date of Service November 11, 2020 Assessment & Plan (1) Nausea: Plan: Possibly anxiety related. Zofran ordered. Discussed with RN. Lorazepam also ordered. (2) Dyspnea: Plan: in the setting of mixed heart failure and cardiorenal syndrome. Opioid ordered prn for air hunger. (3) Palliative care encounter: Plan: I spoke with Faizan' daughter, Becki, on the phone and updated her. She noticed when she spoke with him earlier this morning that he was confused. Plan has been discharge to SNF with hospice care, however, he does not appear comfortable for discharge. I discussed shift of focus to comfort measures here in the hospital to focus on symptom management and then transfer to SNF if he is able. She is agreeable to this. Notified Dr. Rojas who is in agreement. (4) Acute on chronic combined systolic and diastolic CHF (congestive heart failure): (5) Cardiorenal syndrome: (6) CAD (coronary artery disease): (7) Ischemic cardiomyopathy: Admission and Anticipated Discharge Date Admission Date: October 25, 2020 Subjective Complaining of nausea this morning. Denies abdominal pain, constipation. Breathing is labored but he denies feeling short of breath. LBM 8/1. Review of Systems Review of Systems: [place] Symptom Assessment Scale Pain 0/3 Dyspnea 1/3 Nausea 2/3 Fatigue 2/3 Anxiety 2/3 Drowsiness 1/3 Palliative Performance Score 30% Physical Exam Constitutional: + ill appearing; + uncomfortable Respiratory: + labored breathing and + uses accessory muscles Cardiovascular: Rate/Rhythm: regular rhythm and + tachycardic Gastrointestinal (Abdomen): soft, nontender Musculoskeletal: Extremities: + muscle atrophy Neurologic: awake and + confused Results & Data ([facility]) Vital Signs (Past 12 Hours) Vital Signs Temp Pulse Pulse Resp BP BP Pulse Ox 11/11/20 11:48 97.5 F L 110 H 20 111/61 98 11/11/20 07:15 97.7 F 108 H 19 110/77 96 11/11/20 04:15 96.8 F L 123 H 22 104/66 94 PG Care Time/CCT Total # of Minutes Spent Total Time Spent: 40 Total Time Spent with Patient: Total time spent is greater than 50% in coordination of care (as documented) at patient's floor/unit and/or counseling patient: symptom management, goals of care, family education and support, coordination of care. Coding Level of Care Code 49451 Subseq Hosp Care Lvl 3 Diagnoses Nausea R11.0 Dyspnea R06.00 Palliative care encounter Z51.5 Acute on chronic combined systolic and diastolic CHF (congestive heart failure) I50.43 Cardiorenal syndrome I13.10 CAD (coronary artery disease) I25.10 Ischemic cardiomyopathy I25.5
--- NOTE | 2020-11-11 14:42 | Hospitalist Progress Note ---
Date of Service November 11, 2020 Assessment & Plan (1) Acute on chronic combined systolic and diastolic heart failure: Plan: Echocardiogram with features concerning for infiltrative cardiomyopathy however, negative fat pad biopsy. 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 This morning patient was on 2 L of nasal cannula. Cardiology is on board. Overall poor prognosis. Palliative medicine was consulted. Initial plan was to discharge on hospice care. However, given decline in clinical status patient was transitioned to comfort measures today. Transfer to [facility]. (2) Cardiorenal syndrome: Plan: Patient transitioned to comfort care today. (3) Pericardial effusion: Plan: as above (4) Atrial flutter: Plan: as above (5) CKD (chronic kidney disease), stage III: Plan: as above (6) CAD (coronary artery disease): Plan: as above (7) Hypothyroidism: Plan: as above (8) Generalized weakness: Plan: as above (9) DVT prophylaxis: Plan: as above Admission and Anticipated Discharge Date Admission Date: October 25, 2020 Subjective Patient is resting comfortably in the bed. He was on 2 L of nasal cannula. Appears very lethargic. Denies any chest pain, shortness of breath, abdominal pain, cough, nausea or any vomiting. Review of Systems Review of Systems: All systems reviewed & are unremarkable except as noted in HPI & below Physical Exam Physical Exam: General: Ill-appearing cachectic gentleman HENT: NCAT, MMM, EOMI Eyes: PERRLA Neck: Supple, normal range of motion CVS: Tachycardic Resp: b/l crackles appreciated Abdomen: Soft, distended nontender Extremities: trace LE edema Neuro: face symmetric,no focal deficit Skin: no rashes/lesions/errythema MSK: no joint swelling/erythema Results & Data Results & Data ([facility]) Vital Signs (Past 12 Hours) Vital Signs Temp Pulse Pulse Resp BP BP Pulse Ox 11/11/20 11:48 36.4 C L 110 H 20 111/61 98 11/11/20 07:15 36.5 C 108 H 19 110/77 96 11/11/20 04:15 36 C L 123 H 22 104/66 94
--- NOTE | 2020-11-12 09:25 | Palliative Care Progress Note ---
Date of Service November 12, 2020 Assessment & Plan (1) Nausea: Plan: Seems to be resolved today. Less awake, but arousable at times. (2) Dyspnea: Plan: In the setting of mixed heart failure and cardiorenal syndrome. Opioid ordered prn for air hunger. Pt has not required any dosing over the past 24 hours. (3) Palliative care encounter: Plan: Patient remains on comfort measures now. Not requiring a lot for symptom management over the past 24 hours. He was able to use the urinal with the nurse. Would support re-entertaining the idea of him going to a SNF if no further acute decline noted. Dr. Rojas aware. Patient life expectancy is likely days to a week. (4) Acute on chronic combined systolic and diastolic CHF (congestive heart failure): (5) Cardiorenal syndrome: (6) CAD (coronary artery disease): (7) Ischemic cardiomyopathy: Admission and Anticipated Discharge Date Admission Date: October 25, 2020 Subjective Review of Systems Review of Systems: [place] Symptom Assessment Scale Pain 0/3 Dyspnea 1/3 Nausea 1/3 Fatigue 2/3 Anxiety 1/3 Drowsiness 2/3 Palliative Performance Score 20% Physical Exam Constitutional: + ill appearing ENMT: Mouth: + dry oral mucous membranes Respiratory: + labored breathing and + uses accessory muscles Cardiovascular: Rate/Rhythm: regular rhythm and + tachycardic Musculoskeletal: Extremities: + muscle atrophy Neurologic: awake and + confused Results & Data ([facility]) Vital Signs (Past 12 Hours) Vital Signs Temp Pulse Resp BP Pulse Ox 11/12/20 06:59 36.5 C 113 H 20 88/54 L 98 PG Care Time/CCT Total # of Minutes Spent Total Time Spent with Patient: Total time spent is greater than 50% in coordination of care (as documented) at patient's floor/unit and/or counseling patient: 25 minutes with > 50% of that time spent assessing the patient, providing symptom management and collaborating with IDT Coding Level of Care Code 41249 Subseq Hosp Care Lvl 2 Diagnoses Nausea R11.0 Dyspnea R06.00 Palliative care encounter Z51.5 Acute on chronic combined systolic and diastolic CHF (congestive heart failure) I50.43 Cardiorenal syndrome I13.10 CAD (coronary artery disease) I25.10 Ischemic cardiomyopathy I25.5 Time Spent (min) 25
--- NOTE | 2020-11-12 14:04 | Hospitalist Progress Note ---
Date of Service November 12, 2020 Assessment & Plan (1) Acute on chronic combined systolic and diastolic heart failure: Plan: Echocardiogram with features concerning for infiltrative cardiomyopathy however, negative fat pad biopsy. 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 Palliative medicine was consulted. Initial plan was to discharge on hospice care. However, given decline in clinical status patient was transitioned to comfort measures. Remains on Dilaudid/Ativan and Robinul. (2) Cardiorenal syndrome: Plan: Patient is on comfort care now. No further labs.. (3) Pericardial effusion: Plan: as above (4) Atrial flutter: Plan: as above (5) CKD (chronic kidney disease), stage III: Plan: as above (6) CAD (coronary artery disease): Plan: as above (7) Hypothyroidism: Plan: as above (8) Generalized weakness: Plan: as above (9) DVT prophylaxis: Plan: as above Admission and Anticipated Discharge Date Admission Date: October 25, 2020 Subjective Doing okay this morning. Resting comfortably. Not appear to be in any distress. Review of Systems Review of Systems: Unobtainable due to reduced consciousness Physical Exam Physical Exam: General: Patient is on comfort care, does not appear to be in any distress. Results & Data Results & Data ([facility]) Vital Signs (Past 12 Hours) Vital Signs Temp Pulse Resp BP Pulse Ox 11/12/20 06:59 36.5 C 113 H 20 88/54 L 98
--- NOTE | 2020-11-13 12:52 | Palliative Care Progress Note ---
Date of Service November 13, 2020 Assessment & Plan (1) Dyspnea: Plan: Although his breathing appears labored, he denies feeling short of breath. Will monitor. Opioid available as needed. If he is discharged to SNF or loses IV access, he could take oxycodone 5mg po Q 4 hours prn. (2) Anxiety: Plan: He is clearly distressed this morning and frustrated with the confusion that he is having. Will use prn lorazepam. (3) Palliative care encounter: Plan: I spoke with his daughter, Becki, on the phone. She feels that comfort is most important goal at this point and would want medication for symptom relief even if he has sedation. Anticipate discharge to SNF later today with hospice to follow. (4) Cardiorenal syndrome: (5) Acute on chronic combined systolic and diastolic heart failure: (6) CAD (coronary artery disease): (7) Ischemic cardiomyopathy: Admission and Anticipated Discharge Date Admission Date: October 25, 2020 Subjective Anxious. Reports feeling uncomfortable. "My head is messed up." Denies dyspnea but breathing appears labored. Review of Systems Review of Systems: [place] Symptom Assessment Scale Pain 0/3 Dyspnea 1/3 Anxiety 2/3 Fatigue 2/3 Nausea 1/3 Drowsiness 0/3 Palliative Performance Score 30% Physical Exam Constitutional: + ill appearing; + uncomfortable Respiratory: + labored breathing and + uses accessory muscles Cardiovascular: Extremities: no edema Musculoskeletal: Extremities: + muscle atrophy Neurologic: awake and + confused Psychiatric: Affect: + anxious affect PG Care Time/CCT Total # of Minutes Spent Total Time Spent with Patient: Total time spent is greater than 50% in coordination of care (as documented) at patient's floor/unit and/or counseling patient: Coding Level of Care Code 91355 Subseq Hosp Care Lvl 2 Diagnoses Dyspnea R06.00 Palliative care encounter Z51.5 Anxiety F41.9 Cardiorenal syndrome I13.10 Acute on chronic combined systolic and diastolic heart failure I50.43 CAD (coronary artery disease) I25.10 Ischemic cardiomyopathy I25.5
--- NOTE | 2020-11-13 13:04 | Discharge Summary ---
Date of Service November 13, 2020 Admission HPI Per Admitting Provider Pt is 85 y/o M with PMH CAD, ischemic cardiomyopathy, EF: 36% on 09/24/2020, grade III diastolic dysfunction, CKD III, hypothyroidism presented to ER with complaint of increased lower extremity edema x1-2 weeks. Patient also reports increased shortness of breath, orthopnea. He also reports increased generalized weakness and having difficulty ambulating recently. denies fall or trauma. In 09/2020 patient's Lasix was increased by cardiology to 40 mg a day. Patient reports med compliance and following low-sodium diet. He reports drinking 4 glasses of water, 1 cup coffee and 2 to 3 cups of tea daily. Denies fever /chills, diaphoresis, N/V/D/C, BONNER, dizziness, syncope, vision changes, neck pain, CP, palpitations, cough, sore throat, choking, otalgia, rhinorrhea, abdominal pain, paresthesias, rashes, urinary symptoms. Admission Exam Per Admitting Provider General: no distress, WDWN Head: normocephalic, atraumatic Eyes: PERRL, EOM's intact, conjunctiva non-injected, anicteric ENT: normal inspection external ears, nose, mucous membranes moist Neck: supple, trachea midline Lungs: no respiratory distress, +rales bases bilaterally CV: tachycardia, rate 108, regular rhythm, 2-3+ pretibial edema Abd: normal BS, soft, non-tender Ext: no cyanosis, no calf tenderness Neuro: A&O x 3, no focal deficits noted, normal affect Skin: warm, dry Principal Diagnosis Acute on chronic combined systolic and diastolic heart failure Cardiorenal syndrome Pericardial effusion Generalized weakness Discharge Data Allergies Allergy/AdvReac Type Severity Reaction Status Date / Time Sulfa (Sulfonamide Allergy Intermediate RASH Unverified 10/26/20 18:42 Antibiotics) Consultations 10/25/20 17:26 ED Decision to Admit Stat 10/25/20 21:29 Consult Cardiology Routine 10/29/20 09:15 Consult Nephrology Routine 10/30/20 15:30 Consult General Surgery Routine 11/01/20 16:31 Consult Pulmonology Routine 11/05/20 17:32 Consult Palliative Care Routine 11/11/20 13:14 Consult Palliative Care Routine Procedures Performed Operation Date: 10/31/20 12:00 Actual Procedures p Abdominal Fat Pad Biopsy Under Local Anesthesia(Not Applicable) - Skyler Orourke MD Ordered Studies 10/27/20 01:59 US liver Routine Right pleural effusion is incidentally noted. There is no biliary ductal dilatation. The common bile duct measures 4 mm in caliber. Pancreas is obscured. No hepatic lesions are identified. There is a small amount of perihepatic ascites. There is slight nodularity of the liver surface. Gallbladder is normal. There are no gallstones. There is no right hydronephrosis. IMPRESSION: 1. No gallstones or biliary ductal dilatation. 2. Slight nodularity of the liver surface. This may indicate cirrhosis. Small amount of perihepatic ascites. 3. Right pleural effusion. 10/27/20 02:03 US renal/blad retro comp Urgent Right kidney measures 10.8 cm in maximal dimension and the left measures 10.6 cm. There is no hydronephrosis. Several bilateral renal cysts measure up to 2.5 cm. No renal calculi or solid masses are identified by sonography. Both ureteral jets were identified. Bladder wall thickening and irregularity is noted with trabeculations. Prostate is enlarged and indents the base of the bladder. IMPRESSION: 1. No hydronephrosis. 2. Enlarged prostate. Thickened, trabeculated bladder wall, likely chronic. Hospital Course (1) Acute on chronic combined systolic and diastolic heart failure: Patient presented with progressive shortness of breath and weakness. He had been independent in the past but had had functional decline over time according to the daughter. On admission, evaluation revealed pleural effusion, interstitial edema, elevated BNP. Was comanaged with the filament maker, contact lens fitter. He got IV diuresis. Did have cardiorenal syndrome Echocardiogram with features concerning for infiltrative cardiomyopathy however, negative fat pad biopsy. 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 Palliative medicine was consulted for goals of care. After conversation with patient and daughter, they opted to stop aggressive treatment and pursue comfort care measures. Patient's home medication were discontinued according to their wishes and transition to comfort care measures. Discussed with cycle specialist Dr. Lares today. Recommend discharging patient on oxycodone as needed for pain, Ativan as needed for anxiety and some Zofran as needed for nausea vomiting. Patient discharged to nursing facility for medical facility hospice. (2) Cardiorenal syndrome: (3) Pericardial effusion: (4) Atrial flutter: (5) CKD (chronic kidney disease), stage III: (6) CAD (coronary artery disease): (7) Hypothyroidism: (8) Generalized weakness: Total Time Total Time Spent Total Time Spent (In Minutes): 50 Total Time Includes: Examination of the Patient, Discharge Planning, Medication Reconciliation and Communication With Other Providers Discharge Plan Discharge Items Patient Disposition: Hospice - Medical Facility Reason For Visit: Leg swelling Discharge Diagnosis: Acute on chronic combined systolic and diastolic heart failure Cardiorenal syndrome Pericardial effusion Generalized weakness Activity: As commented below Activity Comment: As tolerated Non-emergency contact: Primary Care Provider Call non-emergency contact if: you have any medication questions Follow-up/Referrals: Román Hawthorne DO [Primary Care Provider] - (Date & Time 11/07/2020 12:00 PM Provider Román Hawthorne DO Department [facility] ) Diet: Heart Healthy Addtl Attending Provider Instructions: Mr Desai. You presented to the hospital with leg swelling and weakness. You were evaluated and managed for the diagnoses listed above. You were comanaged with the Shake Out Worker and Tool Design Checker. Due to poor prognosis, you were transitioned to comfort care after multiple conversation between your Providers, Palliative team and your daughter. You are being discharged to continue comfort care at Nursing facility. It was a pleasure taking care of you. Pending Studies at Discharge: No Stand-Alone Forms: My [facility] Skilled Items Patient informed of condition?: No DNR: Yes Discharge Level of Care: Other Communicable Disease: No Discharge Prognosis: Other Lines: None Urinary Catheter: No Medications and DC Order Prescriptions: New oxycodone 5 mg/5 mL solution 5 mg PO Q4H PRN (Reason: pain) Qty: 200 RF: 0 lorazepam [Ativan] 0.5 mg tablet 0.5 mg sublingual Q6H PRN (Reason: anxiety) Qty: 30 RF: 0 ondansetron HCl [Zofran] 4 mg tablet 4 mg PO TID PRN (Reason: nausea and vomiting) Qty: 20 RF: 0 Discontinued atorvastatin 20 mg tablet 20 mg PO DAILY RF: 0 aspirin 81 mg Tablet,Delayed Release (Dr/Ec) 81 mg PO DAILY RF: 0 carvedilol 3.125 mg tablet 3.125 mg PO BID RF: 0 levothyroxine 50 mcg Tablet 50 mcg PO DAILYBB RF: 0 furosemide 20 mg tablet 40 mg PO DAILY RF: 0 azelastine 137 mcg (0.1 %) Aerosol,[place] 1 - 2 spray INTRANASAL BID RF: 0 polyethylene glycol 3350 [Miralax] 17 gram/dose Powder 17 g PO DIRECTED PRN (Reason: Constipation) RF: 0 fluticasone propionate [Flonase Allergy Relief] 50 mcg/actuation [place],Suspension 1 - 2 spray INTRANASAL Q12H RF: 0 omeprazole 20 mg Tablet,Delayed Release (Dr/Ec) 20 mg PO DAILY RF: 0 Discharge Orders: Discharge Order (Routine); Ordered 11/13/20 Ordered By: Tracey Osorio Admission Data Admit Date/Time: 10/25/20 18:13 Attending Provider: Tracey Osorio I. Admit Provider: Pallavi Vargas Primary Care Provider: Román Hawthorne Other Providers: Britt Lorenzo at [place] ; Mela Lares ; Ana Cristina, ; Pallavi Vargas ; Bjorn Giang ; Navid Escobar ; Skyler Orourke ; Ajay Schulte ; Nikky Rojas Other Interventions: Discharge Summary Assessment (RN) Last Done: 11/13/20 15:33
== END 2020-11-13 17:05 | disposition hospice, inpatient (51) | DRG 987 ==
LOC: ED 15:45 → 2W 18:13 → SUATTDRO 18:13 → 2W 20:20 → 2E 10-27 12:20 → 2W 10-31 19:09 → 2S 11-04 19:29 → 3E 11-11 13:15